=== PATIENT | female | born 1945 | race Caucasian/White ===

== ENCOUNTER → 2017-05-11 | Outpatient (CLI) | payer MEDICARE ==
--- NOTE | 2017-05-12 11:22 | ECHOF ---
Referral Reason:J44.9 COPD MEASUREMENTS -------- HEIGHT: 162.6 cm WEIGHT: 95.3 kg BP: RVIDd: 2.3 cm (< 3.3) IVSd: 1.2 cm (0.6 - 1.1) LVIDd: 4.6 cm (3.9 - 5.3) LVPWd: 1.3 cm (0.6 - 1.1) IVSs: 1.5 cm LVIDs: 2.8 cm LVPWs: 1.7 cm LAESV Index (A-L): 15.46 ml/m Ao Diam: 3.2 cm (2.0 - 3.7) AV Cusp: 1.6 cm (1.5 - 2.6) LA Diam: 3.0 cm (2.7 - 3.8) MV EXCURSION: 20.477 mm (> 18.000) MV EF SLOPE: 115 mm/s (70 - 150) EPSS: 0.6 cm MV E Aung: 0.74 m/s MV DecT: 321 ms MV A Aung: 1.04 m/s MV E/A Ratio: 0.71 RAP: 5.00 mmHg RVSP: 11.42 mmHg FINDINGS -------- Sinus rhythm. This was a technically adequate study. There is mild concentric left ventricular hypertrophy. Overall left ventricular systolic function is normal with, an EF between 60 - 65 %. The diastolic filling pattern is normal for the age of the patient 8.52. The right ventricle is normal in size and function. Normal LA size by volume 22+/-6 ml/m2. The right atrium is normal in size. Aortic valve is trileaflet and is mildly thickened. There is no evidence of aortic regurgitation. There is no evidence of aortic stenosis. The mitral valve leaflets are mildly thickened. Mild mitral annular calcification present. There is trace to mild mitral regurgitation. Trace tricuspid regurgitation present. There is no evidence of pulmonary hypertension. The right ventricular systolic pressure, as measured by Doppler, is 11.42mmHg. The pulmonic valve is normal. The aortic root size is normal. Normal inferior vena cava with normal inspiratory collapse consistent with estimated right atrial pressure of 5 mmHg. There is a small, generalized pericardial effusion present. CONCLUSIONS -------- 1. Sinus rhythm. 2. There is trace to mild mitral regurgitation. 3. Trace tricuspid regurgitation present. 4. There is no evidence of pulmonary hypertension. 5. The right ventricular systolic pressure, as measured by Doppler, is 11.42mmHg. 6. The aortic root size is normal. 7. There is a small, generalized pericardial effusion present. 8. This was a technically adequate study. 9. There is mild concentric left ventricular hypertrophy. 10. Overall left ventricular systolic function is normal with, an EF between 60 - 65 %. 11. The diastolic filling pattern is normal for the age of the patient 8.52 12. Normal LA size by volume 22+/-6 ml/m2. 13. Aortic valve is trileaflet and is mildly thickened. 14. The mitral valve leaflets are mildly thickened. 15. Mild mitral annular calcification present. BUSINESS INTELLIGENCE REPORTING ANALYST: Archana Norman RDCS
== END | disposition home or self-care (01) ==
LOC: RADECHMAIN 16:09
PROVIDERS: ATTEND Internal Medicine Critical Care Medicine
DX: I08.3 Combined rheumatic disorders of mitral, aortic and tricuspid valves (principal); I31.3 Pericardial effusion (noninflammatory)
CPT/HCPCS: 93306

== ENCOUNTER → 2018-12-28 | Outpatient (CLI) | payer MEDICARE ==
--- NOTE | 2018-12-28 16:40 | BD ---
EXAMINATION TYPE: Axial Bone Density DATE OF EXAM: 12/28/2018 COMPARISON: 06.14.2015 CLINICAL HISTORY: 73 YR OLD FEMALE....ICD-10 CODE: POST MENOPAUSAL Height: 61.2 Weight: 220 FRAX RISK QUESTIONS: Glucocorticoids (More than 3mos): YES (Ex: prednisone, prednisolone, methylprednisolone, dexamethasone, and hydrocortisone). History of Fracture in Adulthood: YES RISK FACTORS HISTORY OF: RT SHOULDER FRACTURE 2009...SURGICAL REPAIR...PT OVER AGE 50 Family History of Osteoporosis: YES, HER MOTHER...NO FX Postmenopausal woman: YES AT AGE 49... Take estrogen and/or progesterone medications: ONLY BCP IN PAST FOR 9 YRS Lost more than 2 inches in height since high school: YES Frequent falls: USES CANE, UNSTEADY MEDICATIONS: Prednisone or other steroids: ASTHMA INHALERS AND ORAL MEDS, PREDNISONE PRN, NEBULIZER PRN How Long: FOR MANY YRS Thyroid Medications: YES, SYNTHROID, FOR ABOUT 8 YRS Additional Medications: BP MEDS, VIT D SUPPLEMENT, IBUPROFEN , Additional History: OSTEOARTHRITIS, HYPERTENSION, PT USES A CANE, ASTHMA EXAM MEASUREMENTS: Bone mineral densitometry was performed using the [employer] System. Bone mineral density as measured about the Lumbar spine is: ----- L1-L4(G/cm2): 1.632 T Score Values are as follows: ----- L1: 2.4 ----- L2: 2.3 ----- L3: 2.9 ----- L4: 6.3 ----- L1-L4: 3.8 Bone mineral density has: Increased 8.0% since study of: 06.14.2015 Bone mineral density about the R hip (g/cm2): 1.086 Bone mineral density about the L hip (g/cm2): 1.201 T Score values are as follows: -----R Neck: 0.1 -----L Neck: -0.1 -----R Total: 0.6 -----L Total: 1.5 Bone mineral density has: Increased 0.7% since study of: 06.14.2015 FRAX%s: THERE IS A 16.2% CHANCE FOR A MAJOR OSTEOPOROTIC FX AND A 1.5% FOR HIP.....PROBABILITY OF FX IN 10 YRS TIME IMPRESSION: Normal (Values between +1 and -1 indicate normal bone mass). Consider repeating this study in 5 year s or sooner if there is some new clinical indication. NOTE: T-SCORE=SD OF THE YOUNG ADULT MEAN.
--- NOTE | 2018-12-30 09:50 | MM ---
Reason for exam: screening (asymptomatic). Last mammogram was performed 3 years and 6 months ago. History: Patient is postmenopausal. Family history of breast cancer in aunt at age 70. Took hormonal contraceptives for 7 years beginning at age 19. Physical Findings: A clinical breast exam by your physician is recommended on an annual basis and results should be correlated with mammographic findings. MG 3D Screening Mammo W/Cad Bilateral CC and MLO view(s) were taken. Prior study comparison: June 14, 2015, bilateral MG screening mammo w CAD. December 20, 2009, bilateral digital screening mammogram. There are scattered fibroglandular densities. No significant changes when compared with prior studies. ASSESSMENT: Benign, BI-RAD 2 RECOMMENDATION: Routine screening mammogram of both breasts in 1 year.
== END ==
LOC: RADBDWWP 14:13
PROVIDERS: ATTEND Internal Medicine
DX: Z12.31 Encounter for screening mammogram for malignant neoplasm of breast (principal); Z80.3 Family history of malignant neoplasm of breast; Z78.0 Asymptomatic menopausal state
CPT/HCPCS: 77063; 77067; 77080

== ENCOUNTER → 2019-06-08 | Outpatient (CLI) | payer MEDICARE ==
--- NOTE | 2019-06-08 13:51 | CT ---
EXAMINATION TYPE: CT brain wo con DATE OF EXAM: 06/08/2019 COMPARISON: None HISTORY: Headaches Unenhanced CT of the brain was performed. The ventricles, basal cisterns and sulci overlying the cerebral convexities demonstrate mild enlargem ent. There is no evidence for intracranial hemorrhage or sulcal effacement. There is decreased attenuation about the periventricular white matter and deep white matter of both c erebral hemispheres, compatible with chronic small vessel ischemia. Differential diagnosis does inclu de demyelination. No mass effects are seen.No midline shift. Osseous calvarium is intact. If symptoms persist consider MRI. IMPRESSION: 1. Age related atrophic and chronic small vessel ischemic change without acute intracranial process s een at this time.
== END | disposition home or self-care (01) ==
LOC: RADCTMAIN 13:23
PROVIDERS: ATTEND Internal Medicine
DX: G31.1 Senile degeneration of brain, not elsewhere classified (principal); I67.82 Cerebral ischemia
CPT/HCPCS: 70450

== ENCOUNTER → 2019-10-28 | Outpatient (CLI) | payer MEDICARE ==
--- NOTE | 2019-10-28 18:21 | CT ---
EXAMINATION TYPE: CT chest w con DATE OF EXAM: 10/28/2019 COMPARISON: Chest x-ray 10/12/2019, CT scan [birth year]/1960 HISTORY: SOB, COPD CT DLP: 474.5 mGycm Automated exposure control for dose reduction was used. CONTRAST: CT scan of the chest is performed with IV Contrast, patient injected with 100 mL of Isovue 300. FINDINGS: LUNGS: There is 6 x 5 mm parenchymal nodule posteriorly left lower lobe. This is stable from 2011 katy dy. There is stable 6 x 3 mm elongated nodule along fissure in the right midlung. Linear scarring an d/or atelectasis in both lung bases near diaphragms is present. There is no pleural effusion or pneum othorax seen bilaterally. The tracheobronchial tree is patent. There is a subpleural 6 mm nodule on a xial image 53 retrospectively stable as well. Groundglass changes are most typical of atelectasis. Sc attered areas of linear subsegmental consolidation most typical atelectasis. Emphysematous changes ar e noted and there does appear to be a degree of interlobular septal thickening which is often associa miky with mild chronic interstitial lung disease. MEDIASTINUM: There are no greater than 1 cm hilar or mediastinal lymph nodes. No pericardial effusi on is seen. There is stable cardiomegaly. No evidence of overt failure. There is coronary artery esteban cification in the LAD. There is mild atherosclerotic change in the visualized aorta. OTHER: Osseous structures are demineralized. Multilevel spurring and vacuum disc phenomenon is prese nt. Slight S-shaped scoliotic curvature is seen. Previously described subcentimeter right thyroid nod ule not clearly seen on today's study. Small accessory spleen incidentally noted. IMPRESSION: 1. Stable pulmonary nodules with no new sizable pulmonary nodule. Findings are stable since 2016 and therefore benign. 2. COPD. 3. Coronary artery calcification correlate for atherosclerotic disease.
== END | disposition home or self-care (01) ==
LOC: RADCTMAIN 15:29
PROVIDERS: ATTEND Internal Medicine Critical Care Medicine
DX: J44.9 Chronic obstructive pulmonary disease, unspecified (principal)
CPT/HCPCS: 82565; 84520; 71260; 36415; Q9967

== ENCOUNTER → 2021-01-03 | Outpatient (CLI) | payer MEDICARE ==
--- NOTE | 2021-01-03 12:10 | ECHOF ---
Referral Reason:R06.02 Shortness of breath MEASUREMENTS -------- HEIGHT: 165.1 cm WEIGHT: 95.3 kg BP: RVIDd: 3.7 cm (< 3.3) IVSd: 1.2 cm (0.6 - 1.1) LVIDd: 4.0 cm (3.9 - 5.3) LVPWd: 1.0 cm (0.6 - 1.1) IVSs: 1.4 cm LVIDs: 3.2 cm LVPWs: 1.2 cm LA Diam: 3.3 cm (2.7 - 3.8) Ao Diam: 3.1 cm (2.0 - 3.7) AV Cusp: 1.7 cm (1.5 - 2.6) MV EXCURSION: 17.007 mm (> 18.000) MV EF SLOPE: 104 mm/s (70 - 150) EPSS: 0.3 cm RAP: 5.00 mmHg RVSP: 23.88 mmHg FINDINGS -------- Sinus rhythm. This was a technically adequate study. The left ventricular size is normal. There is mild concentric left ventricular hypertrophy. Overa ll left ventricular systolic function is normal with, an EF between 55 - 60 %. The right ventricle is normal in size. The left atrial size is normal. The right atrial size is normal. There is mild aortic valve sclerosis. There is no evidence of aortic regurgitation. The mitral valve leaflets are mildly thickened. Mild mitral regurgitation is present. The tricuspid valve appears structurally normal. Mild tricuspid regurgitation present. Right vent ricular systolic pressure is normal at < 35 mmHg. There is no pulmonic regurgitation present. The aortic root size is normal. There is no pericardial effusion. CONCLUSIONS -------- 1. There is mild concentric left ventricular hypertrophy. 2. Overall left ventricular systolic function is normal with, an EF between 55 - 60 %. 3. The left atrial size is normal. 4. There is mild aortic valve sclerosis. 5. Mild mitral regurgitation is present. 6. Mild tricuspid regurgitation present. 7. There is no pericardial effusion. HARDENER HELPER: Archana Norman RDCS
== END | disposition home or self-care (01) ==
LOC: RADECHMAIN 11:18
PROVIDERS: ATTEND Internal Medicine
DX: I08.1 Rheumatic disorders of both mitral and tricuspid valves (principal)
CPT/HCPCS: 93306

== ENCOUNTER → 2021-11-28 | Outpatient (CLI) | payer MEDICARE ==
--- NOTE | 2021-11-29 08:58 | ECHOF ---
Referral Reason:J44.9 COPD MEASUREMENTS -------- HEIGHT: 165.1 cm WEIGHT: 95.3 kg BP: RVIDd: 2.4 cm (< 3.3) IVSd: 0.7 cm (0.6 - 1.1) LVIDd: 3.6 cm (3.9 - 5.3) LVPWd: 0.9 cm (0.6 - 1.1) IVSs: 1.4 cm LVIDs: 2.0 cm LVPWs: 1.7 cm Ao Diam: 3.0 cm (2.0 - 3.7) AV Cusp: 2.1 cm (1.5 - 2.6) LA Diam: 3.3 cm (2.7 - 3.8) MV E Aung: 0.93 m/s MV DecT: 111 ms MV A Aung: 0.58 m/s MV E/A Ratio: 1.61 RAP: 5.00 mmHg RVSP: 9.79 mmHg FINDINGS -------- Resting tachycardia (HR>100bpm). This was a technically difficult study with suboptimal views. Severe copd. Pt sitting up for test. The left ventricular size is normal. Left ventricular wall thickness is normal. Overall left vent ricular systolic function is normal with, an EF between 60 - 65 %. The right ventricle is normal in size. The left atrial size is normal. The right atrial size is normal. The aortic valve is trileaflet and appears structurally normal. The mitral valve is normal. There is trace mitral regurgitation. The tricuspid valve appears structurally normal. Trace tricuspid regurgitation present. Right cinda tricular systolic pressure is normal at < 35 mmHg. There is no pulmonic regurgitation present. The aortic root size is normal. Normal inferior vena cava with normal inspiratory collapse consistent with estimated right atrial pre ssure of 5 mmHg. There is a small, generalized pericardial effusion present. CONCLUSIONS -------- 1. Severe copd. Pt sitting up for test. 2. The left ventricular size is normal. 3. Left ventricular wall thickness is normal. 4. Overall left ventricular systolic function is normal with, an EF between 60 - 65 %. 5. There is trace mitral regurgitation. 6. Trace tricuspid regurgitation present. 7. The aortic root size is normal. 8. There is a small, generalized pericardial effusion present. LIVESTOCK JUDGING COACH: Sally Lou APRIL
== END | disposition home or self-care (01) ==
LOC: RADECHMAIN 10:49
PROVIDERS: ATTEND Internal Medicine Critical Care Medicine
DX: J44.9 Chronic obstructive pulmonary disease, unspecified (principal); I08.1 Rheumatic disorders of both mitral and tricuspid valves; I31.3 Pericardial effusion (noninflammatory)
CPT/HCPCS: 93306

== ENCOUNTER → 2022-04-18 | Outpatient (CLI) | payer MEDICARE ==
--- NOTE | 2022-04-21 08:09 | US ---
EXAMINATION TYPE: US kidneys/renal and bladder DATE OF EXAM: 04/18/2022 COMPARISON: NONE CLINICAL HISTORY: N18.30 CKD. CKD Stage 3. EXAM MEASUREMENTS: Right Kidney: 9.8 x 5.1 x 4.3 cm Left Kidney: 9.9 x 5.2 x 4.6 cm Right Kidney: Appearance of probable column of Raza. Left Kidney: No hydronephrosis or masses seen Bladder: Appears anechoic. Bilateral Jets seen: No, limited due to movement and great amount of artifact. Unable to properly e valuate. When scanning the right kidney adjacent liver is heterogeneously hyperechoic. Bladder not greatly distended. No intraluminal masses. IMPRESSION: No hydronephrosis is seen bilaterally.
== END | disposition home or self-care (01) ==
LOC: RADUSWWP 13:30
PROVIDERS: ATTEND Internal Medicine
DX: N18.30 Chronic kidney disease, stage 3 unspecified (principal)
CPT/HCPCS: 76770

== ENCOUNTER → 2022-05-07 | Outpatient (CLI) | payer MEDICARE ==
[2022-05-07 09:56] VITALS: BP 147/68; PULSE 82; RESP 18; TEMP 98.6
--- NOTE | 2022-05-07 10:11 | P.PAINPG ---
PQRS Measure Charge Sheet Comment: HISTORY OF PRESENT ILLNESS: 76 yr old female as a referral from Dr. Singer presents today with severe and chronic cervical pain secondary to DDD, disc bulges and facet arthropathy for evaluation. Pt states her pain level is 6/10 in intensity, dull, achy, sore in the lower neck and upper back with radiation of pain to the BL shoulders. Pain is provoked with overhead reaching. Pain is relieved with PT in January 2022, home based exercise as tolerated, heat with intermittent relief, medications ([place] from Dr Singer), topicals, injections (LESIs which were ineffective), repositioning and rest. Past Medical History: Asthma, Hypertension, Pulmonary Embolus (PE), Thyroid Disorder Additional Past Medical History / Comment(s): scoliosis, Vitamin D deficiency History of Any Multi-Drug Resistant Organisms: None Reported Past Surgical History: Orthopedic Surgery, Tonsillectomy Past Psychological History: No Psychological Hx Reported Smoking Status: Never smoker Past Alcohol Use History: Occasional Past Drug Use History: None Reported All: NKDA Meds: See list REVIEW OF ORGAN SYSTEMS: CONSTITUTIONAL: No fevers or chills. No recent weight loss. HEENT: No visual acuity loss, eye pain, difficulties with hearing. No nosebleeds. No difficulty swallowing. RESPIRATORY: Denies any troubles with breathing or dyspnea on exertion. CARDIOVASCULAR: Denies any chest pain, palpitations, or recent heart attacks. GASTROINTESTINAL: Denies fatty food intolerance. Has change in bowel habits and gas bloat. GENITOURINARY: Denies any blood in urine. Has increased urinary frequency. NEUROLOGICAL: + numbness and tingling along the distal extremities. No seizure disorders or headaches. MUSCULOSKELETAL: + back pain SKIN: No skin cancer. No rash. PSYCHIATRIC: Denies current depression or suicidal thoughts. ENDOCRINE: Denies current thyroid disorders. Denies any blood sugar glucose intolerance. HEME/LYMPHATIC: Denies any lumps and bumps around the neck. History of deep venous thrombosis. ALLERGY/IMMUNOLOGY: No immunoglobulin therapy. No immune deficiencies. BREAST: Denies current breast lumps, pain or nipple discharge. Physical Examinations : Constitutional : Cooperative , not in acute distress . HEENT: Neck supple. No Lymphadenopathy. Normal thyroid size . Eyes no ptosis , no icterus, no photophobia . Hearing intact. Normal oropharynx. No Thrush. Respiratory : Chest clear to auscultations bilaterally. No wheezing. No rhonchi. Cardiovascular : Regular rate and rhythm , S1 / S2. No S3 . No S4. Gastrointestinal : Abdomen soft. No tenderness. Bowel sounds x 4. No organomegaly . Genitourinary : Deferred. Neurologic : Cranial nerve II to XII intact. No focal neurological deficits. Psychiatric : alert & oriented x 3. Matching mood & appropriate affect. Judgment & insight intact. Lymphatic No Lymphadenopathy. Musculoskeletal : Cervical Spine Motor strength in the deltoid and biceps: Normal right side. Normal Left side Motor strength biceps and the wrist extensors: Normal right side . Normal left side Motor strength in the triceps muscle: Normal right side. Normal left side Deep tendon reflexes: Normal at the biceps. Normal at Brachioradialis. Normal at triceps Cervical facet loading test: positive bilaterally Spurling test: positive bilaterally Neck distraction test: positive bilaterally Hellen sign: positive bilaterally Lumbar spine Motor strength lower extremities ,thigh and legs 5/5 Right side , 5/5 Left side Deep tendon reflexes : Normal Knee Jerk. Normal Ankle Jerk Vertebral body tenderness over Lumbar facet Loading Test: positive Right / positive Left Range of motion of the lumbar spine Flexion 30 degrees, extension 10 degrees Straight Leg Raise test: Left/ Right positive at degree Noah test: positive right / positive left. Severe tenderness over the Sacroiliac joint on the Right / Left sides Gaenslen test: positive bilaterally Seated flexion test: positive bilaterally. 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 Pt may return to our clinic within 4-6 weeks for a reevaluation. Denies medical history of diabetes. Admits to Eliquis and ASA 81 mg use. Protocol for discontinuation/ continuation of medications chikis procedure discussed. All questions answered. I have spent greater than 50 minutes on patient care today. Dr Hilario was available by phone for the evaluation of this patient. The time was used to review the medical records including relevant urine studies and Prescription history (MAPs), review of the available imaging, evaluation and examination of the patient, coordination of care with the medical staff and if applicable referring physicians, as well as creation of the medical record - Pain Location Bilateral Shoulder Non-Pharmacological Interventions: Heat, Home Exercise, Inactivity, Physical Therapy, Position/Reposition, Stretching Pharmacological Interventions: PRN Medication, Topical Medication PQRS Narrative: Smoking Status Never smoker Pain Intensity [Bilateral 8 Shoulder] Scale Used Numeric (1 - 10) Hx Alcohol Use (MH) Yes Home Medications: Ambulatory Orders Aspirin [Adult Low Dose Aspirin EC] 81 mg PO DAILY 07/21/16 Hydrocodone/Acetaminophen [[place] 7.5-325] 1 tab PO Q6HR PRN 07/21/16 Ipratropium/Albuterol Sulfate [Combivent Respimat Inhaler] 1 puff INHALATION RT- Q4H PRN 07/21/16 Levothyroxine Sodium [Synthroid] 112 mcg PO DAILY 07/21/16 Apixaban [Eliquis] 5 mg PO BID 05/05/22 Cholecalciferol [Vitamin D3 (25 Mcg = 1000 Iu)] 50 mcg PO DAILY 05/05/22 Fluticasone/Umeclidin/Vilanter [Trelegy Ellipta 100-62.5-25] 1 inhalation INHALATION DAILY 05/05/22 Furosemide [Lasix] 40 mg PO BID 05/05/22 Ipratropium/Albuter 20-100Mcg [Combivent Respimat 20-100Mcg Inhaler] 1 puff INHALATION DAILY PRN 05/05/22 Metoprolol Succinate [Toprol XL] 75 mg PO DAILY 05/05/22 Controlled Substance Measures - Controlled Substance Measures Is patient prescribed a controlled substance at discharge?: No
--- NOTE | 2022-05-07 14:36 | XR ---
Lateral shoulders HISTORY: Bilateral shoulder pain 2 views of each shoulder Correlation to prior right humerus 04/08/2010 Postop changes are noted the proximal right humerus, there is heterotopic new bone formation about th e shoulder. Small ossific densities are present likely in the joint suggesting synovial ostial chondr omatosis. No acute fracture or dislocation is suspected. Arthropathy is present at the acromioclavicu lar joint. There is remodeling of the glenohumeral joint, humeral head. Distal acromial spur and down turned right distal acromion noted. Right lung apex as visualized is normal. There is thoracic spondy losis. 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 Arthropathy is present at the chromic clavicular joint. Distal a cromion is downturned. Left lung apex is normal. There is dense appearance of the aorta. 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
== END ==
LOC: PNWHC3 09:21
PROVIDERS: ATTEND Specialist
DX: M19.011 Primary osteoarthritis, right shoulder (principal); M19.012 Primary osteoarthritis, left shoulder; J45.909 Unspecified asthma, uncomplicated; I10 Essential (primary) hypertension; G89.29 Other chronic pain; M79.7 Fibromyalgia
CPT/HCPCS: 73020; G0463; 99211

== ENCOUNTER → 2022-06-02 | Outpatient (CLI) | payer MEDICARE ==
[2022-06-02 13:15] VITALS: BP 129/73; PULSE 95; RESP 18; TEMP 98.2
--- NOTE | 2022-06-11 07:28 | P.PAINPG ---
PQRS Measure Charge Sheet Comment: A 76 yr old female with a history of severe and chronic neck pain secondary to cervical degenerative disc diseases and spondylosis with facet arthropathy presents today for evaluation of BL shoulder pain. Reviewed BL shoulder x-rays with pt. Pain level is currently at 6/10 in intensity, constant, sore, achy sharp/ shooting towards BUEs. Pain is provoked by overhead reaching. Pain is alleviated with heat, medications ([place]), sit in a recliner, repositioning and rest. Interventional pain procedures completed include CESIs at Dr Singer's office Patient is currently on [place] Patient denies any side effects of the medication(s), denies excessive drowsiness or sleepiness, denies suicidal ideation and reports that the current pain medication is helping to control the pain and improve activities of daily living. Patient denies any motor or sensory deficits. Patient denies any fever or night sweats, denies any change in the bowel movements or urination. Physical Examination: -Constitutional: Cooperative. Not in acute distress . - Neurologic: Cranial nerve II to XII intact. No focal neurological d eficits. - Psychatric: Alert & oriented x 3. Matching mood & appropriate affect. Judgment and insight intact. - Musculoskeletal: Cervical spine: Muscle bulk/ tone/ strength in the bilateral upper extremities normal Vertebral body tenderness to palpation over C6, C7 Spurling test positive Distraction test positive Facet loading test positive Thoracic spine Muscle bulk / tone/ strength in the bilateral paraspinal muscles normal Vertebral body tender to palpation over Facet loading test positive Lumbar spine: Motor bulk/ tone/ strength lower extremities , thigh and legs : 5/5 Deep tendon reflexes : Normal Knee Jerk. Normal Ankle Jerk . Vertebral body tenderness to palpation over Lumbar Facet Loading Test positive Straight Leg Raise: positive at 30 degrees right side/ left side Gaenslen's Test positive Sacral spine : Severe tenderness over the Sacroiliac joint: right side / left side Range of motion: Flexion of the lumbar spine <60 degrees Range of motion: Extension of the lumbar spine <20 degrees Gaenslen's Test positive Sorin's Test positive Noah test: positive right side / left side Thigh Thrust Test Sacral Thrust Test Imaging: BL shoulder x-rays from 05/07/22 reviewed. Assessment and plan: Chronic low back pain secondary to cervical degenerative disc disease , spondylosis with facet arthropathy without myelopathy Recommendation of PT 3 times per week x 6 wks Re: M50.30, M19.019 MRI without contrast of the BL shoulders re: M19.019 Pt is established at Dr Singer's office. She will complete PT, and if she needs additional JUDITH's she may return to this clinic or follow up with Dr Singer as needed. Risks, benefits of procedure discussed and pt verbalized understanding. Denies anticoagulant use or medical history of diabetes. All patient questions answered MAPS reviewed and it was appropriate. I have spent less than 30 minutes on patient care today. Dr Hilario was available by phone for the evaluation of this patient. The time was used to review the medical records including relevant urine studies and Prescription history (MAPs), review of the available imaging, evaluation and examination of the patient, coordination of care with the medical staff and if applicable referring physicians, as well as creation of the medical record PQRS Narrative: Smoking Status Never smoker Hx Alcohol Use (MH) Yes Home Medications: Ambulatory Orders Aspirin [Adult Low Dose Aspirin EC] 81 mg PO DAILY 07/21/16 Hydrocodone/Acetaminophen [[place] 7.5-325] 1 tab PO Q6HR PRN 07/21/16 Ipratropium/Albuterol Sulfate [Combivent Respimat Inhaler] 1 puff INHALATION RT- Q4H PRN 07/21/16 Levothyroxine Sodium [Synthroid] 112 mcg PO DAILY 07/21/16 Apixaban [Eliquis] 5 mg PO BID 05/05/22 Cholecalciferol [Vitamin D3 (25 Mcg = 1000 Iu)] 50 mcg PO DAILY 05/05/22 Fluticasone/Umeclidin/Vilanter [Trelegy Ellipta 100-62.5-25] 1 inhalation INHALATION DAILY 05/05/22 Furosemide [Lasix] 40 mg PO BID 05/05/22 Ipratropium/Albuter 20-100Mcg [Combivent Respimat 20-100Mcg Inhaler] 1 puff INHALATION DAILY PRN 05/05/22 Metoprolol Succinate [Toprol XL] 75 mg PO DAILY 05/05/22 Controlled Substance Measures - Controlled Substance Measures Is patient prescribed a controlled substance at discharge?: No
== END ==
LOC: PNWHC3 12:04
PROVIDERS: ATTEND Specialist
DX: M50.30 Other cervical disc degeneration, unspecified cervical region (principal); G89.29 Other chronic pain; M54.50 Low back pain, unspecified; M47.812 Spondylosis without myelopathy or radiculopathy, cervical region
CPT/HCPCS: 99211

== ENCOUNTER → 2022-06-27 | Outpatient (CLI) | payer MEDICARE ==
--- NOTE | 2022-06-28 05:44 | MR ---
EXAMINATION TYPE: MR shoulder LT wo con DATE OF EXAM: 06/27/2022 COMPARISON: None HISTORY: Rt and Lt shoulder pain since Jan 2022 - Prev surgery on RT shoulder Multiplanar multiecho imaging of the left shoulder with no contrast. There is narrowing of the glenohumeral joint space. There is thickening and cystic changes around the biceps tendon. There is hypertrophic spurring of the anterior and posterior glenoid labrum. There is periarticular calcification in the joint spaces anteriorly and posteriorly consistent with synovial chondromatosis. There is a 4.3 x 1.5 cm septated fluid collection at the subscapularis tendon. There is thickening and some increased signal in the subscapularis tendon. There are small areas of increased signal in the supraspinatus tendon without retraction. There is mi ld spurring at the AC joint with mild subacromial impingement. There is spurring of the superior and inferior glenoid chao. There is moderate spurring of the humeral head. There is patchy mixed signal in the articular surface of the humeral head superiorly that could relate to avascular necrosis. This measures 15 mm in length. The infraspinatus tendon is intact. 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 Small tears of the supraspinatus tendon without a definite full-thickness tear. Moderate spurring of the glenoid chao. 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
--- NOTE | 2022-06-28 05:49 | MR ---
EXAMINATION TYPE: MR shoulder RT wo con DATE OF EXAM: 06/27/2022 COMPARISON: None HISTORY: Rt and Lt shoulder pain since Jan 2022 - Prev surgery on RT shoulder Multiplanar multiecho imaging of the right shoulder with no contrast. FINDINGS: There is extensive spurring at the glenohumeral joint. There is metal artifact from previous surgery at the humeral head superiorly. There is shoulder joint effusion. There are rounded foci of decreased signal in the joint effusion consistent with synovial chondromatosis. These measure up to 1.7 cm. Th ere is extensive spur formation on the anterior and posterior glenoid chao. Supraspinatus tendon is difficult to evaluate. There is no significant retraction. Metal artifact is obscuring the supraspina tus tendon at the greater tuberosity. There is some atrophy of the supraspinatus and infraspinatus mu scles. The subscapularis tendon shows some thickening and increased signal. There is extensive hypert rophic spurring on the inferior aspect of the humeral head. IMPRESSION: Advanced osteoarthritis in the shoulder joint. There is some atrophy of the supraspinatus and infrasp inatus muscles. Previous surgery. Extensive synovial chondromatosis with joint effusion. There is rosalie y likely tears of the supraspinatus and infraspinatus tendons.
== END | disposition home or self-care (01) ==
LOC: RADMRIMAIN 14:34
PROVIDERS: ATTEND Specialist
DX: M75.112 Incomplete rotator cuff tear or rupture of left shoulder, not specified as traumatic (principal); M19.012 Primary osteoarthritis, left shoulder

== ENCOUNTER → 2023-09-24 | Outpatient (CLI) | payer MEDICARE ==
[2023-09-24 09:12] VITALS: BP 135/89; PULSE 86; RESP 16; TEMP 98.6
--- NOTE | 2023-09-24 12:26 | P.PAINPG ---
PQRS Measure Charge Sheet Comment: A 78 yr old wheelchair bound female with a history of severe and chronic LBP x 2 yrs secondary to Lumbar DDD, spondylosis and facet arthropathy without myelopathy presents today for evaluation. Pain level is currently at 9/10 in intensity, constant, sore, achy in character without shooting pain. Pain is pr ovoked by walking/ standing for periods of 5 min or more. Pain is alleviated with injections in the past, heat, medications ([place], Flexeril), sit in a recliner, repositioning and rest. Oswestry axial pain score of 29. Interventional pain procedures completed include CESIs at Dr Singer's office Patient is currently on [place] #120 Patient denies any side effects of the medication(s), denies excessive drowsiness or sleepiness, denies suicidal ideation and reports that the current pain medication is helping to control the pain and improve activities of daily living. Patient denies any motor or sensory deficits. Patient denies any fever or night sweats, denies any change in the bowel movements or urination. Physical Examination: -Constitutional: Cooperative. Not in acute distress . - Neurologic: Cranial nerve II to XII intact. No focal neurological deficits. - Psychatric: Alert & oriented x 3. Matching mood & appropriate affect. Judgment and insight intact. - Musculoskeletal: Cervical spine: Muscle bulk/ tone/ strength in the bilateral upper extremities normal Vertebral body tenderness to palpation Spurling test positive Distraction test positive Facet loading test positive Thoracic spine Muscle bulk / tone/ strength in the bilateral paraspinal muscles normal Vertebral body tender to palpation over Facet loading test positive Lumbar spine: Motor bulk/ tone/ strength lower extremities , thigh and legs : 5/5 Deep tendon reflexes : Normal Knee Jerk. Normal Ankle Jerk . Vertebral body tenderness to palpation over Conti test positive Lumbar Facet Loading Test positive Straight Leg Raise: positive at 30 degrees right side/ left side Gaenslen's Test positive Sacral spine : Severe tenderness over the Sacroiliac joint: right side / left side Range of motion: Flexion of the lumbar spine <60 degrees Range of motion: Extension of the lumbar spine <20 degrees Gaenslen's Test positive Sorin's Test positive Noah test: positive right side / left side Thigh Thrust Test Sacral Thrust Test Imaging: None on file Assessment and plan: Chronic low back pain secondary to Lumbar DDD , spondylosis with facet arthropathy without myelopathy Recommendation of PT 3 times per week x 6 wks Re: M51.36 X ray of the Lumbar spine M51.36. May need additional testing if indicated. Pt is established at Dr Singer's office. She will complete undergo knee surgery this month, and if she needs JUDITH's she may return to this clinic or follow up with Dr Singer as needed. [place] 10/325 #120 w 1 RF. Use, side effects, adverse reactions and safe storage discussed. Narcotic/ opiate agreement signed 09/24/23. Pt acknowledged understanding. MAPS reviewed and it was appropriate. All patient questions answered. I have spent less than 30 minutes on patient care today. Dr Hilario was available by phone for the evaluation of this patient. The time was used to review the medical records including relevant urine studies and Prescription history (MAPs), review of the available imaging, evaluation and examination of the patient, coordination of care with the medical staff and if applicable referring physicians, as well as creation of the medical record PQRS Narrative: Smoking Status Never smoker Hx Alcohol Use (MH) Yes Home Medications: Ambulatory Orders Aspirin [Adult Low Dose Aspirin EC] 81 mg PO DAILY 07/21/16 Ipratropium/Albuterol Sulfate [Combivent Respimat Inhaler] 1 puff INHALATION RT- Q4H PRN 07/21/16 Levothyroxine Sodium [Synthroid] 112 mcg PO DAILY 07/21/16 Apixaban [Eliquis] 5 mg PO BID 05/05/22 Cholecalciferol [Vitamin D3 (25 Mcg = 1000 Iu)] 50 mcg PO DAILY 05/05/22 Fluticasone/Umeclidin/Vilanter [Trelegy Ellipta 100-62.5-25] 1 inhalation INHALATION DAILY 05/05/22 Furosemide [Lasix] 40 mg PO BID 05/05/22 Ipratropium/Albuter 20-100Mcg [Combivent Respimat 20-100Mcg Inhaler] 1 puff INHALATION DAILY PRN 05/05/22 Metoprolol Succinate [Toprol XL] 75 mg PO DAILY 05/05/22 HYDROcodone/APAP 10-325MG [[place] 10-325] 1 tab PO Q6H PRN 30 Days #120 tab 09/24/23 HYDROcodone/APAP 10-325MG [[place] 10-325] 1 tab PO Q6HR PRN 30 Days #120 tab 09/24/23 Controlled Substance Measures - Controlled Substance Measures Is patient prescribed a controlled substance at discharge?: Yes When asked, does pt state using other controlled substances?: No If prescribed controlled substance>3 days was MAPS reviewed?: Yes If Rx opioid, was Start Talking consent form obtained?: Yes Was information provided regarding opioid addiction?: Yes
== END ==
LOC: PNWHC3 07:59
PROVIDERS: ATTEND Specialist
DX: M51.36 Other intervertebral disc degeneration, lumbar region (principal); M47.816 Spondylosis without myelopathy or radiculopathy, lumbar region; G89.4 Chronic pain syndrome; Z79.01 Long term (current) use of anticoagulants; Z79.82 Long term (current) use of aspirin
CPT/HCPCS: 99211

== ENCOUNTER → 2023-10-19 | Outpatient (CLI) | payer MEDICARE ==
--- NOTE | 2023-10-19 13:40 | XR ---
EXAM TYPE: LUMBAR SPINE X RAY SERIES COMPARISON: NONE HISTORY: Pain TECHNIQUE: 4 views are submitted. FINDINGS: Alignment is anatomic. The pedicles are intact. The transverse processes are intact. There is no s pondylolysis or spondylolisthesis. Diffuse osteopenia. There is sclerosis of the left SI joint nena tible sacroiliitis. Multilevel facet arthropathy with grade 1 anterolisthesis L3-for L4-5. Bilateral foraminal encroachment at levels L3-S1. IMPRESSION: 1. Scoliotic curvature with diffuse osteopenic. Multilevel severe degenerative disc disease and facet arthropathy. Multilevel foraminal encroachment..
== END | disposition home or self-care (01) ==
LOC: RADXRMAIN 13:10
PROVIDERS: ATTEND Physician Assistant Medical
DX: M51.36 Other intervertebral disc degeneration, lumbar region (principal); M47.816 Spondylosis without myelopathy or radiculopathy, lumbar region; M85.88 Other specified disorders of bone density and structure, other site; M41.86 Other forms of scoliosis, lumbar region
CPT/HCPCS: 72100

== ENCOUNTER → 2023-12-24 | Outpatient (CLI) | payer MEDICARE ==
[2023-12-24 13:02] VITALS: BP 139/82; PULSE 88; RESP 16; TEMP 98.3
--- NOTE | 2023-12-24 14:25 | P.PAINPG ---
PQRS Measure Charge Sheet Comment: A 78 yr old wheelchair bound female with a history of severe and chronic LBP x 2 yrs secondary to Lumbar DDD, spondylosis and facet arthropathy without myelopathy presents today for evaluation. Pain level is currently at 9/10 in intensity, constant, sore, achy in character without shooting pain. Pain is pr ovoked by walking/ standing for periods of 5 min or more. Pain is alleviated with injections in the past, heat, medications, sit in a recliner, repositioning and rest. Oswestry axial pain score of 29. Interventional pain procedures completed include CESIs at Dr Singer's office Patient is currently on [place] #120, Flexeril Patient denies any side effects of the medication(s), denies excessive drowsiness or sleepiness, denies suicidal ideation and reports that the current pain medication is helping to control the pain and improve activities of daily living. Patient denies any motor or sensory deficits. Patient denies any fever or night sweats, denies any change in the bowel movements or urination. Physical Examination: -Constitutional: Cooperative. Not in acute distress . - Neurologic: Cranial nerve II to XII intact. No focal neurological deficits. - Psychatric: Alert & oriented x 3. Matching mood & appropriate affect. Judgment and insight intact. - Musculoskeletal: Cervical spine: Muscle bulk/ tone/ strength in the bilateral upper extremities normal Vertebral body tenderness to palpation Spurling test positive Distraction test positive Facet loading test positive Thoracic spine Muscle bulk / tone/ strength in the bilateral paraspinal muscles normal Vertebral body tender to palpation over Facet loading test positive Lumbar spine: Motor bulk/ tone/ strength lower extremities , thigh and legs : 5/5 Deep tendon reflexes : Normal Knee Jerk. Normal Ankle Jerk . Vertebral body tenderness to palpation over Conti test positive Lumbar Facet Loading Test positive Straight Leg Raise: positive at 30 degrees right side/ left side Gaenslen's Test positive Sacral spine : Severe tenderness over the Sacroiliac joint: right side / left side Range of motion: Flexion of the lumbar spine <60 degrees Range of motion: Extension of the lumbar spine <20 degrees Gaenslen's Test positive Sorin's Test positive Noah test: positive right side / left side Thigh Thrust Test Sacral Thrust Test Imaging: None on file Assessment and plan: Chronic low back pain secondary to Lumbar DDD , spondylosis with facet arthropathy without myelopathy Recommendation of PT 3 times per week x 6 wks Re: M51.36 . Will check UDS at next visit. Pt is established at Dr Singer's office. She will complete undergo knee surgery this month, and if she needs JUDITH's she may return to this clinic or follow up with Dr Singer as needed. [place] 10/325 #120 w 1 RF. Use, side effects, adverse reactions and safe storage discussed. Narcotic/ opiate a greement signed 09/24/23. Pt acknowledged understanding. MAPS reviewed and it was appropriate. All patient questions answered. I have spent less than 30 minutes on patient care today. Dr Hilario was available by phone for the evaluation of this patient. The time was used to review the medical records including relevant urine studies and Prescription history (MAPs), review of the available imaging, evaluation and examination of the patient, coordination of care with the medical staff and if applicable referring physicians, as well as creation of the medical record PQRS Narrative: Smoking Status Never smoker Hx Alcohol Use (MH) Yes Home Medications: Ambulatory Orders Aspirin [Adult Low Dose Aspirin EC] 81 mg PO DAILY 07/21/16 Ipratropium/Albuterol Sulfate [Combivent Respimat Inhaler] 1 puff INHALATION RT- Q4H PRN 07/21/16 Levothyroxine Sodium [Synthroid] 112 mcg PO DAILY 07/21/16 Apixaban [Eliquis] 5 mg PO BID 05/05/22 Cholecalciferol [Vitamin D3 (25 Mcg = 1000 Iu)] 50 mcg PO DAILY 05/05/22 Fluticasone/Umeclidin/Vilanter [Trelegy Ellipta 100-62.5-25] 1 inhalation INHALATION DAILY 05/05/22 Furosemide [Lasix] 40 mg PO BID 05/05/22 Ipratropium/Albuter 20-100Mcg [Combivent Respimat 20-100Mcg Inhaler] 1 puff INHALATION DAILY PRN 05/05/22 Metoprolol Succinate [Toprol XL] 75 mg PO DAILY 05/05/22 HYDROcodone/APAP 10-325MG [[place] 10-325] 1 tab PO Q6H PRN 30 Days #120 tab 12/24/23 HYDROcodone/APAP 10-325MG [[place] 10-325] 1 tab PO Q6HR PRN 30 Days #120 tab 12/24/23 Controlled Substance Measures - Controlled Substance Measures Is patient prescribed a controlled substance at discharge?: Yes When asked, does pt state using other controlled substances?: Yes If prescribed controlled substance>3 days was MAPS reviewed?: Yes
== END ==
LOC: PNWHC3 11:07
PROVIDERS: ATTEND Specialist
DX: M51.36 Other intervertebral disc degeneration, lumbar region (principal); M47.816 Spondylosis without myelopathy or radiculopathy, lumbar region; G89.29 Other chronic pain; Z79.82 Long term (current) use of aspirin
CPT/HCPCS: 99211

== ENCOUNTER → 2024-02-18 | Outpatient (CLI) | payer MEDICARE ==
[2024-02-18 11:48] VITALS: RESP 16
[2024-02-18 12:25] VITALS: BP 137/81; PULSE 80; TEMP 98.4
--- NOTE | 2024-02-18 14:10 | P.PAINPG ---
PQRS Measure Charge Sheet Comment: A 78 yr old wheelchair bound female with a history of severe and chronic LBP x 2 yrs secondary to Lumbar DDD, spondylosis and facet arthropathy without myelopathy presents today for medication refills. Pain level is currently at 8 /10 in intensity, constant, sore/ achy in character without shooting pain. Pain is provoked by walking/ standing for periods of 5 min or more. Pain is alleviated with PT x 6 wks which she is currently in, injections in the past, heat, medications, sit in a recliner, repositioning and rest. Oswestry axial pain score of 29. Interventional pain procedures completed include CESIs at Dr Singer's office Patient is currently on [place] #120, Flexeril Patient denies any side effects of the medication(s), denies excessive drowsiness or sleepiness, denies suicidal ideation and reports that the current pain medication is helping to control the pain and improve activities of daily living. Patient denies any motor or sensory deficits. Patient denies any fever or night sweats, denies any change in the bowel movements or urination. Physical Examination: -Constitutional: Cooperative. Not in acute distress . - Neurologic: Cranial nerve II to XII intact. No focal neurological deficits. - Psychatric: Alert & oriented x 3. Matching mood & appropriate affect. Judgment and insight intact. - Musculoskeletal: Cervical spine: Muscle bulk/ tone/ strength in the bilateral upper extremities normal Vertebral body tenderness to palpation Spurling test positive Distraction test positive Facet loading test positive Thoracic spine Muscle bulk / tone/ strength in the bilateral paraspinal muscles normal Vertebral body tender to palpation over Facet loading test positive Lumbar spine: Motor bulk/ tone/ strength lower extremities , thigh and legs : 5/5 Deep tendon reflexes : Normal Knee Jerk. Normal Ankle Jerk . Vertebral body tenderness to palpation over Conti test positive Lumbar Facet Loading Test positive Straight Leg Raise: positive at 30 degrees right side/ left side Gaenslen's Test positive Sacral spine : Severe tenderness over the Sacroiliac joint: right side / left side Range of motion: Flexion of the lumbar spine <60 degrees Range of motion: Extension of the lumbar spine <20 degrees Gaenslen's Test positive Sorin's Test positive Noah test: positive right side / left side Thigh Thrust Test Sacral Thrust Test Imaging: None on file Assessment and plan: Chronic low back pain secondary to Lumbar DDD , spondylosis with facet arthropathy without myelopathy Recommendation of PT to continue as directed . UDS collected 02/18/24. Pt is established at Dr Singer's office. She will complete undergo knee surgery this month, and if she needs JUDITH's she may return to this clinic or follow up with Dr Singer as needed. [place] 10/325 #120 w 1 RF. Use, side effects, adverse reactions and safe storage discussed. Narcotic/ opiate agreement signed 09/24/23. Pt acknowledged understanding. MAPS reviewed and it was appropriate. All patient questions answered. I have spent less than 30 minutes on patient care today. Dr Hilario was available by phone for the evaluation of this patient. The time was used to review the medical records including relevant urine studies and Prescription history (MAPs), review of the available imaging, evaluation and examination of the patient, coordination of care with the medical staff and if applicable referring physicians, as well as creation of the medical record PQRS Narrative: Smoking Status Never smoker Hx Alcohol Use (MH) Yes Home Medications: Ambulatory Orders Aspirin [Adult Low Dose Aspirin EC] 81 mg PO DAILY 07/21/16 Ipratropium/Albuterol Sulfate [Combivent Respimat Inhaler] 1 puff INHALATION RT- Q4H PRN 07/21/16 Levothyroxine Sodium [Synthroid] 112 mcg PO DAILY 07/21/16 Apixaban [Eliquis] 5 mg PO BID 05/05/22 Cholecalciferol [Vitamin D3 (25 Mcg = 1000 Iu)] 50 mcg PO DAILY 05/05/22 Fluticasone/Umeclidin/Vilanter [Trelegy Ellipta 100-62.5-25] 1 inhalation INHALATION DAILY 05/05/22 Furosemide [Lasix] 40 mg PO BID 05/05/22 Ipratropium/Albuter 20-100Mcg [Combivent Respimat 20-100Mcg Inhaler] 1 puff INHALATION DAILY PRN 05/05/22 Metoprolol Succinate [Toprol XL] 75 mg PO DAILY 05/05/22 HYDROcodone/APAP 10-325MG [[place] 10-325] 1 tab PO Q6H PRN 30 Days #120 tab 02/18/24 HYDROcodone/APAP 10-325MG [[place] 10-325] 1 tab PO Q6HR PRN 30 Days #120 tab 02/18/24 Controlled Substance Measures - Controlled Substance Measures Is patient prescribed a controlled substance at discharge?: Yes When asked, does pt state using other controlled substances?: No If prescribed controlled substance>3 days was MAPS reviewed?: Yes
== END ==
LOC: PNWHC3 11:00
PROVIDERS: ATTEND Specialist
DX: M51.36 Other intervertebral disc degeneration, lumbar region (principal); M47.816 Spondylosis without myelopathy or radiculopathy, lumbar region; G89.29 Other chronic pain
CPT/HCPCS: 99211

== ENCOUNTER → 2024-04-14 | Outpatient (CLI) | payer MEDICARE ==
[2024-04-14 13:08] VITALS: BP 123/71; PULSE 82; RESP 16
--- NOTE | 2024-04-14 14:52 | P.PAINPG ---
PQRS Measure Charge Sheet Comment: A 78 yr old wheelchair bound female with a history of severe and chronic LBP x 2 yrs secondary to Lumbar DDD, spondylosis and facet arthropathy without myelopathy presents today for medication refills. Pain level is currently at 7 /10 in intensity, constant, sore/ achy in character without shooting pain. Pain is provoked by walking/ standing for periods of 5 min or more. Pain is alleviated with PT x 6 wks which she is currently in, injections in the past, heat, medications, sit in a recliner, repositioning and rest. Oswestry axial pain score of 28. Interventional pain procedures completed include CESIs at Dr Singer's office Patient is currently on [place] #120, Flexeril Patient denies any side effects of the medication(s), denies excessive drowsiness or sleepiness, denies suicidal ideation and reports that the current pain medication is helping to control the pain and improve activities of daily living. Patient denies any motor or sensory deficits. Patient denies any fever or night sweats, denies any change in the bowel movements or urination. Physical Examination: -Constitutional: Cooperative. Not in acute distress . - Neurologic: Cranial nerve II to XII intact. No focal neurological deficits. - Psychatric: Alert & oriented x 3. Matching mood & appropriate affect. Judgment and insight intact. - Musculoskeletal: Cervical spine: Muscle bulk/ tone/ strength in the bilateral upper extremities normal Vertebral body tenderness to palpation Spurling test positive Distraction test positive Facet loading test positive Thoracic spine Muscle bulk / tone/ strength in the bilateral paraspinal muscles normal Vertebral body tender to palpation over Facet loading test positive Lumbar spine: Motor bulk/ tone/ strength lower extremities , thigh and legs : 5/5 Deep tendon reflexes : Normal Knee Jerk. Normal Ankle Jerk . Vertebral body tenderness to palpation over Conti test positive Lumbar Facet Loading Test positive Straight Leg Raise: positive at 30 degrees right side/ left side Gaenslen's Test positive Sacral spine : Severe tenderness over the Sacroiliac joint: right side / left side Range of motion: Flexion of the lumbar spine <60 degrees Range of motion: Extension of the lumbar spine <20 degrees Gaenslen's Test positive Sorin's Test positive Noah test: positive right side / left side Thigh Thrust Test Sacral Thrust Test Imaging: None on file Assessment and plan: Chronic low back pain secondary to Lumbar DDD , spondylosis with facet arthropathy without myelopathy Recommendation of medication management. UDS fr 02/18/24 reviewed and consistent. [place] 10/325 #120 w 1 RF. Use, side effects, adverse reactions and safe storage discussed. Narcotic/ opiate agreement signed 09/24/23. Pt acknowledged understanding. MAPS reviewed and it was appropriate. All patient questions answered. I have spent less than 30 minutes on patient care today. Dr Hilairo was available by phone for the evaluation of this patient. The time was used to review the medical records including relevant urine studies and Prescription history (MAPs), review of the available imaging, evaluation and examination of the patient, coordination of care with the medical staff and if applicable referring physicians, as well as creation of the medical record PQRS Narrative: Smoking Status Never smoker Hx Alcohol Use (MH) Yes Home Medications: Ambulatory Orders Aspirin [Adult Low Dose Aspirin EC] 81 mg PO DAILY 07/21/16 Ipratropium/Albuterol Sulfate [Combivent Respimat Inhaler] 1 puff INHALATION RT- Q4H PRN 07/21/16 Levothyroxine Sodium [Synthroid] 112 mcg PO DAILY 07/21/16 Apixaban [Eliquis] 5 mg PO BID 05/05/22 Cholecalciferol [Vitamin D3 (25 Mcg = 1000 Iu)] 50 mcg PO DAILY 05/05/22 Fluticasone/Umeclidin/Vilanter [Trelegy Ellipta 100-62.5-25] 1 inhalation INHALATION DAILY 05/05/22 Furosemide [Lasix] 40 mg PO BID 05/05/22 Ipratropium/Albuter 20-100Mcg [Combivent Respimat 20-100Mcg Inhaler] 1 puff INHALATION DAILY PRN 05/05/22 Metoprolol Succinate [Toprol XL] 75 mg PO DAILY 05/05/22 HYDROcodone/APAP 10-325MG [[place] 10-325] 1 tab PO Q6H PRN 30 Days #120 tab 03/24 02/13 HYDROcodone/APAP 10-325MG [[place] 10-325] 1 tab PO Q6HR PRN 30 Days #120 tab 04/14/24 Controlled Substance Measures - Controlled Substance Measures Is patient prescribed a controlled substance at discharge?: Yes When asked, does pt state using other controlled substances?: No If prescribed controlled substance>3 days was MAPS reviewed?: Yes
== END ==
LOC: PNWHC3 11:02
PROVIDERS: ATTEND Specialist
DX: M51.36 Other intervertebral disc degeneration, lumbar region (principal); M47.816 Spondylosis without myelopathy or radiculopathy, lumbar region
CPT/HCPCS: 99211

== ENCOUNTER → 2024-06-09 | Outpatient (CLI) | payer MEDICARE ==
[2024-06-09 11:44] VITALS: BP 135/63; PULSE 71; RESP 16
--- NOTE | 2024-06-09 14:14 | P.PAINPG ---
PQRS Measure Charge Sheet Comment: A 78 yr old wheelchair bound female with a history of severe and chronic LBP x 2 yrs secondary to Lumbar DDD, spondylosis and facet arthropathy without myelopathy presents today for medication refills. Pain level is currently at 7 /10 in intensity, constant, throbbing in character without shooting pain. Pain is provoked by walking/ standing for periods > 5 min. Pain is alleviated with PT x 6 wks which ended in March 2024, physician guided stretches daily since March 2024, injections in the past, heat, medications, sit in a recliner, repositioning and rest. Oswestry axial pain score of 27. Interventional pain procedures completed include CESIs at Dr Singer's office Patient is currently on [place] #120, Flexeril Patient denies any side effects of the medication(s), denies excessive drowsiness or sleepiness, denies suicidal ideation and reports that the current pain medication is helping to control the pain and improve activities of daily living. Patient denies any motor or sensory deficits. Patient denies any fever or night sweats, denies any change in the bowel movements or urination. Physical Examination: -Constitutional: Cooperative. Not in acute distress . - Neurologic: Cranial nerve II to XII intact. No focal neurological deficits. - Psychatric: Alert & oriented x 3. Matching mood & appropriate affect. Judgment and insight intact. - Musculoskeletal: Cervical spine: Muscle bulk/ tone/ strength in the bilateral upper extremities normal Vertebral body tenderness to palpation Spurling test positive Distraction test positive Facet loading test positive Thoracic spine Muscle bulk / tone/ strength in the bilateral paraspinal muscles normal Vertebral body tender to palpation over Facet loading test positive Lumbar spine: Motor bulk/ tone/ strength lower extremities , thigh and legs : 5/5 Deep tendon reflexes : Normal Knee Jerk. Normal Ankle Jerk . Vertebral body tenderness to palpation over Conti test positive Lumbar Facet Loading Test positive Straight Leg Raise: positive at 30 degrees right side/ left side Gaenslen's Test positive Sacral spine : Severe tenderness over the Sacroiliac joint: right side / left side Range of motion: Flexion of the lumbar spine <60 degrees Range of motion: Extension of the lumbar spine <20 degrees Gaenslen's Test positive Sorin's Test positive Noah test: positive right side / left side Thigh Thrust Test Sacral Thrust Test Imaging: X ray lumbar spine 09/04/21 reviewed X ray pelvis from 09/04/21 reviewed Assessment and plan: Chronic LBP secondary to DDD , spondylosis with facet arthropathy without myelopathy Recommendation of medication management. UDS fr 02/18/24 reviewed and consistent. [place] 10/325 #120 w 1 RF. Use, side effects, adverse reactions and safe storage discussed. Narcotic/ opiate agreement signed 09/24/23. Pt acknowledged understanding. MAPS reviewed and it was appropriate. All patient questions answered. I have spent less than 30 minutes on patient care today. Dr Hilario was available by phone for the evaluation of this patient. The time was used to review the medical records including relevant urine studies and Prescription history (MAPs), review of the available imaging, evaluation and examination of the patient, coordination of care with the medical staff and if applicable referring physicians, as well as creation of the medical record PQRS Narrative: Smoking Status Never smoker Hx Alcohol Use (MH) Yes Home Medications: Ambulatory Orders Aspirin [Adult Low Dose Aspirin EC] 81 mg PO DAILY 07/21/16 Ipratropium/Albuterol Sulfate [Combivent Respimat Inhaler] 1 puff INHALATION RT- Q4H PRN 07/21/16 Levothyroxine Sodium [Synthroid] 112 mcg PO DAILY 07/21/16 Apixaban [Eliquis] 5 mg PO BID 05/05/22 Cholecalciferol [Vitamin D3 (25 Mcg = 1000 Iu)] 50 mcg PO DAILY 05/05/22 Fluticasone/Umeclidin/Vilanter [Trelegy Ellipta 100-62.5-25] 1 inhalation INHALATION DAILY 05/05/22 Furosemide [Lasix] 40 mg PO BID 05/05/22 Ipratropium/Albuter 20-100Mcg [Combivent Respimat 20-100Mcg Inhaler] 1 puff INHALATION DAILY PRN 05/05/22 Metoprolol Succinate [Toprol XL] 75 mg PO DAILY 05/05/22 HYDROcodone/APAP 10-325MG [[place] 10-325] 1 tab PO Q6H PRN 30 Days #120 tab 04/14/24 HYDROcodone/APAP 10-325MG [[place] 10-325] 1 tab PO Q6HR PRN 30 Days #120 tab 04/14/24 Controlled Substance Measures - Controlled Substance Measures Is patient prescribed a controlled substance at discharge?: Yes When asked, does pt state using other controlled substances?: No If prescribed controlled substance>3 days was MAPS reviewed?: Yes
== END ==
LOC: PNWHC3 11:11
PROVIDERS: ATTEND Specialist
DX: M51.36 Other intervertebral disc degeneration, lumbar region (principal); M47.816 Spondylosis without myelopathy or radiculopathy, lumbar region
CPT/HCPCS: 99211

== ENCOUNTER → 2024-09-01 | Outpatient (CLI) | payer MEDICARE ==
[2024-09-01 11:22] VITALS: BP 163/91; PULSE 73; RESP 16; TEMP 97.1
--- NOTE | 2024-09-01 14:44 | P.PAINPG ---
Objective - Vital Signs Vital signs: Vital Signs Temp 97.1 F L 09/01/24 11:20 Pulse 73 09/01/24 11:20 Resp 16 09/01/24 11:20 BP 163/91 09/01/24 11:20 Pulse Ox 98 09/01/24 11:20 FiO2 Intake & Output 08/31/24 09/01/24 09/01/24 18:59 06:59 18:59 Weight 95.254 kg PQRS Measure Charge Sheet Mode of Arrival: Wheelchair Comment: A 78 yr old wheelchair bound female with a history of severe and chronic LBP > 2 yrs secondary to radiculopathy, spondylosis and facet arthropathy without myelopathy presents today for medication refills. Pain level is currently at 7 /10 in intensity, constant, throbbing in character without shooting pain. Pain is provoked by walking/ standing for periods > 5 min. Pain is alleviated with PT x 6 wks which ended in March 2024, physician guided stretches daily since March 2024, injections in the past, heat, medications, sit in a recliner, repositioning and rest. Interventional pain procedures completed include CESIs at Dr Singer's office Patient is currently on [place] #120, Flexeril Patient denies any side effects of the medication(s), denies excessive drowsiness or sleepiness, denies suicidal ideation and reports that the current pain medication is helping to control the pain and improve activities of daily living. Patient denies any motor or sensory deficits. Patient denies any fever or night sweats, denies any change in the bowel movements or urination. Physical Examination: -Constitutional: Cooperative. Not in acute distress . - Neurologic: Cranial nerve II to XII intact. No focal neurological deficits. - Psychatric: Alert & oriented x 3. Matching mood & appropriate affect. Judgment and insight intact. - Musculoskeletal: Cervical spine: Muscle bulk/ tone/ strength in the bilateral upper extremities normal Vertebral body tenderness to palpation Spurling test positive Distraction test positive Facet loading test positive Thoracic spine Muscle bulk / tone/ strength in the bilateral paraspinal muscles normal Vertebral body tender to palpation over Facet loading test positive Lumbar spine: Motor bulk/ tone/ strength lower extremities , thigh and legs : 5/5 Deep tendon reflexes : Normal Knee Jerk. Normal Ankle Jerk . Vertebral body tenderness to palpation over Conti test positive Lumbar Facet Loading Test positive Straight Leg Raise: positive at 30 degrees right side/ left side Gaenslen's Test positive Sacral spine : Severe tenderness over the Sacroiliac joint: right side / left side Range of motion: Flexion of the lumbar spine <60 degrees Range of motion: Extension of the lumbar spine <20 degrees Gaenslen's Test positive Sorin's Test positive Noah test: positive right side / left side Thigh Thrust Test Sacral Thrust Test Imaging: X ray lumbar spine 09/04/21 reviewed X ray pelvis from 09/04/21 reviewed Assessment and plan: Chronic LBP secondary to radiculopathy, spondylosis with facet arthropathy without myelopathy Recommendation of medication management. UDS fr 02/18/24 reviewed and consistent. Pt cannot provide urine sample so will check UDS at next visit. [place] #120 w 1 RF. Use, side effects, adverse reactions and safe storage discussed. Narcotic/ opiate agreement signed 09/24/23. Pt acknowledged understanding. MAPS reviewed and it was appropriate. All patient questions answered. I have spent less than 30 minutes on patient care today. Dr Hilario was available by phone for the evaluation of this patient. The time was used to review the medical records including relevant urine studies and Prescription history (MAPs), review of the available imaging, evaluation and examination of the patient, coordination of care with the medical staff and if applicable referring physicians, as well as creation of the medical record - Pain Location Bilateral Lower Back Non-Pharmacological Interventions: Heat, Inactivity Pharmacological Interventions: PRN Medication, Scheduled Medication PQRS Narrative: Smoking Status Never smoker Blood Pressure 163/91 Pain Intensity [Bilateral 7 Lower Back] Scale Used Numeric (1 - 10) Hx Alcohol Use (MH) Yes Home Medications: Ambulatory Orders Aspirin [Adult Low Dose Aspirin EC] 81 mg PO DAILY 07/21/16 Ipratropium/Albuterol Sulfate [Combivent Respimat Inhaler] 1 puff INHALATION RT- Q4H PRN 07/21/16 Levothyroxine Sodium [Synthroid] 112 mcg PO DAILY 07/21/16 Apixaban [Eliquis] 5 mg PO BID 05/05/22 Cholecalciferol [Vitamin D3 (25 Mcg = 1000 Iu)] 50 mcg PO DAILY 05/05/22 Fluticasone/Umeclidin/Vilanter [Trelegy Ellipta 100-62.5-25] 1 inhalation INHALATION DAILY 05/05/22 Furosemide [Lasix] 40 mg PO BID 05/05/22 Ipratropium/Albuter 20-100Mcg [Combivent Respimat 20-100Mcg Inhaler] 1 puff INHALATION DAILY PRN 05/05/22 Metoprolol Succinate [Toprol XL] 75 mg PO DAILY 05/05/22 HYDROcodone/APAP 10-325MG [[place] 10-325] 1 tab PO Q6HR PRN 30 Days #120 tab 09/01/24 HYDROcodone/APAP 10-325MG [[place] 10-325] 1 tab PO QID PRN 30 Days #120 tab 09/01/24 Controlled Substance Measures - Controlled Substance Measures Is patient prescribed a controlled substance at discharge?: Yes When asked, does pt state using other controlled substances?: No If prescribed controlled substance>3 days was MAPS reviewed?: Yes
== END | disposition home or self-care (01) ==
LOC: PNWHC3 11:06
PROVIDERS: ATTEND Specialist
DX: M47.26 Other spondylosis with radiculopathy, lumbar region (principal)
CPT/HCPCS: 99211

== ENCOUNTER 2024-09-28 12:03 | Day surgery (SDC) | payer MEDICARE ==
[~2024-09-28 12:03] MED LIST: LACTATED RINGERS 1,000 ML IV SCH
[2024-09-28] MEDS: IV FLUID CONTINUATION 1,000 ML IV ONE (12:30)
[2024-09-28 12:35] VITALS: TEMP 98.2
[2024-09-28 12:51] LABS: Glucose,Whole Blood 94 mg/dL (70-110)
[2024-09-28] MEDS: LIDOCAINE 2% URO-JET JELLY 5 ML KIT MISCELLANE ONE ×2 (12:51→13:14)
[2024-09-28] MEDS: LIDOCAINE 2% INJ 20 MG/ML INTRATRACH ONE (12:52)
[2024-09-28] MEDS: LACTATED RINGERS 1,000 ML IV SCH (12:53)
[2024-09-28] MEDS ORDERED: LIDOCAINE 1% INJ 10MG/ML (20 ML MDV) ONE (13:00)
[2024-09-28] MEDS ORDERED: PROPOFOL 10 MG/ML 20 ML VIAL IV ONE (13:00)
[2024-09-28] MEDS ORDERED: HYDROmorphone (PF) 1 MG/ML ONE (13:00)
--- NOTE | 2024-09-28 13:26 | P.PCN ---
Date of Procedure: 09/28/24 Preoperative Diagnosis: Tracheobronchitis, COPD exacerbation Postoperative Diagnosis: Tracheobronchitis, COPD exacerbation, tracheobronchomalacia Procedure(s) Performed: Bronchoscopy, bronchial lavage of the right middle lobe Anesthesia: FRANNY Surgeon: Nathalia Ruff Pathology: other Condition: stable Disposition: same day Operative Findings: Shortness of breath, tracheobronchitis and symptoms of COPD exacerbation, refractory to treatment with antibiotics and steroids. Bronchoscopy and bronchial lavage was indicated The procedure was done in the endoscopy room. This was done under conscious sedation. Consent was obtained. A timeout was done. Following that, a flexible bronchoscope was carefully inserted through the left nostril and was advanced into the posterior pharynx and into the larynx. The upper airway structures were essentially within normal limits. Epiglottis, vallecula, aryte noids and the vocal cords were all within normal limits. The vocal cord function and mobility was within normal limits with normal abduction and adduction. A total of 2 cc of 1% lidocaine was applied to the vocal cords and following the bronchoscope was advanced into the upper trachea. 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 At the same time, there was some respiratory secretions retained within the airway that was easily suctioned out without any major difficulties. Airway inspection was completed and the entire airway system was evaluated including trachea, bilateral mainstem bronchi, right upper lobe bronchus, bronchus intermedius, right middle lobe and right lower lobe bronchus and the various segments on the right and examination left-sided to the left upper lobe bronchus and left lower lobe bronchus and the various segments on the left. After performing adequate therapeutic airway suctioning, bronchial lavage of the right middle lobe was done. A total of 40 cc was infused and 25 cc of aspirate without any major difficulties. At the completion of the procedure, the respiratory secretions were suctioned out and the bronchoscope was removed and the patient was transferred to recovery in stable condition. The bronchial lavage from the right middle lobe will be sent for microbial cultures and analysis. No endobronchial tumors. No foreign bodies. Minimal mucosal inflammatory changes noted throughout the airway. 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
[2024-09-28 13:53] VITALS: BP 135/76; PULSE 90; RESP 18
== END 2024-09-28 14:11 | disposition home or self-care (01) ==
LOC: ORWHC2ENDO 12:03
PROVIDERS: ATTEND Internal Medicine Critical Care Medicine
DX: J44.1 Chronic obstructive pulmonary disease with (acute) exacerbation (principal); J39.8 Other specified diseases of upper respiratory tract; I10 Essential (primary) hypertension; E03.9 Hypothyroidism, unspecified; Z91.89 Other specified personal risk factors, not elsewhere classified; Z79.82 Long term (current) use of aspirin; Z79.01 Long term (current) use of anticoagulants; Z79.890 Hormone replacement therapy; Z79.52 Long term (current) use of systemic steroids; Z79.899 Other long term (current) drug therapy; Z87.891 Personal history of nicotine dependence; Z86.711 Personal history of pulmonary embolism; Z88.8 Allergy status to other drugs, medicaments and biological substances
CPT/HCPCS: 31624; 31645; 87070; 87102; 87116; 87205; 87206

== ENCOUNTER → 2024-11-10 | Outpatient (CLI) | payer MEDICARE ==
[2024-11-11 11:52] LABS: Serum Amphetamine Negative; Serum Barbiturates Negative; Serum Benzodiazepine Negative; Serum Cocaine Negative; Serum Methadone Negative; Serum Opiates Negative; Serum Phencyclidine Negative; Serum Propoxyphene Negative; Serum THC (Cannabis) Negative
== END | disposition home or self-care (01) ==
LOC: LABWHC1 15:09
PROVIDERS: ATTEND Specialist
DX: Z02.83 Encounter for blood-alcohol and blood-drug test (principal)
CPT/HCPCS: 36415; 80307

== ENCOUNTER → 2024-11-10 | Outpatient (CLI) | payer MEDICARE ==
[2024-11-10 15:05] VITALS: BP 114/81; PULSE 91; RESP 16
--- NOTE | 2024-11-10 15:17 | P.PAINPG ---
PQRS Measure Charge Sheet Comment: A 79 yr old wheelchair bound female with a history of severe and chronic LBP > 2 yrs secondary to radiculopathy, spondylosis and facet arthropathy without myelopathy presents today for medication refills. Pain level is currently at 8-9 /10 in intensity, constant, throbbing in character without shooting pain. Pain is provoked by walking/ standing for periods > 5 min. Pain is alleviated with PT x 6 wks which ended in March 2024, physician guided stretches daily since March 2024, injections in the past, heat, medications, sit in a recliner, repositioning and rest. Interventional pain procedures completed include CESIs at Dr Singer's office Patient is currently on [place] #120, Flexeril Patient denies any side effects of the medication(s), denies excessive drowsiness or sleepiness, denies suicidal ideation and reports that the current pain medication is helping to control the pain and improve activities of daily living. Patient denies any motor or sensory deficits. Patient denies any fever or night sweats, denies any change in the bowel movements or urination. Physical Examination: -Constitutional: Cooperative. Not in acute distress . - Neurologic: Cranial nerve II to XII intact. No focal neurological deficits. - Psychatric: Alert & oriented x 3. Matching mood & appropriate affect. [place] gment and insight intact. - Musculoskeletal: Cervical spine: Muscle bulk/ tone/ strength in the bilateral upper extremities normal Vertebral body tenderness to palpation Spurling test positive Distraction test positive Facet loading test positive Thoracic spine Muscle bulk / tone/ strength in the bilateral paraspinal muscles normal Vertebral body tender to palpation over Facet loading test positive Lumbar spine: Motor bulk/ tone/ strength lower extremities , thigh and legs : 5/5 Deep tendon reflexes : Normal Knee Jerk. Normal Ankle Jerk . Vertebral body tenderness to palpation over Conti test positive Lumbar Facet Loading Test positive Straight Leg Raise: positive at 30 degrees right side/ left side Gaenslen's Test positive Sacral spine : Severe tenderness over the Sacroiliac joint: right side / left side Range of motion: Flexion of the lumbar spine <60 degrees Range of motion: Extension of the lumbar spine <20 degrees Gaenslen's Test positive Sorin's Test positive Noah test: positive right side / left side Thigh Thrust Test Sacral Thrust Test Imaging: X ray lumbar spine 09/04/21 reviewed X ray pelvis from 09/04/21 reviewed Assessment and plan: Chronic LBP secondary to radiculopathy, spondylosis with facet arthropathy without myelopathy Recommendation of medication management. Blood tox screen script provided 11/10/24. [place] [id number] #120 w 1 RF. Use, side effects, adverse reactions and safe storage discussed. Narcotic/ opiate agreement renewed 11/10/24. Pt acknowledged understanding. MAPS reviewed and it was appropriate. All patient questions answered. I have spent less than 30 minutes on patient care today. Dr Hilario was available by phone for the evaluation of this patient. The time was used to review the medical records including relevant urine studies and Prescription history (MAPs), review of the available imaging, evaluation and examination of the patient, coordination of care with the medical staff and if applicable referring physicians, as well as creation of the medical record PQRS Narrative: Smoking Status Never smoker Hx Alcohol Use (MH) Yes Home Medications: Ambulatory Orders Aspirin [Adult Low Dose Aspirin EC] 81 mg PO DAILY 07/21/16 Ipratropium/Albuterol Sulfate [Combivent Respimat Inhaler] 1 puff INHALATION RT- Q4H PRN 07/21/16 Levothyroxine Sodium [Synthroid] 112 mcg PO DAILY 07/21/16 Apixaban [Eliquis] 5 mg PO BID 05/05/22 Cholecalciferol [Vitamin D3 (25 Mcg = 1000 Iu)] 2,000 units PO DAILY 05/05/22 Fluticasone/Umeclidin/Vilanter [Trelegy Ellipta 100-62.5-25] 1 inhalation INHALATION DAILY 05/05/22 Furosemide [Lasix] 40 mg PO BID 05/05/22 Ipratropium/Albuter 20-100Mcg [Combivent Respimat 20-100Mcg Inhaler] 1 puff INHALATION DAILY PRN 05/05/22 Metoprolol Succinate [Toprol XL] 100 mg PO DAILY 05/05/22 HYDROcodone/APAP 10-325MG [[place] 10-325] 1 tab PO QID PRN 30 Days #120 tab 09/01/24 Multivit-Min/Iron/Folic/Lutein [Centrum Silver Women Tablet] 1 tab PO DAILY 09/26/24 Potassium (Unk) 10 meq PO MOWEFR 11/04/24 predniSONE 10 mg PO DAILY 09/26/24 HYDROcodone/APAP 10-325MG [[place] 10-325] 1 tab PO QID PRN 30 Days #120 tab 10/27/24 Controlled Substance Measures - Controlled Substance Measures Is patient prescribed a controlled substance at discharge?: Yes When asked, does pt state using other controlled substances?: No If prescribed controlled substance>3 days was MAPS reviewed?: Yes If Rx opioid, was Start Talking consent form obtained?: Yes Was information provided regarding opioid addiction?: Yes
== END ==
LOC: PNWHC3 14:15
PROVIDERS: ATTEND Specialist
DX: M47.26 Other spondylosis with radiculopathy, lumbar region (principal); G89.4 Chronic pain syndrome
CPT/HCPCS: 99211

== ENCOUNTER → 2025-01-25 | Outpatient (CLI) | payer MEDICARE ==
[2025-01-25 12:37] VITALS: BP 127/84; PULSE 86; RESP 16; TEMP 97.1
--- NOTE | 2025-01-25 15:42 | P.PAINPG ---
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 Pain level is currently at 8-9 /10 in intensity, constant, throbbing in character without shooting pain. Pain is provoked by walking/ standing for periods > 5 min. Pain is alleviated with PT x 6 wks which ended in March 2024, physician guided stretches daily since March 2024, injections in the past, heat, medications, sit in a recliner, repositioning and rest. Interventional pain procedures completed include CESIs at Dr Singer's office Patient is currently on [place] #120, Flexeril Patient denies any side effects of the medication(s), denies excessive drowsiness or sleepiness, denies suicidal ideation and reports that the current pain medication is helping to control the pain and improve activities of daily living. Patient denies any motor or sensory deficits. Patient denies any fever or night sweats, denies any change in the bowel movements or urination. Physical Examination: -Constitutional: Cooperative. Not in acute distress . - Neurologic: Cranial nerve II to XII intact. No focal neurological deficits. - Psychatric: Alert & oriented x 3. Matching mood & appropriate affect. Judgment and insight intact. - Musculoskeletal: Cervical spine: Muscle bulk/ tone/ strength in the bilateral upper extremities normal Vertebral body tenderness to palpation Spurling test positive Distraction test positive Facet loading test positive Thoracic spine Muscle bulk / tone/ strength in the bilateral paraspinal muscles normal Vertebral body tender to palpation over Facet loading test positive Lumbar spine: Motor bulk/ tone/ strength lower extremities , thigh and legs : 5/5 Deep tendon reflexes : Normal Knee Jerk. Normal Ankle Jerk . Vertebral body tenderness to palpation over Conti test positive Lumbar Facet Loading Test positive Straight Leg Raise: positive at 30 degrees right side/ left side Gaenslen's Test positive Sacral spine : Severe tenderness over the Sacroiliac joint: right side / left side Range of motion: Flexion of the lumbar spine <60 degrees Range of motion: Extension of the lumbar spine <20 degrees Gaenslen's Test positive Sorin's Test positive Noah test: positive right side / left side Thigh Thrust Test Sacral Thrust Test Imaging: X ray lumbar spine 09/04/21 reviewed X ray pelvis from 09/04/21 reviewed Assessment and plan: Chronic LBP secondary to radiculopathy, spondylosis with facet arthropathy without myelopathy Recommendation of medication management. Blood tox screen script provided 11/10/24 reviewed and consistent. Repeat UDS 01/25/25. [place] #120 w 1 RF. Use, side effects, adverse reactions and safe storage discussed. Narcotic/ opiate agreement renewed 11/10/24. Pt acknowledged understanding. MAPS reviewed and it was appropriate. All patient questions answered. I have spent less than 30 minutes on patient care today. Dr Hilario was available by phone for the evaluation of this patient. The time was used to review the medical records including relevant urine studies and Prescription history (MAPs), review of the available imaging, evaluation and examination of the patient, coordination of care with the medical staff and if applicable referring physicians, as well as creation of the medical record PQRS Narrative: Smoking Status Never smoker Narcotic Agreement Date Signed 11/10/24 Hx Alcohol Use (MH) Yes Home Medications: Ambulatory Orders Aspirin [Adult Low Dose Aspirin EC] 81 mg PO DAILY 07/21/16 Ipratropium/Albuterol Sulfate [Combivent Respimat Inhaler] 1 puff INHALATION RT- Q4H PRN 07/21/16 Levothyroxine Sodium [Synthroid] 112 mcg PO DAILY 07/21/16 Apixaban [Eliquis] 5 mg PO BID 05/05/22 Cholecalciferol [Vitamin D3 (25 Mcg = 1000 Iu)] 2,000 units PO DAILY 05/05/22 Fluticasone/Umeclidin/Vilanter [Trelegy Ellipta 100-62.5-25] 1 inhalation INHALATION DAILY 05/05/22 Furosemide [Lasix] 40 mg PO BID 05/05/22 Ipratropium/Albuter 20-100Mcg [Combivent Respimat 20-100Mcg Inhaler] 1 puff INHALATION DAILY PRN 05/05/22 Metoprolol Succinate [Toprol XL] 100 mg PO DAILY 05/05/22 Multivit-Min/Iron/Folic/Lutein [Centrum Silver Women Tablet] 1 tab PO DAILY 09/26/24 Potassium (Unk) 10 meq PO MOWEFR 09/26/24 predniSONE 10 mg PO DAILY 09/26/24 HYDROcodone/APAP 10-325MG [[place] 10-325] 1 tab PO QID PRN 30 Days #120 tab 11/10/24 HYDROcodone/APAP 10-325MG [[place] 10-325] 1 tab PO QID PRN 30 Days #120 tab 11/10/24 Controlled Substance Measures - Controlled Substance Measures Is patient prescribed a controlled substance at discharge?: Yes When asked, does pt state using other controlled substances?: No If prescribed controlled substance>3 days was MAPS reviewed?: Yes
== END ==
LOC: PNWHC3 10:50
PROVIDERS: ATTEND Specialist
DX: M47.26 Other spondylosis with radiculopathy, lumbar region (principal); G89.29 Other chronic pain
CPT/HCPCS: 80307; 99212

== ENCOUNTER → 2025-03-22 | Outpatient (CLI) | payer MEDICARE ==
[2025-03-22 12:53] VITALS: BP 122/77; PULSE 92; RESP 18; TEMP 95.9
--- NOTE | 2025-03-22 16:50 | P.PAINPG ---
Objective - Vital Signs Vital signs: Vital Signs Temp 95.9 F L 03/22/25 12:50 Pulse 92 03/22/25 12:50 Resp 18 03/22/25 12:50 BP 122/77 03/22/25 12:50 Pulse Ox 97 03/22/25 12:50 FiO2 Intake & Output 03/21/25 03/22/25 03/22/25 18:59 06:59 18:59 Weight 95.254 kg PQRS Measure Charge Sheet Mode of Arrival: Wheelchair Comment: A 79 yr old wheelchair bound female w granddaughter at side with a history of severe and chronic LBP > 2 yrs secondary to radiculopathy, spondylosis and facet arthropathy without myelopathy presents today for medication refills. Pain level is currently at 8-9 /10 in intensity, constant, throbbing in character without shooting pain. Pain is provoked by walking/ standing for periods > 5 min. Pain is alleviated with PT x 6 wks which ended in March 2024, physician guided stretche s daily since March 2024, injections in the past, heat, medications, sit in a recliner, repositioning and rest. Interventional pain procedures completed include CESIs at Dr Singer's office Patient is currently on [place] 10/325 #120, Flexeril 10mg #30 Patient denies any side effects of the medication(s), denies excessive drowsiness or sleepiness, denies suicidal ideation and reports that the current pain medication is helping to control the pain and improve activities of daily living. Patient denies any motor or sensory deficits. Patient denies any fever or night sweats, denies any change in the bowel movements or urination. Physical Examination: -Constitutional: Cooperative. Not in acute distress . - Neurologic: Cranial nerve II to XII intact. No focal neurological deficits. - Psychatric: Alert & oriented x 3. Matching mood & appropriate affect. Judgment and insight intact. - Musculoskeletal: Cervical spine: Muscle bulk/ tone/ strength in the bilateral upper extremities normal Vertebral body tenderness to palpation Spurling test positive Distraction test positive Facet loading test positive Thoracic spine Muscle bulk / tone/ strength in the bilateral paraspinal muscles normal Vertebral body tender to palpation over Facet loading test positive Lumbar spine: Motor bulk/ tone/ strength lower extremities , thigh and legs : 5/5 Deep tendon reflexes : Normal Knee Jerk. Normal Ankle Jerk . Vertebral body tenderness to palpation over Conti test positive Lumbar Facet Loading Test positive Straight Leg Raise: positive at 30 degrees right side/ left side Gaenslen's Test positive Sacral spine : Severe tenderness over the Sacroiliac joint: right side / left side Range of motion: Flexion of the lumbar spine <60 degrees Range of motion: Extension of the lumbar spine <20 degrees Gaenslen's Test positive Sorin's Test positive Noah test: positive right side / left side Thigh Thrust Test Sacral Thrust Test Imaging: X ray lumbar spine 09/04/21 reviewed X ray pelvis from 09/04/21 reviewed Assessment and plan: Chronic LBP secondary to radiculopathy, spondylosis with facet arthropathy without myelopathy Recommendation of medication management. UDS 01/25/25 reviewed and consistent. [place] 10/325 #120 + Flexeril 10mg #30 w 1 RF. Use, side effects, adverse reactions and safe storage discussed. Narcotic/ opiate agreement renewed 11/10/24. Pt acknowledged understanding. MAPS reviewed and it was appropriate. All patient questions answered. I have spent less than 30 minutes on patient care today. Dr Hilario was available by phone for the evaluation of this patient. The time was used to review the medical records including relevant urine studies and Prescription history (MAPs), review of the available imaging, evaluation and examination of the patient, coordination of care with the medical staff and if applicable referring physicians, as well as creation of the medical record - Pain Location Lower Back Pharmacological Interventions: PRN Medication PQRS Narrative: Smoking Status Never smoker Narcotic Agreement Date Signed 11/10/24 Blood Pressure 122/77 Pain Intensity [Lower Back] 9 Scale Used Numeric (1 - 10) Hx Alcohol Use (MH) Yes Home Medications: Ambulatory Orders Aspirin [Adult Low Dose Aspirin EC] 81 mg PO DAILY 07/21/16 Ipratropium/Albuterol Sulfate [Combivent Respimat Inhaler] 1 puff INHALATION RT- Q4H PRN 07/21/16 Levothyroxine Sodium [Synthroid] 112 mcg PO DAILY 07/21/16 Apixaban [Eliquis] 5 mg PO BID 05/05/22 Cholecalciferol [Vitamin D3 (25 Mcg = 1000 Iu)] 2,000 units PO DAILY 05/05/22 Fluticasone/Umeclidin/Vilanter [Trelegy Ellipta 100-62.5-25] 1 inhalation INHALATION DAILY 05/05/22 Furosemide [Lasix] 40 mg PO BID 05/05/22 Ipratropium/Albuter 20-100Mcg [Combivent Respimat 20-100Mcg Inhaler] 1 puff INHALATION DAILY PRN 05/05/22 Metoprolol Succinate [Toprol XL] 100 mg PO DAILY 05/05/22 Multivit-Min/Iron/Folic/Lutein [Centrum Silver Women Tablet] 1 tab PO DAILY 09/26/24 Potassium (Unk) 10 meq PO MOWEFR 09/26/24 predniSONE 10 mg PO DAILY 09/26/24 Cyclobenzaprine [Flexeril] 10 mg PO HS PRN 30 Days #30 tab 03/22/25 HYDROcodone/APAP 10-325MG [[place] 10-325] 1 tab PO QID PRN 30 Days #120 tab 0 03/22/25 HYDROcodone/APAP 10-325MG [[place] 10-325] 1 tab PO QID PRN 30 Days #120 tab 03/22/25 Controlled Substance Measures - Controlled Substance Measures Is patient prescribed a controlled substance at discharge?: Yes When asked, does pt state using other controlled substances?: No If prescribed controlled substance>3 days was MAPS reviewed?: Yes
== END ==
LOC: PNWHC3 12:22
PROVIDERS: ATTEND Specialist
DX: M47.26 Other spondylosis with radiculopathy, lumbar region (principal); G89.29 Other chronic pain
CPT/HCPCS: 99211

== ENCOUNTER 2025-04-29 19:25 | Inpatient (IN) | payer MEDICARE ==
--- NOTE | 2025-04-29 19:27 | ED ---
SOB HPI - General Stated Complaint: SOB YAEL Time Seen by Provider: 04/29/25 19:26 Source: RN notes reviewed, old records reviewed Mode of arrival: EMS Limitations: altered mental status, physical limitation - History of Present Illness Initial Comments: This is a 79-year-old female to ER for multiple complaints dyspnea right shoulder pain right elbow pain back pain abdominal pain although patient did just have a bowel movement. Dehydration weakness and fatigue throughout the course of the day symptoms began when she woke this morning persisted throughout the day that she called neighbors to call EMS to bring her to the hospital. MD Complaint: shortness of breath, cough, anxiety -: days(s) Radiation: back Severity: moderate Severity scale (1-10): 7 Consistency: constant Improves With: nothing Worsens With: nothing Known History Of: COPD, asthma, congestive heart failure Context: recent URI, recent illness Associated Symptoms: denies other symptoms Treatments Prior to Arrival: none - Related Data Home Medications Medication Instructions Recorded Confirmed Aspirin [Adult Low Dose Aspirin EC] 81 mg PO DAILY 07/21/16 04/30/25 Ipratropium/Albuterol Sulfate 1 puff INHALATION RT-QID PRN 07/21/16 04/30/25 [Combivent Respimat Inhaler] Apixaban [Eliquis] 5 mg PO BID 05/05/22 04/30/25 Furosemide [Lasix] 20 mg PO BID 05/05/22 04/30/25 Multivit-Min/Iron/Folic/Lutein 1 tab PO DAILY 09/26/24 04/30/25 [Centrum Silver Women Tablet] predniSONE 10 mg PO DAILY 09/26/24 04/30/25 Biotin 5,000 mcg PO DAILY 04/30/25 04/30/25 Cholecalciferol (Vitamin D3) 50 mcg PO DAILY 04/30/25 04/30/25 [Vitamin D3 (50 Mcg = 2000 Iu)] Fluticasone/Umeclidin/Vilanter 1 puff INHALATION RT-DAILY 04/30/25 04/30/25 [Trelegy Ellipta 200-62.5-25] Ipratropium-Albuterol Nebulize 3 ml INHALATION RT-QID 04/30/25 04/30/25 [Duoneb 0.5 mg-3 mg/3 ml Soln] Potassium Chloride ER [K-Dur 10] 10 meq PO MOWEFR 04/30/25 04/30/25 guaiFENesin-DM 100-10MG/5ML 20 ml PO QID PRN 04/30/25 04/30/25 [Robitussin DM] Previous Rx's Medication Instructions Recorded Cyclobenzaprine [Flexeril] 10 mg PO HS PRN 30 Days #30 tab 03/22/25 Atorvastatin [Lipitor] 40 mg PO HS tab 05/05/25 Cephalexin [Keflex] 500 mg PO QID #28 cap 05/05/25 HYDROcodone/APAP 10-325MG [[place] 1 tab PO QID PRN 3 Days #12 tab 05/05/25 10-325] Levothyroxine Sodium [Synthroid] 100 mcg PO DAILY@0630 tab 05/05/25 Melatonin 3 mg PO HS PRN tab 05/05/25 Metoprolol Succinate (ER) [Toprol 50 mg PO BID tab 05/05/25 XL] Pantoprazole [Protonix] 40 mg PO AC-BRKFST tab 05/05/25 polyethylene glycoL 3350 [Miralax] 17 gm PO DAILY packet 05/05/25 predniSONE See Taper PO DIRECTED 12 Days 05/05/25 #30 tab Allergies Allergy/AdvReac Type Severity Reaction Status Date / Time metolazone AdvReac "negative Verified 04/30/25 09:22 reaction" Review of Systems ROS Statement: Those systems with pertinent positive or pertinent negative responses have been documented in the HPI. ROS Other: All systems not noted in ROS Statement are negative. 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 some type of infection in lungs that won't clear up History of Any Multi-Drug Resistant Organisms: None Reported Past Surgical History: Joint Replacement, Orthopedic Surgery, Tonsillectomy Additional Past Surgical History / Comment(s): RT SHOULDER SX rt shoulder replaced and corey knee replacement,. COLONOSCOPY. BILAT CATARACTS REMOVED WITH LENS IMPLANTS Past Anesthesia/Blood Transfusion Reactions: No Reported Reaction Past Psychological History: No Psychological Hx Reported Smoking Status: Former smoker Past Alcohol Use History: None Reported Additional Past Alcohol Use History / Comment(s): QUIT SMOKING 1999 Past Drug Use History: None Reported - Past Family History Mother Family Medical History: Cancer Sister(s) Family Medical History: Cancer General Exam General appearance: alert, in no apparent distress, anxious Head exam: Present: atraumatic, normocephalic, normal inspection Eye exam: Present: normal appearance, PERRL, EOMI. Absent: scleral icterus, conjunctival injection, periorbital swelling ENT exam: Present: normal exam, mucous membranes moist Neck exam: Present: normal inspection. Absent: tenderness, meningismus, lymphadenopathy Respiratory exam: Present: normal lung sounds bilaterally. Absent: respiratory distress, wheezes, rales, rhonchi, stridor Cardiovascular Exam: Present: tachycardia, irregular rhythm, normal heart sounds. Absent: systolic murmur, diastolic murmur, rubs, gallop, clicks GI/Abdominal exam: Present: soft, normal bowel sounds. Absent: distended, tenderness, guarding, rebound, rigid Extremities exam: Present: normal inspection, full ROM, normal capillary refill. Absent: tenderness, pedal edema, joint swelling, calf tenderness Back exam: Present: normal inspection Neurological exam: Present: alert, oriented X3, CN II-XII intact Psychiatric exam: Present: normal affect, normal mood Skin exam: Present: warm, dry, intact, normal color. Absent: rash Course Vital Signs 04/29/25 04/29/25 04/29/25 19:30 19:40 19:52 Temperature 99.6 F Pulse Rate 146 H 148 H 87 Pulse Rate [ 143 H Literary Writer ] Respiratory 24 20 23 Rate Blood Pressure 88/63 104/66 86/50 O2 Sat by Pulse 98 98 Oximetry 04/29/25 04/29/25 04/29/25 20:02 20:19 20:39 Temperature Pulse Rate 115 H 126 H 129 H Pulse Rate [ Literary Writer ] Respiratory 23 20 Rate Blood Pressure 98/58 112/59 O2 Sat by Pulse 97 97 Oximetry 04/29/25 04/29/25 04/29/25 20:45 20:52 22:00 Temperature 98.0 F Pulse Rate 124 H 133 H 128 H Pulse Rate [ Literary Writer ] Respiratory 20 22 Rate Blood Pressure 106/75 111/56 O2 Sat by Pulse 98 98 Oximetry 0604/30/25 04/30/25 23:00 00:00 00:48 Temperature 97.1 F L Pulse Rate 124 H 115 H 109 H Pulse Rate [ Literary Writer ] Respiratory 23 23 20 Rate Blood Pressure 88/58 91/45 101/52 O2 Sat by Pulse 97 98 99 Oximetry 04/30/25 04/30/25 04/30/25 00:50 01:00 01:53 Temperature Pulse Rate 106 H 108 H 103 H Pulse Rate [ Literary Writer ] Respiratory 24 24 18 Rate Blood Pressure 101/52 101/52 96/37 O2 Sat by Pulse 99 99 100 Oximetry 04/30/25 04/30/25 04/30/25 02:01 02:36 04:15 Temperature 97.3 F L Pulse Rate 102 H 100 91 Pulse Rate [ Literary Writer ] Respiratory 23 23 15 Rate Blood Pressure 96/37 102/49 97/56 O2 Sat by Pulse 100 100 100 Oximetry 04/30/25 04/30/25 04/30/25 04:37 04:41 05:21 Temperature Pulse Rate 101 H 87 Pulse Rate [ 91 Literary Writer ] Respiratory 26 H 28 H 22 Rate Blood Pressure 107/79 105/61 O2 Sat by Pulse 100 Oximetry 04/30/25 04/30/25 04/30/25 07:02 08:00 08:15 Temperature 97.6 F Pulse Rate 80 75 86 Pulse Rate [ Literary Writer ] Respiratory 18 24 Rate Blood Pressure 96/53 113/53 O2 Sat by Pulse 100 100 Oximetry 04/30/25 04/30/25 04/30/25 09:00 10:00 11:00 Temperature 97.7 F Pulse Rate 79 81 86 Pulse Rate [ Literary Writer ] Respiratory 24 24 22 Rate Blood Pressure 100/58 110/53 107/54 O2 Sat by Pulse 100 99 99 Oximetry 04/30/25 04/30/25 04/30/25 11:15 11:24 12:00 Temperature Pulse Rate 83 84 86 Pulse Rate [ Literary Writer ] Respiratory 19 Rate Blood Pressure 96/83 O2 Sat by Pulse 99 Oximetry 04/30/25 04/30/25 13:00 14:00 Temperature Pulse Rate 85 88 Pulse Rate [ Literary Writer ] Respiratory 22 21 Rate Blood Pressure 110/76 102/60 O2 Sat by Pulse 100 99 Oximetry - Reevaluation(s) Reevaluation #1: 04/29/25 21:51 Medical records reviewed Reevaluation #2: 04/29/25 21:53 Patient symptoms mildly improving throughout ER stay Reevaluation #3: 04/29/25 21:53 Patient informed of results and questions answered Reevaluation #4: Was pt. sent in by a medical professional or institution (, [facility], [facility], urgent care, hospital, or correction...) When possible be specific @ -no Did you speak to anyone other than the patient for history (EMS, parent, family, police, friend...)? What history was obtained from this source @ -no Did you review nursing and triage notes (agree or disagree)? Why? @ -agree Are old charts reviewed (outside hosp., previous admission, EMS record, old EKG, old radiological studies, urgent care reports/EKG's, correction records)? Report findings @ -yes Differential Diagnosis (chest pain, altered mental status, abdominal pain women, abdominal pain men, vaginal bleeding, weakness, fever, dyspnea, syncope, headache, dizziness, GI bleed, back pain, seizure, CVA, palpatations, mental health, musculoskeletal)? @ -prior EKG interpreted by me (3pts min.). @ -yes X-rays interpreted by me (1pt min.). @ -yes positive for pneumonia CT interpreted by me (1pt min.). @ -yes negative for acute disease U/S interpreted by me (1pt. min.). @ -no What testing was considered but not performed or refused? (CT, X-rays, U/S, labs)? Why? @ -none What meds were considered but not given or refused? Why? @ -none Did you discuss the management of the patient with other professionals (professionals i.e. VIMAL Tracey, [facility], lab, RT, psych nurse, social staff worker, security compliance specialist, teacher, fire information officer, upper caser)? Give summary @ -no Was smoking cessation discussed for >3mins.? @ -no Was critical care preformed (if so, how long)? @ -no Were there social determinants of health that impacted care today? How? (Homelessness, low income, unemployed, alcoholism, drug addiction, transportation, low edu. Level, literacy, decrease access to med. care, fpc, rehab)? @ -none Was there de-escalation of care discussed even if they declined (Discuss DNR or withdrawal of care, Hospice)? DNR status @ -no What co-morbidities impacted this encounter? (DM, HTN, Smoking, COPD, CAD, Cancer, CVA, ARF, Chemo, Hep., AIDS, mental health diagnosis, sleep apnea, morbid obesity)? @ -none Was patient admitted / discharged? Hospital course, mention meds given and route, prescriptions, significant lab abnormalities, going to OR and other pertinent info. @ - 79 female to the ER for evaluation patient presents today for evaluation of shortness of breath weakness is found to have significant cellulitis right arm cellulitis back severe COPD likely pneumonia fever elevated white blood cell count weakness. Patient admit for IV antibiotics Admitted Undiagnosed new problem with uncertain prognosis? @ -no Drug Therapy requiring intensive monitoring for toxicity (Heparin, Nitro, Insulin, Cardizem)? @ -no Were any procedures done? @ -no Diagnosis/symptom? @ -Sepsis, cellulitis, pneumonia Acute, or Chronic, or Acute on Chronic? @ -Acute Uncomplicated (without systemic symptoms) or Complicated (systemic symptoms)? @ -Complicated Side effects of treatment? @ -no Exacerbation, Progression, or Severe Exacerbation? @ -exacerbation Poses a threat to life or bodily function? How? (Chest pain, [place], [place], pneumonia, PE, COPD, DKA, ARF, appy, cholecystitis, CVA, Diverticulitis, Homicidal, Suicidal, threat to staff... and all critical care pts) @ -yes extremes of age Reevaluation #5: Differential Dyspnea: Coronary syndrome, arrhythmia, tamponade, asthma, COPD, pulmonary embolism, pneumonia, pneumothorax, pulmonary effusion, anaphylaxis, diabetic ketoacidosis, flailed chest, pulmonary contusion, diaphragmatic rupture, anemia, neuromuscular, this is not meant to be an all-inclusive list. - Consultations Consultation #1: Spoke with sound who agrees to admit this patient Procedures - Sepsis Sepsis Focused Exam #1 Time Sepsis Criteria Met: 23:30 Sepsis Focused Exam Date: 04/29/25 Sepsis Focused Exam Time: 03:00 Sepsis Focused Exam Complete: Yes Vital Signs & RN Notes Reviewed: Yes Capillary Refill: < 2 Seconds: Fingers, Toes Peripheral Pulses: Normal: Radial (R), Radial (L), Posterior Tibialis (R), Posterior Tibialis (L), Dorsalis Pedis (R), Dorsalis Pedis (L) Skin Color: Normal for Patient Respiratory Exam: normal lung sounds Cardiovascular Exam: tachycardia Medical Decision Making - Medical Decision Making 79 female to the ER for evaluation patient presents today for evaluation of shortness of breath weakness is found to have significant cellulitis right arm cellulitis back severe COPD likely pneumonia fever elevated white blood cell count weakness. Patient admit for IV antibiotics - Lab Data Result diagrams: 05/04/25 06:41 05/04/25 06:41 Lab Results 04/29/25 04/29/25 04/29/25 Range/Units 19:36 19:36 20:40 WBC 35.79 H (4.50-10.00) 10*3/uL RBC 4.86 (4.10-5.20) 10*6/uL Hgb 16.6 H (12.0-15.0) g/dL Hct 50.2 H (37.2-46.3) % MCV 103.3 H (80.0-97.0) fL MCH 34.2 H (27.0-32.0) pg MCHC 33.1 (32.0-37.0) g/dL Plt Count 177 (140-440) 10*3/uL MPV 12.8 H (9.5-12.2) fL Immature Gran % (Auto) 1.3 % Neutrophils % 88.5 % Lymphocytes % 4.2 % Monocytes % 5.4 % Eosinophils % 0.1 % Basophils % 0.5 % Immature Gran # 0.45 H (0.00-0.04) 10*3/uL Neutrophils # 31.65 H (1.80-7.70) 10*3/uL Lymphocytes # 1.52 (0.90-5.00) 10*3/uL Monocytes # 1.94 H (0.20-1.00) 10*3/uL Eosinophils # 0.04 (0.04-0.35) 10*3/uL Basophils # 0.19 H (0.00-0.10) 10*3/uL Sodium (137-145) mmol/L Potassium (3.5-5.1) mmol/L Chloride (98-107) mmol/L Carbon Dioxide (22-30) mmol/L Anion Gap mmol/L BUN (7-17) mg/dL Creatinine (0.52-1.04) mg/dL Est GFR (CKD-EPI)AfAm (>60 ml/min/1.73 sqM) Est GFR (CKD-EPI)NonAf (>60 ml/min/1.73 sqM) Glucose (74-99) mg/dL Lactic Ac Sepsis Rflx Plasma Lactic Acid Bart 3.7 H* (0.7-2.0) mmol/L Calcium (8.4-10.2) mg/dL Magnesium (1.6-2.3) mg/dL Total Bilirubin (0.2-1.3) mg/dL AST (14-36) U/L ALT (4-34) U/L Alkaline Phosphatase (38-126) U/L Troponin I <0.012 (0.000-0.034) ng/mL NT-Pro-B Natriuret Pep pg/mL Total Protein (6.3-8.2) g/dL Albumin (3.5-5.0) g/dL TSH (0.465-4.680) mIU/L Free T4 (0.78-2.19) ng/dL 04/29/25 04/29/25 04/29/25 Range/Units 20:40 20:40 20:47 WBC (4.50-10.00) 10*3/uL RBC (4.10-5.20) 10*6/uL Hgb (12.0-15.0) g/dL Hct (37.2-46.3) % MCV (80.0-97.0) fL MCH (27.0-32.0) pg MCHC (32.0-37.0) g/dL Plt Count (140-440) 10*3/uL MPV (9.5-12.2) fL Immature Gran % (Auto) % Neutrophils % % Lymphocytes % % Monocytes % % Eosinophils % % Basophils % % Immature Gran # (0.00-0.04) 10*3/uL Neutrophils # (1.80-7.70) 10*3/uL Lymphocytes # (0.90-5.00) 10*3/uL Monocytes # (0.20-1.00) 10*3/uL Eosinophils # (0.04-0.35) 10*3/uL Basophils # (0.00-0.10) 10*3/uL Sodium 136 L (137-145) mmol/L Potassium 4.6 (3.5-5.1) mmol/L Chloride 103 (98-107) mmol/L Carbon Dioxide 24 (22-30) mmol/L Anion Gap 9 mmol/L BUN 25 H (7-17) mg/dL Creatinine 0.95 (0.52-1.04) mg/dL Est GFR (CKD-EPI)AfAm 65 (>60 ml/min/1.73 sqM) Est GFR (CKD-EPI)NonAf 57 (>60 ml/min/1.73 sqM) Glucose 97 (74-99) mg/dL Lactic Ac Sepsis Rflx Y Plasma Lactic Acid Bart (0.7-2.0) mmol/L Calcium 10.4 H (8.4-10.2) mg/dL Magnesium 2.1 (1.6-2.3) mg/dL Total Bilirubin 1.5 H (0.2-1.3) mg/dL AST 31 (14-36) U/L ALT 21 (4-34) U/L Alkaline Phosphatase 79 (38-126) U/L Troponin I (0.000-0.034) ng/mL NT-Pro-B Natriuret Pep 926 pg/mL Total Protein 6.6 (6.3-8.2) g/dL Albumin 4.0 (3.5-5.0) g/dL TSH 0.453 L (0.465-4.680) mIU/L Free T4 1.98 (0.78-2.19) ng/dL - EKG Data -: EKG Interpreted by Me (EKG is a flutter 146 QRS 128 QTc 77 QTc 362) - Radiology Data Radiology results: report reviewed (Chest x-ray positive for pneumonia and CT abdomen pelvis negative for acute disease), image reviewed Critical Care Time Critical Care Time: Yes Total Critical Care Time: 31 Disposition Clinical Impression: Acute exacerbation of chronic obstructive pulmonary disease, Community acquired pneumonia, Tracheobronchitis, Cellulitis, Atrial fibrillation with RVR, Sepsis, Right arm cellulitis Disposition: ADMITTED IP TO THIS HOSP Condition: Stable Is patient prescribed a controlled substance at d/c from ED?: No Time of Disposition: 22:00
[2025-04-29] MEDS: DILTIAZEM 5 MG/ML 5 ML VIAL IVP STA ×2 (19:45→22:25)
[2025-04-29 19:50] LABS: Basophils # (A) 0.19 10*3/uL (0.00-0.10); Basophils % (A) 0.5 %; Eosinophils # (A) 0.04 10*3/uL (0.04-0.35); Eosinophils % (A) 0.1 %; HCT 50.2 % (37.2-46.3); HGB 16.6 g/dL (12.0-15.0); Lymphocytes # (A) 1.52 10*3/uL (0.90-5.00); Lymphocytes % (A) 4.2 %; MCH 34.2 pg (27.0-32.0); MCHC 33.1 g/dL (32.0-37.0); MCV 103.3 fL (80.0-97.0); Mean Platelet Volume 12.8 fL (9.5-12.2); Monocytes # (A) 1.94 10*3/uL (0.20-1.00); Monocytes % (A) 5.4 %; Neutrophils # (A) 31.65 10*3/uL (1.80-7.70); Neutrophils % (A) 88.5 %; Platelet Count 177 10*3/uL (140-440); RBC 4.86 10*6/uL (4.10-5.20); RDW 13.6 % (11.5-14.5); WBC 35.79 10*3/uL (4.50-10.00)
[2025-04-29] MEDS: IPRATROPIUM-ALBUTEROL 3 ML NEB INHALATION STA ×2 (19:55→22:07)
[2025-04-29] MEDS: DILTIAZEM 125 MG in DEXTROSE 5% IN WATER 100 ML IV SCH (19:56)
[2025-04-29 21:13] LABS: ALT 21 U/L (4-34); AST 31 U/L (14-36); African American GFR (CKD) 65 (>60 ml/min/1.73 sqM); Alkaline Phosphatase 79 U/L (38-126); Anion Gap 9 mmol/L; Blood Urea Nitrogen 25 mg/dL (7-17); Calcium 10.4 mg/dL (8.4-10.2); Carbon Dioxide 24 mmol/L (22-30); Chloride 103 mmol/L (98-107); Glucose 97 mg/dL (74-99); Magnesium 2.1 mg/dL (1.6-2.3); Non-African American GFR(CKD) 57 (>60 ml/min/1.73 sqM); Sodium 136 mmol/L (137-145); Total Bilirubin 1.5 mg/dL (0.2-1.3); Total Protein 6.6 g/dL (6.3-8.2)
[2025-04-29 21:21] LABS: NT-Pro-B-Type Natriuretic Pept 926 pg/mL
[2025-04-29] MEDS: AZITHROMYCIN 500 MG in SODIUM CHLORIDE 0.9% 250 ML IVPB STA (21:25)
[2025-04-29 21:46] LABS: Potassium 4.6 mmol/L (3.5-5.1)
[2025-04-29] MEDS ORDERED: PNEUMONIA PROTOCOL UTILIZED 1 EACH MISC PO PRN (21:49)
--- NOTE | 2025-04-29 22:35 | XR ---
EXAMINATION TYPE: XR chest 2V DATE OF EXAM: 04/29/2025 9:02 PM COMPARISON: None. CLINICAL INDICATION: Female, 79 years old with history of difficulty breathing, TECHNIQUE: XR chest 2V view(s) obtained. FINDINGS: The heart size is normal. The pulmonary vasculature is normal. There is partial silhouetting left diaphragm. A mild posterior right lower lobe infiltrate may be pre sent. Correlate for atelectasis. Follow-up can be performed. IMPRESSION: 1. Mild bibasilar infiltrates. Follow-up recommended [facility], , 04/29/2025 10:33 PM
--- NOTE | 2025-04-29 22:38 | CT ---
EXAMINATION TYPE: CT abdomen pelvis wo con DATE OF EXAM: 04/29/2025 9:16 PM COMPARISON: None. CLINICAL INDICATION: Female, 79 years old with history of pain, abdominal pain TECHNIQUE: Axial images were obtained from above the diaphragm to the pubic rami in the axial plane a t 5 mm thick sections. Reconstructed images are reviewed on the computer in the coronal plane. CONTRAST: mL of . Study performed without Oral Contrast DLP: 1317.5 mGycm, Automated exposure control for dose reduction was used. FINDINGS: Limited CT sections are obtained the lung bases. The lung bases are clear. CT ABDOMEN: Liver: Normal Spleen: Normal Pancreas: Normal Adrenal glands: The adrenal glands are normal. Gallbladder: Normal Kidneys: No masses are evident. No hydronephrosis is present. No cysts are present. No renal stone s are evident. Aorta: Vascular calcification is within the aorta. Inferior vena cava: Normal. CT PELVIS: Loops of bowel within the abdomen and pelvis are normal. Fecal debris is distal colon. Fecal boluse s at the rectum. Correlate for impaction There are loops of bowel which are incompletely distended o r lack oral contrast limiting their evaluation. Appendix: Normal as visualized. Urinary bladder: Normal. Genitourinary structures: Osseous structures: No suspicious lytic or sclerotic lesions. Degenerative disc changes are within darien mbar spine. Facet hypertrophy is present. Sacroiliac joint vacuum phenomenon is present IMPRESSION: 1. Moderate fecal retention with fecal bolus in the rectum. Correlate for impaction [facility], , 04/29/2025 10:36 PM
[2025-04-29] MEDS: NA PHOS,M-B/NA PHOS,DI-BA 133 ML ENEMA RECTAL STA (22:53)
[2025-04-29] MEDS: SODIUM CHLORIDE 0.9% 500 ML 500 ML IV ONE (23:18)
[2025-04-29] MEDS ORDERED: VANCOMYCIN IV PER PHARMACY 1 EACH MISC MISCELLANE PRN (23:29)
[2025-04-29] MEDS ORDERED: NALOXONE 0.4 MG/ML 1 ML VIAL IV PRN (23:32)
[2025-04-29] MEDS ORDERED: ENOXAPARIN 40 MG/0.4 ML SYRINGE SQ SCH (23:45)
--- NOTE | 2025-04-30 00:02 | P.HPIM ---
History of Present Illness H&P Date: 04/29/25 Chief Complaint: Multiple complaints including shortness of breath This is an 79-year-old female patient with a past medical history including chronic hypoxic respiratory failure and she is supposed to be on 2 L nasal cannula oxygen but she is not using her oxygen, emphysema, diastolic heart failure, history of DVT/PE and currently on Eliquis 5 mg twice daily and spinal stenosis who presents to the ED with multiple complaints. Patient reports that she lives by herself and no one takes care of her. She presents today complaining of dyspnea and had to use her oxygen as she is desatting. She does complain of right shoulder pain and right upper extremity increased redness and erythema. She does report that she has very dry skin. She has not been able to eat and drink today. She did not take her medications as well. She reports feeling very weak and unable to ambulate. She usually uses her walker to ambulate. Patient reports that she had to call her neighbors to call EMS to bring her to the hospital. She does report recent upper respiratory tract infection including sneezing, runny nose and coughing. No fevers or chills. No genitourinary symptoms. She reports that her last bowel movement was a few days ago. Upon arrival to the ED, patient was tachycardic with a heart rate of 126, respiratory rate of 20. Her blood pressure was stable. 3 L nasal cannula oxygen were started. Labs done showing a WBC of 35.7, sodium 136, BUN of 25, potassium of 4.6, creatinine within normal limits, plasma lactic acid of 3.7 and repeat lactate of 5.2 ., Total bilirubin of 1.5, proBNP of 900, initial troponin was not elevated . Chest x-ray was done showing mild bibasilar infiltrate. CT of the abdomen and pelvis without contrast was done showing moderate fecal impaction . EKG was done showing A-fib with RVR and it is acute onset. Patient was started on Cardizem drip but her blood pressure dropped . Patient will be switched to amiodarone drip . Pulmonology, infectious disease and cardiology will be consulted. Patient will be admitted to cardiac stepdown Past medical history : Chronic hypoxic respiratory failure, emphysema, chronic diastolic heart failure, history of DVT/PE, essential hypertension, polymyalgia rheumatica, vitamin D deficiency Past surgical history : Right shoulder surgery, bilateral knee replacement, bilateral cataract removed with lens implants Social history : Former tobacco use, no alcohol use and no recreational drug use Review of system : Positive for shortness of breath, weakness, abdominal pain, right shoulder pain, right upper extremity tenderness and erythema Physical exam General: Ill looking Derm: warm, dry, intact Head: atraumatic, normocephalic, symmetric Eyes: EOMI, anicteric sclera Mouth: no lip lesion, mucus membranes moist Cardiovascular: S1 S2 reg, no murmur, rubs, or gallops. Irregular irregular rhythm Lungs: Tachypneic, bilateral expiratory wheezing Abdominal: soft, distended , non-tender to palpataion, no appreciable organomegaly Extremities: Right upper extremity erythema. Bilateral lower extremity +1 edema Neuro: Alert, Oriented, CNII-XII grossly intact, gait normal Psych: well appearing, appropriate affect Assessment and plan : -Severe sepsis (leukocytosis, tachycardia with elevated lactate) due to community-acquired pneumonia/lactic acidosis due to sepsis: WBC of 35.7. Initial lactate of 30.7 and repeat lactate of 5.2 Treated initially with Rocephin and azithromycin and will continue with cefepime and vancomycin MRSA colonization screening 2 sets of blood culture Consult infectious disease Continue with IV fluid hydration and repeat lactate Pending sputum culture and complete respiratory panel Urine Legionella and pneumococcus . IgM mycoplasma pneumonia No reports of diarrhea to suggest C. difficile infection (has significant leukocytosis of 35) -Acute onset A-fib with RVR : Treated initially with Cardizem drip but patient became hypotensive Discontinue Cardizem drip will start patient on amiodarone drip Will order TSH and echocardiogram Consult cardiology Likely reactive to acute illness Joe VaSc score of 5 >> continue with oral Eliquis (she takes Eliquis due to history of DVT/PE) -Right upper extremity cellulitis/erysipelas : Continue with broad-spectrum antibiotic -Acute on chronic hypoxic and hypercapnic respiratory failure due to sepsis and pneumonia/COPD exacerbation : Physical exam remarkable for bilateral expiratory wheezing Scheduled DuoNebs, IV Solu-Medrol and Pulmicort twice daily [employer]inder consulted Will order ABG -Chronic diastolic heart failure, not in exacerbation: Patient is currently euvolemic Continue with IV fluid hydration and monitor urine output Will hold off Lasix for now No signs of pulmonary edema on chest x-ray -History of DVT/PE : Continue with oral Eliquis 5 mg twice daily -Fecal impaction : Will order enema and oral lactulose CODE STATUS is full code DVT prophylaxis on oral Eliquis Disposition : Patient will need physical therapy evaluation and likely will bene fit from placement Patient will be admitted as inpatient for at least 2 midnight hospitalization. 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 some type of infection in lungs that won't clear up History of Any Multi-Drug Resistant Organisms: None Reported Past Surgical History: Joint Replacement, Orthopedic Surgery, Tonsillectomy Additional Past Surgical History / Comment(s): RT SHOULDER SX rt shoulder replaced and corey knee replacement,. COLONOSCOPY. BILAT CATARACTS REMOVED WITH LENS IMPLANTS Past Anesthesia/Blood Transfusion Reactions: No Reported Reaction Past Psychological History: No Psychological Hx Reported Smoking Status: Former smoker Past Alcohol Use History: None Reported Additional Past Alcohol Use History / Comment(s): QUIT SMOKING 1999 Past Drug Use History: None Reported - Past Family History Mother Family Medical History: Cancer Sister(s) Family Medical History: Cancer Medications and Allergies Home Medications Medication Instructions Recorded Confirmed Type Aspirin [Adult Low Dose Aspirin EC] 81 mg PO DAILY 07/21/16 09/28/24 History Ipratropium/Albuterol Sulfate 1 puff INHALATION RT-Q4H PRN 07/21/16 09/28/24 History [Combivent Respimat Inhaler] Levothyroxine Sodium [Synthroid] 112 mcg PO DAILY 07/21/16 09/28/24 History Apixaban [Eliquis] 5 mg PO BID 05/05/22 09/28/24 History Cholecalciferol [Vitamin D3 (25 2,000 units PO DAILY 05/05/22 09/28/24 History Mcg = 1000 Iu)] Fluticasone/Umeclidin/Vilanter 1 inhalation INHALATION DAILY 05/05/22 09/28/24 History [Trelegy Ellipta 100-62.5-25] Furosemide [Lasix] 40 mg PO BID 05/05/22 09/28/24 History Ipratropium/Albuter 20-100Mcg 1 puff INHALATION DAILY PRN 05/05/22 09/28/24 History [Combivent Respimat 20-100Mcg Inhaler] Metoprolol Succinate [Toprol XL] 100 mg PO DAILY 05/05/22 09/28/24 History Multivit-Min/Iron/Folic/Lutein 1 tab PO DAILY 09/26/24 09/28/24 History [Centrum Silver Women Tablet] Potassium (Unk) 10 meq PO MOWEFR 09/26/24 09/28/24 History predniSONE 10 mg PO DAILY 09/26/24 09/28/24 History Cyclobenzaprine [Flexeril] 10 mg PO HS PRN 30 Days #30 tab 03/22/25 Rx HYDROcodone/APAP 10-325MG [[place] 1 tab PO QID PRN 30 Days #120 tab 03/22/25 Rx 10-325] HYDROcodone/APAP 10-325MG [[place] 1 tab PO QID PRN 30 Days #120 tab 03/22/25 Rx 10-325] Allergies Allergy/AdvReac Type Severity Reaction Status Date / Time No Known Allergies Allergy Verified 09/28/24 12:42 Physical Exam Vitals: Vital Signs Temp Pulse Resp BP Pulse Ox 04/29/25 22:00 128 H 22 111/56 98 04/29/25 20:52 98.0 F 133 H 20 106/75 98 04/29/25 20:45 124 H 04/29/25 20:39 129 H 04/29/25 20:19 126 H 20 112/59 97 04/29/25 20:02 115 H 23 98/58 97 04/29/25 19:52 87 23 86/50 98 04/29/25 19:40 148 H 20 104/66 98 04/29/25 19:30 99.6 F 146 H 25 H 88/63 Intake and Output 04/29/25 04/29/25 04/30/25 14:59 22:59 06:59 Other: Weight 99.79 kg Results CBC & Chem 7: 04/29/25 19:36 04/29/25 20:40 Labs: Abnormal Lab Results - Last 24 Hours (Table) 04/29/25 04/29/25 04/29/25 Range/Units 19:36 19:36 20:40 WBC 35.79 H (4.50-10.00) 10*3/uL Hgb 16.6 H (12.0-15.0) g/dL Hct 50.2 H (37.2-46.3) % MCV 103.3 H (80.0-97.0) fL MCH 34.2 H (27.0-32.0) pg MPV 12.8 H (9.5-12.2) fL Immature Gran # 0.45 H (0.00-0.04) 10*3/uL Neutrophils # 31.65 H (1.80-7.70) 10*3/uL Monocytes # 1.94 H (0.20-1.00) 10*3/uL Basophils # 0.19 H (0.00-0.10) 10*3/uL Sodium 136 L (137-145) mmol/L BUN 25 H (7-17) mg/dL Plasma Lactic Acid Bart 3.7 H* (0.7-2.0) mmol/L Calcium 10.4 H (8.4-10.2) mg/dL Total Bilirubin 1.5 H (0.2-1.3) mg/dL
[2025-04-30] MEDS: SODIUM CHLORIDE 0.9% 500 ML 250 ML IV ONE (00:11)
[2025-04-30] MEDS: SODIUM CHLORIDE 0.9% 1,000 ML IV SCH (00:11)
[2025-04-30] MEDS: DEXTROSE 5% IN WATER 100 ML with AMIODARONE 150 MG IV ONE (00:19)
[2025-04-30] MEDS: AMIODARONE 360 MG in DEXTROSE 5% IN WATER 200 ML IV ONE (00:28)
[2025-04-30] MEDS: LACTULOSE 20 GM/30 ML CUP PO SCH (00:33)
[2025-04-30] MEDS: APIXABAN 5 MG TAB PO SCH (00:33)
[2025-04-30] MEDS: methylPREDNISolone SOD SUCCI 40 MG/ML 1 ML VIAL IV SCH (00:35)
[2025-04-30] MEDS: CEFEPIME 2 GM in SODIUM CHLORIDE 0.9% 100 ML IVPB SCH ×2 (00:40→11:56)
[2025-04-30 01:06] LABS: ABG Base Excess 0.4 mmol/L; ABG HCO3 25 mmol/L (21-25); ABG PCO2 38 mmHg (35-45); ABG PH 7.42 (7.35-7.45); ABG TCO2 26 mmol/L (19-24); Allen Test Performed? Yes
[2025-04-30 01:11] LABS: T4, Free (Free Thyroxine) 1.98 ng/dL (0.78-2.19)
[2025-04-30] MEDS ORDERED: IPRATROPIUM-ALBUTEROL 3 ML NEB INHALATION PRN (01:15)
[2025-04-30 01:16] LABS: ABG PO2 57 mmHg (83-108)
[2025-04-30] MEDS: VANCOMYCIN 2,000 MG in SODIUM CHLORIDE 0.9% 500 ML 500 ML IVPB ONE (01:50)
[2025-04-30 02:22] LABS: HCT 43.8 % (37.2-46.3); HGB 14.5 g/dL (12.0-15.0); MCH 34.4 pg (27.0-32.0); MCHC 33.1 g/dL (32.0-37.0); MCV 103.8 fL (80.0-97.0); Platelet Count 215 10*3/uL (140-440); RBC 4.22 10*6/uL (4.10-5.20); RDW 13.2 % (11.5-14.5)
[2025-04-30 02:33] LABS: ALT 17 U/L (4-34); AST 20 U/L (14-36); African American GFR (CKD) 57 (>60 ml/min/1.73 sqM); Albumin 3.2 g/dL (3.5-5.0); Alkaline Phosphatase 79 U/L (38-126); Anion Gap 9 mmol/L; Blood Urea Nitrogen 26 mg/dL (7-17); Calcium 9.7 mg/dL (8.4-10.2); Carbon Dioxide 23 mmol/L (22-30); Chloride 104 mmol/L (98-107); Glucose 107 mg/dL (74-99); Non-African American GFR(CKD) 50 (>60 ml/min/1.73 sqM); Phosphorus 2.4 mg/dL (2.5-4.5); Potassium 3.9 mmol/L (3.5-5.1); Sodium 136 mmol/L (137-145); Total Bilirubin 1.5 mg/dL (0.2-1.3); Total Protein 5.4 g/dL (6.3-8.2)
[2025-04-30 03:43] LABS: Appearance,Urine Clear (Clear); Bilirubin,Urine Negative (Negative); Blood,Urine Negative (Negative); Color,Urine Yellow; Glucose,Urine (UA) Negative (Negative); Ketones,Urine Negative (Negative); Leukocyte Esterase,Urine Negative (Negative); Nitrite,Urine Negative (Negative); Protein,Urine Negative (Negative); Specific Gravity,Urine 1.023 (1.001-1.035); Urobilinogen,Urine <2.0 mg/dL (<2.0)
[2025-04-30 04:07] LABS: Band Neutrophils % 14 %; Metamyelocytes # (M) 0.43 k/uL (0); Metamyelocytes % 1 %; Neutrophils # (M) 39.92 k/uL (1.3-7.7); Neutrophils % (M) 78 %; Nucleated Red Blood Cells 0 /100 WBC (0-0); Total Cells Counted 200
[2025-04-30 04:08] LABS: Large Platelets Present
[2025-04-30 04:11] LABS: Toxic Vacuolation Present
[2025-04-30] MEDS: AMIODARONE 450 MG in DEXTROSE 5% IN WATER 250 ML IV SCH (05:33)
[2025-04-30] MEDS: IPRATROPIUM-ALBUTEROL 3 ML NEB INHALATION SCH (07:59)
[2025-04-30] MEDS: BUDESONIDE 0.5 MG/2 ML NEBU INHALATION SCH (07:59)
[2025-04-30] MEDS ORDERED: ALBUTEROL NEBULIZED 2.5 MG/3 ML INHALATION SCH (08:00)
[2025-04-30] MEDS: METOPROLOL SUCCINATE (ER) 25 MG TAB.ER.24H PO SCH (09:14)
--- NOTE | 2025-04-30 11:25 | XR ---
EXAMINATION TYPE: XR chest 1V portable DATE OF EXAM: 04/30/2025 5:37 AM COMPARISON: 04/29/2025 CLINICAL INDICATION: Female, 79 years old with history of pneumonia, TECHNIQUE: XR chest 1V portable view(s) obtained. Left diaphragm is not well visualized. FINDINGS: The heart size is normal. The pulmonary vasculature is normal. The lungs are clear. Previous infiltrates appear resolved. IMPRESSION: 1. No acute pulmonary process. [facility], , 04/30/2025 11:22 AM
--- NOTE | 2025-04-30 11:26 | P.CRDCN ---
History of Present Illness Consult date: 04/30/25 History of present illness: HISTORY OF PRESENTING ILLNESS: Patient presented to hospital because of increased worsening shortness of breath along with right upper extremity pain redness and swelling. She is admitted with the concerns of right upper extremity cellulitis, severe sepsis and acute congestive heart failure exacerbation. On admission she was also noticed to have tachycardic rhythm with concerns of atrial fibrillation. Cardiology was consulted for CHF management and rhythm abnormalities On my personal review of telemetry and EKG it appears to be sinus tachycardia rather than atrial fibrillation. Admission Labs: WBC 43 hemoglobin 14 PO257 pCO2 38 BUN 26 creatinine 1.06, lactate 2.8, TSH 0.4, free T41.98, troponin negative, NT-proBNP 926 Admission EKG: Sinus tachycardia with nonspecific ST changes Imaging: Chest x-ray does not show any signs of significant consolidation congestion. Mild increased interstitial markings seen. REVIEW OF SYSTEMS: 14 point review of system is negative except what is mentioned above in HPI. PHYSICAL EXAMINATION: Neck: Brisk carotid upstroke, no jugular venous distention. Lungs: Clear to auscultation. Heart: Regular rate and rhythm, S1-S2, , no murmur or rub. Abdomen: Soft nontender, positive bowel sounds. Extremities: No edema, intact distal pulses. Neuro: Alert, oritented, no focal deficits. Detailed neuro exam was not performed. ASSESSMENT: # Tachycardia likely sinus. Less likely A-fib # Chronic diastolic heart failure, not in exacerbation # History of DVT PE 2021 # Severe sepsis # Right upper extremity cellulitis # Acute on chronic hypoxic and hypercapnic respiratory failure # Morbid obesity PLAN: Obtain lipid and A1c level Discontinue amiodarone discontinue Cardizem Continue Eliquis 5 twice daily for history of DVT Lipitor 40, start metoprolol succinate 12.5 mg daily. Apparently patient takes metoprolol succinate 100 mg daily. At this time patient's blood pressure is low normal. So hold his medications. Eventually increased dose of beta-sanju She takes Lasix 20 mg p.o. twice daily at home. Resume Lasix 20 mg p.o. twice daily Obtain updated echo Yoseph Woodard MD, FACC, RPVI Thank you for allowing [facility] to participate in this patient's care. Feel free to reach out in case of any followup questions. 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 some type of infection in lungs that won't clear up History of Any Multi-Drug Resistant Organisms: None Reported Past Surgical History: Joint Replacement, Orthopedic Surgery, Tonsillectomy Additional Past Surgical History / Comment(s): RT SHOULDER SX rt shoulder replaced and corey knee replacement,. COLONOSCOPY. BILAT CATARACTS REMOVED WITH LENS IMPLANTS Past Anesthesia/Blood Transfusion Reactions: No Reported Reaction Past Psychological History: No Psychological Hx Reported Smoking Status: Former smoker Past Alcohol Use History: None Reported Additional Past Alcohol Use History / Comment(s): QUIT SMOKING 1999 Past Drug Use History: None Reported - Past Family History Mother Family Medical History: Cancer Sister(s) Family Medical History: Cancer Medications and Allergies Home Medications Medication Instructions Recorded Confirmed Type Aspirin [Adult Low Dose Aspirin EC] 81 mg PO DAILY 07/21/16 04/30/25 History Ipratropium/Albuterol Sulfate 1 puff INHALATION RT-QID PRN 07/21/16 04/30/25 History [Combivent Respimat Inhaler] Levothyroxine Sodium [Synthroid] 112 mcg PO DAILY 07/21/16 04/30/25 History Apixaban [Eliquis] 5 mg PO BID 05/05/22 04/30/25 History Furosemide [Lasix] 20 mg PO BID 05/05/22 04/30/25 History Multivit-Min/Iron/Folic/Lutein 1 tab PO DAILY 09/26/24 04/30/25 History [Centrum Silver Women Tablet] predniSONE 10 mg PO DAILY 09/26/24 04/30/25 History Cyclobenzaprine [Flexeril] 10 mg PO HS PRN 30 Days #30 tab 03/22/25 04/30/25 Rx HYDROcodone/APAP 10-325MG [[place] 1 tab PO QID PRN 30 Days #120 tab 03/22/25 04/30/25 Rx 10-325] Biotin 5,000 mcg PO DAILY 04/30/25 04/30/25 History Cholecalciferol (Vitamin D3) 50 mcg PO DAILY 04/30/25 04/30/25 History [Vitamin D3 (50 Mcg = 2000 Iu)] Fluticasone/Umeclidin/Vilanter 1 puff INHALATION RT-DAILY 04/30/25 04/30/25 History [Trelegy Ellipta 200-62.5-25] Ipratropium-Albuterol Nebulize 3 ml INHALATION RT-QID 04/30/25 04/30/25 History [Duoneb 0.5 mg-3 mg/3 ml Soln] Metoprolol Succinate (ER) [Toprol 100 mg PO DAILY 04/30/25 04/30/25 History Xl] Potassium Chloride ER [K-Dur 10] 10 meq PO MOWEFR 04/30/25 04/30/25 History guaiFENesin-DM 100-10MG/5ML 20 ml PO QID PRN 04/30/25 04/30/25 History [Robitussin DM] Allergies Allergy/AdvReac Type Severity Reaction Status Date / Time metolazone AdvReac "negative Verified 04/30/25 09:22 reaction" Physical Exam Vitals: Vital Signs Temp Pulse Pulse Resp BP Pulse Ox 04/30/25 11:24 84 04/30/25 11:15 83 04/30/25 08:15 86 04/30/25 08:00 82 100 04/30/25 07:02 80 18 96/53 100 04/30/25 05:21 87 22 105/61 100 04/30/25 04:41 101 H 28 H 107/79 04/30/25 04:37 91 26 H 04/30/25 04:15 91 15 97/56 100 04/30/25 02:36 97.3 F L 100 23 102/49 100 04/30/25 02:01 102 H 23 96/37 100 04/30/25 01:53 103 H 18 96/37 100 04/30/25 01:00 108 H 24 101/52 99 04/30/25 00:50 106 H 24 101/52 99 04/30/25 00:48 97.1 F L 109 H 20 101/52 99 04/30/25 00:00 115 H 23 91/45 98 04/29/25 23:00 124 H 23 88/58 97 04/29/25 22:00 128 H 22 111/56 98 04/29/25 20:52 98.0 F 133 H 20 106/75 98 04/29/25 20:45 124 H 04/29/25 20:39 129 H 04/29/25 20:19 126 H 20 112/59 97 04/29/25 20:02 115 H 23 98/58 97 04/29/25 19:52 87 23 86/50 98 04/29/25 19:40 148 H 20 104/66 98 04/29/25 19:30 99.6 F 146 H 143 H 24 88/63 Intake and Output 04/29/25 04/30/25 04/30/25 22:59 06:59 14:59 Other: # Bowel Movements 1 Weight 99.79 kg Results 04/30/25 02:05 04/30/25 02:05 Cardiac Enzymes 04/29/25 04/29/25 04/30/25 Range/Units 20:40 20:40 02:05 AST 31 20 (14-36) U/L Troponin I <0.012 (0.000-0.034) ng/mL CBC 04/29/25 04/30/25 Range/Units 19:36 02:05 WBC 35.79 H 43.40 H (4.50-10.00) 10*3/uL RBC 4.86 4.22 (4.10-5.20) 10*6/uL Hgb 16.6 H 14.5 (12.0-15.0) g/dL Hct 50.2 H 43.8 (37.2-46.3) % Plt Count 177 215 (140-440) 10*3/uL Comprehensive Metabolic Panel 04/29/25 04/30/25 Range/Units 20:40 02:05 Sodium 136 L 136 L (137-145) mmol/L Potassium 4.6 3.9 (3.5-5.1) mmol/L Chloride 103 104 (98-107) mmol/L Carbon Dioxide 24 23 (22-30) mmol/L BUN 25 H 26 H (7-17) mg/dL Creatinine 0.95 1.06 H (0.52-1.04) mg/dL Glucose 97 107 H (74-99) mg/dL Calcium 10.4 H 9.7 (8.4-10.2) mg/dL AST 31 20 (14-36) U/L ALT 21 17 (4-34) U/L Alkaline Phosphatase 79 79 (38-126) U/L Total Protein 6.6 5.4 L (6.3-8.2) g/dL Albumin 4.0 3.2 L (3.5-5.0) g/dL Current Medications Generic Name Dose Route Start Last Admin Trade Name Freq PRN Reason Stop Dose Admin Albuterol/Ipratropium 3 ml 04/30/25 08:00 04/30/25 11:15 Ipratropium-Albuterol 3 Ml Neb INHALATION 3 ml RT-QID JOAQUÍN Administration Albuterol/Ipratropium 3 ml 04/30/25 01:15 Ipratropium-Albuterol 3 Ml Neb INHALATION RT-Q2H PRN Shortness Of Breath Or Wheezing Apixaban 5 mg 04/30/25 00:00 04/30/25 09:14 Apixaban 5 Mg Tab PO 5 mg BID JOAQUÍN Administration Protocol Atorvastatin Calcium 40 mg 04/30/25 21:00 Atorvastatin 40 Mg Tab PO HS JOAQUÍN Budesonide 0.5 mg 04/30/25 08:00 04/30/25 07:59 Budesonide 0.5 Mg/2 Ml Nebu INHALATION 0.5 mg RT-BID JOAQUÍN Administration Furosemide 20 mg 04/30/25 16:00 Furosemide 20 Mg Tab PO BID@0900,1600 JOAQUÍN Sodium Chloride 1,000 mls @ 125 mls/hr 04/29/25 23:45 04/30/25 08:00 Saline 0.9% IV 125 mls/hr .Q8H JOAQUÍN Administration Vancomycin HCl 1,750 mg/ 500 mls @ 167 mls/hr 04/30/25 20:00 Sodium Chloride IVPB Q24HR@2000 JOAQUÍN Cefepime HCl 2 gm/ Sodium 100 mls @ 25 mls/hr 04/30/25 12:00 Chloride IVPB Q12H JOAQUÍN Protocol Lactulose 20 gm 04/29/25 23:45 04/30/25 09:13 Lactulose 20 Gm/30 Ml Cup PO 20 gm BID JOAQUÍN Administration Melatonin 3 mg 04/29/25 23:32 Melatonin 3 Mg Tablet PO HS PRN Insomnia Methylprednisolone Sodium Succinate 40 mg 04/30/25 00:00 04/30/25 09:15 Methylprednisolone Sod Succi 40 Mg/Ml 1 Ml Vial IV 40 mg Q8HR JOAQUÍN Administration Metoprolol Succinate 12.5 mg 04/30/25 09:00 04/30/25 09:14 Metoprolol Succinate (Er) 25 Mg Tab.Er.24h PO 12.5 mg DAILY JOAQUÍN Administration Miscellaneous Information 1 each 04/29/25 21:49 Pneumonia Protocol Utilized 1 Each Misc PO ONCE PRN Per Protocol Naloxone HCl 0.2 mg 04/29/25 23:32 Naloxone 0.4 Mg/Ml 1 Ml Vial IV Q2M PRN Opioid Reversal Intake and Output 04/29/25 04/30/25 04/30/25 22:59 06:59 14:59 Other: # Bowel Movements 1 Weight 99.79 kg 04/30/25 02:05 04/30/25 02:05
--- NOTE | 2025-04-30 14:22 | P.PN ---
Subjective Progress Note Date: 04/30/25 Hospital Course: An 79-year-old female with PMH of chronic hypoxic respiratory failure due to C OPD, emphysema, not using her home 2 L nasal cannula as she does not require it reportedly, diastolic heart failure, history of DVT and PE on Eliquis, history of spinal stenosis, who presented to the ED with shortness of breath, hypoxia, right shoulder and right upper extremity redness. Also mentioned worsening weakness. Patient uses walker to ambulate. She does report recent upper respiratory tract infection including sneezing, runny nose and coughing. No fevers or chills. No genitourinary symptoms. She reports that her last bowel movement was a few days ago. Upon arrival to the ED, patient was tachycardic with a heart rate of 126, respiratory rate of 20. Her blood pressure was stable. 3 L nasal cannula oxygen were started. Labs done showing a WBC of 35.7, sodium 136, BUN of 25, potassium of 4.6, creatinine within normal limits, plasma lactic acid of 3.7 and repeat lactate of 5.2 ., Total bilirubin of 1.5, proBNP of 900, initial troponin was not elevated . Chest x-ray was done showing mild bibasilar infiltrate. CT of the abdomen and pelvis without contrast was done showing moderate fecal impaction . EKG was done showing A-fib with RVR and it is acute onset. Patient was started on Cardizem drip but her blood pressure dropped . Patient will be switched to amiodarone drip . Pulmonology, infectious disease and cardiology will be consulted. Patient will be admitted to cardiac stepdown. Per cardiology, patient is likely in sinus tachycardia, Cardizem and amiodarone discontinued, continued on Eliquis, started on metoprolol succinate 12.5 daily, home dose of 100 mg daily although blood pressure is low normal now, resumed on home Lasix 20 mg p.o. daily Lipitor 40 mg daily started,, TTE ordered and pending. 04/30/2025: Seen and examined in the ER, patient states that she feels significantly better, her breathing is improving, she feels stronger. Patient had big bowel movement, she is afebrile, blood pressure stable 107/54, she is satting well on 4 L nasal cannula, heart rate in the 80s. Lab work showed increasing WBC 23.4, likely due to steroids, hemoglobin 13.5, ABG showed normal pH, pCO2 normal 38, PO257, sodium stable 136, normal potassium, creatinine 1.06, lactate 2.5, magnesium 1.5, phosphorus 2.4. Pertinent positives and negatives as discussed above, a complete review of systems was performed and all other systems are negative. Vitals Signs Reviewed. General: [nontoxic], [no distress], [appears at stated age] Derm: [warm], [dry], right upper extremity significant erythema, warmness, Head: [atraumatic], [normocephalic], [symmetric] Eyes: [EOMI], [no lid lag], [anicteric sclera] Mouth: [no lip lesion], [mucus membranes moist] Cardiovascular: [S1S2 reg], [no murmur] Lungs: Mild bilateral end expiratory], [no rhonchi, no rales] , [no accessory muscle use] Abdominal: [soft], [ nontender to palpation], [no guarding], [no appreciable organomegaly] Ext: [no gross muscle atrophy], [lateral lower extremity 1+ edema], [no contractures] Neuro: [ CN II-XI grossly intact], [no focal neuro deficits] Psych: [Alert], [oriented], [appropriate affect] Assessment and Plan: Sepsis secondary to community-acquired pneumonia and right upper extremity cellulitis Acute on chronic hypoxic hypercapnic respiratory failure secondary to above and COPD exacerbation Generalized weakness secondary to above Lactic acidosis secondary to above -Continue vancomycin, pharmacy to dose, monitor daily BMP for kidney toxicity, continue cefepime 2 g every 12 hours - Follow-up MRSA swab, blood cultures, sputum cultures ordered, patient does not have any sputum - PT consulted, appreciate recommendations - Legionella and mycoplasma pneumonia pending - Daily CBC - Continue telemetry -Pulmonology consulted, appreciate recommendation -Continue DuoNebs scheduled 4 times daily and as needed, Solu-Medrol 40 mg IV every 8 hours -Physical therapy consult Tachycardia, likely sinus Chronic diastolic heart failure, not in acute exacerbation - Cardiology consulted -Cardizem and amiodarone discontinued, continued on Eliquis, started on metoprolol succinate 12.5 daily, home dose of 100 mg daily although blood pressure is low normal now, resumed on home Lasix 20 mg p.o. twice daily - TTE pending History of DVT/PE: Continue home Eliquis 5 mg twice daily Fecal impaction, patient is disimpacted, start MiraLAX daily DVT ppx: Eliquis Code status: Full Anticipated discharge place: [facility] Anticipated discharge time: 80 Objective - Vital Signs Vital signs: Vital Signs Temp 97.7 F 04/30/25 11:00 Pulse 88 04/30/25 14:00 Resp 21 04/30/25 14:00 BP 102/60 04/30/25 14:00 Pulse Ox 99 04/30/25 14:00 FiO2 Intake & Output 04/29/25 04/30/25 04/30/25 18:59 06:59 18:59 Weight 99.79 kg Other: # Bowel Movements 1 - Labs CBC & Chem 7: 04/30/25 02:05 04/30/25 02:05 Labs: Abnormal Lab Results - Last 24 Hours (Table) 04/29/25 04/29/25 04/29/25 Range/Units 19:36 19:36 20:40 WBC 35.79 H (4.50-10.00) 10*3/uL Hgb 16.6 H (12.0-15.0) g/dL Hct 50.2 H (37.2-46.3) % MCV 103.3 H (80.0-97.0) fL MCH 34.2 H (27.0-32.0) pg MPV 12.8 H (9.5-12.2) fL Immature Gran # 0.45 H (0.00-0.04) 10*3/uL Neutrophils # 31.65 H (1.80-7.70) 10*3/uL Neutrophils # (Manual) (1.3-7.7) k/uL Monocytes # 1.94 H (0.20-1.00) 10*3/uL Monocytes # (Manual) (0-1.0) k/uL Basophils # 0.19 H (0.00-0.10) 10*3/uL Metamyelocytes # (Man) (0) k/uL ABG pO2 (83-108) mmHg ABG Total CO2 (19-24) mmol/L ABG O2 Saturation (94-97) % Sodium 136 L (137-145) mmol/L BUN 25 H (7-17) mg/dL Creatinine (0.52-1.04) mg/dL Glucose (74-99) mg/dL Plasma Lactic Acid Bart 3.7 H* (0.7-2.0) mmol/L Calcium 10.4 H (8.4-10.2) mg/dL Phosphorus (2.5-4.5) mg/dL Total Bilirubin 1.5 H (0.2-1.3) mg/dL Total Protein (6.3-8.2) g/dL Albumin (3.5-5.0) g/dL TSH (0.465-4.680) mIU/L 04/29/25 04/29/25 04/30/25 Range/Units 20:40 23:15 01:03 WBC (4.50-10.00) 10*3/uL Hgb (12.0-15.0) g/dL Hct (37.2-46.3) % MCV (80.0-97.0) fL MCH (27.0-32.0) pg MPV (9.5-12.2) fL Immature Gran # (0.00-0.04) 10*3/uL Neutrophils # (1.80-7.70) 10*3/uL Neutrophils # (Manual) (1.3-7.7) k/uL Monocytes # (0.20-1.00) 10*3/uL Monocytes # (Manual) (0-1.0) k/uL Basophils # (0.00-0.10) 10*3/uL Metamyelocytes # (Man) (0) k/uL ABG pO2 57 L* (83-108) mmHg ABG Total CO2 26 H (19-24) mmol/L ABG O2 Saturation 92.0 L (94-97) % Sodium (137-145) mmol/L BUN (7-17) mg/dL Creatinine (0.52-1.04) mg/dL Glucose (74-99) mg/dL Plasma Lactic Acid Bart 5.2 H* (0.7-2.0) mmol/L Calcium (8.4-10.2) mg/dL Phosphorus (2.5-4.5) mg/dL Total Bilirubin (0.2-1.3) mg/dL Total Protein (6.3-8.2) g/dL Albumin (3.5-5.0) g/dL TSH 0.453 L (0.465-4.680) mIU/L 04/30/25 04/30/25 04/30/25 Range/Units 02:05 02:05 02:05 WBC 43.40 H (4.50-10.00) 10*3/uL Hgb (12.0-15.0) g/dL Hct (37.2-46.3) % MCV 103.8 H (80.0-97.0) fL MCH 34.4 H (27.0-32.0) pg MPV (9.5-12.2) fL Immature Gran # 1.63 H (0.00-0.04) 10*3/uL Neutrophils # (1.80-7.70) 10*3/uL Neutrophils # (Manual) 39.92 H (1.3-7.7) k/uL Monocytes # (0.20-1.00) 10*3/uL Monocytes # (Manual) 1.30 H (0-1.0) k/uL Basophils # (0.00-0.10) 10*3/uL Metamyelocytes # (Man) 0.43 H (0) k/uL ABG pO2 (83-108) mmHg ABG Total CO2 (19-24) mmol/L ABG O2 Saturation (94-97) % Sodium 136 L (137-145) mmol/L BUN 26 H (7-17) mg/dL Creatinine 1.06 H (0.52-1.04) mg/dL Glucose 107 H (74-99) mg/dL Plasma Lactic Acid Bart 2.8 H* (0.7-2.0) mmol/L Calcium (8.4-10.2) mg/dL Phosphorus 2.4 L (2.5-4.5) mg/dL Total Bilirubin 1.5 H (0.2-1.3) mg/dL Total Protein 5.4 L (6.3-8.2) g/dL Albumin 3.2 L (3.5-5.0) g/dL TSH (0.465-4.680) mIU/L 04/30/25 04/30/25 Range/Units 06:27 11:48 WBC (4.50-10.00) 10*3/uL Hgb (12.0-15.0) g/dL Hct (37.2-46.3) % MCV (80.0-97.0) fL MCH (27.0-32.0) pg MPV (9.5-12.2) fL Immature Gran # (0.00-0.04) 10*3/uL Neutrophils # (1.80-7.70) 10*3/uL Neutrophils # (Manual) (1.3-7.7) k/uL Monocytes # (0.20-1.00) 10*3/uL Monocytes # (Manual) (0-1.0) k/uL Basophils # (0.00-0.10) 10*3/uL Metamyelocytes # (Man) (0) k/uL ABG pO2 (83-108) mmHg ABG Total CO2 (19-24) mmol/L ABG O2 Saturation (94-97) % Sodium (137-145) mmol/L BUN (7-17) mg/dL Creatinine (0.52-1.04) mg/dL Glucose (74-99) mg/dL Plasma Lactic Acid Bart 3.9 H* 2.5 H* (0.7-2.0) mmol/L Calcium (8.4-10.2) mg/dL Phosphorus (2.5-4.5) mg/dL Total Bilirubin (0.2-1.3) mg/dL Total Protein (6.3-8.2) g/dL Albumin (3.5-5.0) g/dL TSH (0.465-4.680) mIU/L
--- NOTE | 2025-04-30 14:49 | P.CNPUL ---
History of Present Illness Consult date: 04/30/25 Reason for consult: COPD History of present illness: This is a very pleasant 79-year-old female patient with known history of COPD and tracheobronchomalacia who is coming into the hospital feeling weak and fatigued and tired and worn out. Immediately, the patient was noted to have a right upper extremity cellulitis above the elbow extending to the shoulder. The patient has significant leukocytosis with a white cell count of 35 with a hemog lobin of 16 and a platelet count of 177. Electrolytes are all within normal limits. Initial lactic acid level was up to 5.2 and it dropped down to 2.5 with fluids and antibiotics were also started. UA is negative. proBNP is 926. Troponins are negative. Electrolytes are all within normal limits. Normal renal function. Normal LFTs. Cultures were sent. The patient was started on IV cefepime and vancomycin. She has a dry skin and she has been scratching and she has developed some superficial ulceration in the skin in her right upper extremity. No altered mentation. The patient is currently on 4 L of oxygen by nasal cannula with a pulse ox of 99%. No altered mentation. She is in sinus tachycardia. She has diastolic heart failure and there is no signs of any exacerbation. Review of Systems Constitutional: Reports fatigue, Reports fever, Reports lethargy, Reports poor appetite, Reports weakness Eyes: denies as per HPI, denies blurred vision, denies bulging eye, denies decreased vision, denies diplopia, denies discharge, denies dry eye, denies irritation, denies itching, denies pain, denies photophobia, denies loss of peripheral vision, denies loss of vision, denies tunnel vision/blind spots Ears: deny: decreased hearing, ear discharge, earache, tinnitus Ears, nose, mouth and throat: Reports as per HPI Breasts: absent: as per HPI, change in shape, gynecomastia, masses, nipple discharge, pain, skin changes, swelling Breasts: Reports as per HPI Cardiovascular: Reports decreased exercise tolerance, Reports dyspnea on exertion Respiratory: Reports dyspnea Gastrointestinal: Reports nausea Genitourinary: Reports as per HPI Menstruation: Reports as per HPI Musculoskeletal: Reports as per HPI Musculoskeletal: absent: ankle pain, ankle stiffness, ankle swelling, as per HPI, elbow pain, elbow stiffness, elbow swelling, foot pain, foot stiffness, foot swelling, hand pain, hand stiffness, hand swelling, hip pain, hip stiffness, hip swelling, knee pain, knee stiffness, knee swelling, shoulder pain, shoulder stiffness, shoulder swelling, wrist pain, wrist stiffness, wrist swelling Integumentary: Reports color changes, Reports dryness Neurological: Reports as per HPI Psychiatric: Reports as per HPI Endocrine: Reports as per HPI, Reports fatigue Hematologic/Lymphatic: Reports as per HPI Allergic/Immunologic: Reports as per HPI Past Medical History Past Medical History: Asthma, Heart Failure, Hypertension, Pulmonary Embolus (PE), Renal Disease, Thyroid Disorder Additional Past Medical History / Comment(s): scoliosis, Vitamin D deficiency, DX POLYMYALGIA RHEUMATICA, 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 some type of infection in lungs that won't clear up History of Any Multi-Drug Resistant Organisms: None Reported Past Surgical History: Joint Replacement, Orthopedic Surgery, Tonsillectomy Additional Past Surgical History / Comment(s): RT SHOULDER SX rt shoulder replaced and corey knee replacement,. COLONOSCOPY. BILAT CATARACTS REMOVED WITH LENS IMPLANTS Past Anesthesia/Blood Transfusion Reactions: No Reported Reaction Past Psychological History: No Psychological Hx Reported Smoking Status: Former smoker Past Alcohol Use History: None Reported Additional Past Alcohol Use History / Comment(s): QUIT SMOKING 1999 Past Drug Use History: None Reported - Past Family History Mother Family Medical History: Cancer Sister(s) Family Medical History: Cancer Medications and Allergies Home Medications Medication Instructions Recorded Confirmed Type Aspirin [Adult Low Dose Aspirin EC] 81 mg PO DAILY 07/21/16 04/30/25 History Ipratropium/Albuterol Sulfate 1 puff INHALATION RT-QID PRN 07/21/16 04/30/25 History [Combivent Respimat Inhaler] Levothyroxine Sodium [Synthroid] 112 mcg PO DAILY 07/21/16 04/30/25 History Apixaban [Eliquis] 5 mg PO BID 05/05/22 04/30/25 History Furosemide [Lasix] 20 mg PO BID 05/05/22 04/30/25 History Multivit-Min/Iron/Folic/Lutein 1 tab PO DAILY 09/26/24 04/30/25 History [Centrum Silver Women Tablet] predniSONE 10 mg PO DAILY 09/26/24 04/30/25 History Cyclobenzaprine [Flexeril] 10 mg PO HS PRN 30 Days #30 tab 03/22/25 04/30/25 Rx HYDROcodone/APAP 10-325MG [[place] 1 tab PO QID PRN 30 Days #120 tab 03/22/25 04/30/25 Rx 10-325] Biotin 5,000 mcg PO DAILY 04/30/25 04/30/25 History Cholecalciferol (Vitamin D3) 50 mcg PO DAILY 04/30/25 04/30/25 History [Vitamin D3 (50 Mcg = 2000 Iu)] Fluticasone/Umeclidin/Vilanter 1 puff INHALATION RT-DAILY 04/30/25 04/30/25 History [Trelegy Ellipta 200-62.5-25] Ipratropium-Albuterol Nebulize 3 ml INHALATION RT-QID 04/30/25 04/30/25 History [Duoneb 0.5 mg-3 mg/3 ml Soln] Metoprolol Succinate (ER) [Toprol 100 mg PO DAILY 04/30/25 04/30/25 History Xl] Potassium Chloride ER [K-Dur 10] 10 meq PO MOWEFR 04/30/25 04/30/25 History guaiFENesin-DM 100-10MG/5ML 20 ml PO QID PRN 04/30/25 04/30/25 History [Robitussin DM] Allergies Allergy/AdvReac Type Severity Reaction Status Date / Time metolazone AdvReac "negative Verified 04/30/25 09:22 reaction" Physical Exam Vitals: Vital Signs Temp Pulse Pulse Resp BP Pulse Ox 04/30/25 08:15 86 04/30/25 08:00 82 100 04/30/25 07:02 80 18 96/53 100 04/30/25 05:21 87 22 105/61 100 04/30/25 04:41 101 H 28 H 107/79 04/30/25 04:37 91 26 H 04/30/25 04:15 91 15 97/56 100 04/30/25 02:36 97.3 F L 100 23 102/49 100 04/30/25 02:01 102 H 23 96/37 100 04/30/25 01:53 103 H 18 96/37 100 04/30/25 01:00 108 H 24 101/52 99 04/30/25 00:50 106 H 24 101/52 99 04/30/25 00:48 97.1 F L 109 H 20 101/52 99 04/30/25 00:00 115 H 23 91/45 98 04/29/25 23:00 124 H 23 88/58 97 04/29/25 22:00 128 H 22 111/56 98 04/29/25 20:52 98.0 F 133 H 20 106/75 98 04/29/25 20:45 124 H 04/29/25 20:39 129 H 04/29/25 20:19 126 H 20 112/59 97 04/29/25 20:02 115 H 23 98/58 97 04/29/25 19:52 87 23 86/50 98 04/29/25 19:40 148 H 20 104/66 98 04/29/25 19:30 99.6 F 146 H 143 H 24 88/63 Intake and Output 04/29/25 04/30/25 04/30/25 22:59 06:59 14:59 Other: # Bowel Movements 1 Weight 99.79 kg The patient appeared well nourished and normally developed. Vital signs as documented. Obese, comfortable with a BMI of 39 Head exam is unremarkable. No scleral icterus or corneal arcus noted. Neck is without jugular venous distension, thyromegaly, or carotid bruits. Ca rotid upstrokes are brisk bilaterally. Lungs are clear to auscultation and percussion. Lungs are diminished bilaterally along with few scattered expiratory wheeze Cardiac exam reveals the PMI to be normally sized and situated. Rhythm is regular. First and second heart sounds normal. No murmurs, rubs or gallops. Abdominal exam reveals normal bowel sounds, no masses, no organomegaly and no aortic enlargement. Extremities are nonedematous and both femoral and pedal pulses are normal. An area of extensive cellulitis in the right upper extremity above the elbow with significant erythema and warmth. No gas. Examination of the skin revealed no evidence of significant rashes, suspicious appearing nevi or other concerning lesions. Neurologically, the patient is awake and alert and the patient does not have any focal neurological deficit. Cranial nerves are essentially intact. Results - Laboratory Findings CBC and BMP: 04/30/25 02:05 04/30/25 02:05 ABG ABG pH 7.42 (7.35-7.45) 04/30/25 01:03 ABG pCO2 38 mmHg (35-45) 04/30/25 01:03 ABG pO2 57 mmHg (83-108) L* 04/30/25 01:03 ABG O2 Saturation 92.0 % (94-97) L 04/30/25 01:03 Abnormal lab findings: Abnormal Labs 04/29/25 04/29/25 04/29/25 19:36 19:36 20:40 WBC 35.79 H Hgb 16.6 H Hct 50.2 H MCV 103.3 H MCH 34.2 H MPV 12.8 H Immature Gran # 0.45 H Neutrophils # 31.65 H Neutrophils # (Manual) Monocytes # 1.94 H Monocytes # (Manual) Basophils # 0.19 H Metamyelocytes # (Man) ABG pO2 ABG Total CO2 ABG O2 Saturation Sodium 136 L BUN 25 H Creatinine Glucose Plasma Lactic Acid Bart 3.7 H* Calcium 10.4 H Phosphorus Total Bilirubin 1.5 H Total Protein Albumin TSH 04/29/25 04/29/25 04/30/25 20:40 23:15 01:03 WBC Hgb Hct MCV MCH MPV Immature Gran # Neutrophils # Neutrophils # (Manual) Monocytes # Monocytes # (Manual) Basophils # Metamyelocytes # (Man) ABG pO2 57 L* ABG Total CO2 26 H ABG O2 Saturation 92.0 L Sodium BUN Creatinine Glucose Plasma Lactic Acid Bart 5.2 H* Calcium Phosphorus Total Bilirubin Total Protein Albumin TSH 0.453 L 04/30/25 04/30/25 04/30/25 02:05 02:05 02:05 WBC 43.40 H Hgb Hct MCV 103.8 H MCH 34.4 H MPV Immature Gran # 1.63 H Neutrophils # Neutrophils # (Manual) 39.92 H Monocytes # Monocytes # (Manual) 1.30 H Basophils # Metamyelocytes # (Man) 0.43 H ABG pO2 ABG Total CO2 ABG O2 Saturation Sodium 136 L BUN 26 H Creatinine 1.06 H Glucose 107 H Plasma Lactic Acid Bart 2.8 H* Calcium Phosphorus 2.4 L Total Bilirubin 1.5 H Total Protein 5.4 L Albumin 3.2 L TSH 04/30/25 06:27 WBC Hgb Hct MCV MCH MPV Immature Gran # Neutrophils # Neutrophils # (Manual) Monocytes # Monocytes # (Manual) Basophils # Metamyelocytes # (Man) ABG pO2 ABG Total CO2 ABG O2 Saturation Sodium BUN Creatinine Glucose Plasma Lactic Acid Bart 3.9 H* Calcium Phosphorus Total Bilirubin Total Protein Albumin TSH - Diagnostic Findings Chest x-ray: image reviewed Assessment and Plan Plan: Acute cellulitis of the right upper extremity Acute sepsis secondary to above Acute leukocytosis secondary to above Acute lactic acidosis secondary to above, improving COPD/asthma with a component of tracheobronchomalacia which is currently negative and stable Sinus tachycardia secondary to above Obesity Polymyalgia rheumatica Hypertension Hypothyroidism Previous history of pulmonary embolism, maintained on long-term anticoagulation with Eliquis Scoliosis Plan Continue IV fluids. The patient was given a total of 1 L bolus and the patient is currently on maintenance IV fluids. Continue broad-spectrum antibiotics and the patient is currently on a combination of cefepime and vancomycin. Monitor right upper extremity cellulitis Monitor white count Lactic acid level is improving Oxygenation is stable blood gas was noted and there is no significant respiratory acidosis Resume home medication will continue to follow.
[2025-04-30] MEDS ORDERED: ZINC OXIDE PASTE (Z-GUARD) 1 APPLIC TOPICAL PRN (15:56)
[2025-04-30] MEDS: FUROSEMIDE 20 MG TAB PO SCH (16:34)
[2025-04-30 16:42] LABS: Glucose,Whole Blood 120 mg/dL (70-110)
[2025-04-30] MEDS ORDERED: AZITHROMYCIN 500 MG in SODIUM CHLORIDE 0.9% 250 ML IVPB SCH (21:00)
[2025-04-30] MEDS: ATORVASTATIN 40 MG TAB PO SCH (21:22)
[2025-04-30] MEDS: VANCOMYCIN 1,750 MG in SODIUM CHLORIDE 0.9% 500 ML 500 ML IVPB SCH (21:22)
[2025-04-30] MEDS: HYDROcodone/APAP 5-325MG 1 EACH TAB PO PRN (21:53)
--- NOTE | 2025-04-30 22:01 | P.CONS ---
History of Present Illness - Reason for Consult Consult date: 04/30/25 - History of Present Illness Patient is a 79-year-old female with a past medical history significant for Asthma, Heart Failure, Hypertension, Pulmonary Embolus (PE), Renal Disease, Thyroid Disorder, patient has been brought into the hospital concerning for weakness increasing shortness of breath and the patient also complaining of increasing swelling redness and pain to the right upper extremity patient mention he started with a rash in the right upper extremity more than a week ago and she been treated locally however the the day of presentation the hospital the right upper extremity has increasing becoming more swollen red and painful describing it to be sharp moderate intensity and painful to touch pa tania was also complaining of increasing shortness of breath on minimal exertion able to rest she did have mild cough but not bringing up any sputum did have some nausea but no vomiting no abdominal pain or any diarrhea with the symptoms the patient was evaluated on presentation to the hospital she did have a low- grade fever of 99.6 F patient was tachycardic but not hypotensive mildly hypoxic currently on 3 L nasal cannula oxygen patient did have elevated lactic acid white count of 35.7 and repeat is 43.40 BUN and creatinine has been mildly elevated have elevated lactic acid UA has been negative patient did have a chest x-ray mild bibasilar infiltrate follow-up recommended did have abdominal pelvis CT without contrast lung bases were clear there was moderate fecal retention with fecal bolus in the rectum correlate for impaction patient was admitted to the hospital she was started on cefepime and vancomycin infectious disease was consulted concerning for sepsis Past Medical History Past Medical History: Asthma, Heart Failure, Hypertension, Pulmonary Embolus (PE), Renal Disease, Thyroid Disorder Additional Past Medical History / Comment(s): scoliosis, Vitamin D deficiency, DX POLYMYALGIA RHEUMATICA, 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 some type of infection in lungs that won't clear up History of Any Multi-Drug Resistant Organisms: None Reported Past Surgical History: Joint Replacement, Orthopedic Surgery, Tonsillectomy Additional Past Surgical History / Comment(s): RT SHOULDER SX rt shoulder replaced and corey knee replacement,. COLONOSCOPY. BILAT CATARACTS REMOVED WITH LENS IMPLANTS Past Anesthesia/Blood Transfusion Reactions: No Reported Reaction Past Psychological History: No Psychological Hx Reported Smoking Status: Former smoker Past Alcohol Use History: None Reported Additional Past Alcohol Use History / Comment(s): QUIT SMOKING 1999 Past Drug Use History: None Reported - Past Family History Mother Family Medical History: Cancer Sister(s) Family Medical History: Cancer Medications and Allergies Home Medications Medication Instructions Recorded Confirmed Type Aspirin [Adult Low Dose Aspirin EC] 81 mg PO DAILY 07/21/16 04/30/25 History Ipratropium/Albuterol Sulfate 1 puff INHALATION RT-QID PRN 07/21/16 04/30/25 History [Combivent Respimat Inhaler] Levothyroxine Sodium [Synthroid] 112 mcg PO DAILY 07/21/16 04/30/25 History Apixaban [Eliquis] 5 mg PO BID 05/05/22 04/30/25 History Furosemide [Lasix] 20 mg PO BID 05/05/22 04/30/25 History Multivit-Min/Iron/Folic/Lutein 1 tab PO DAILY 09/26/24 04/30/25 History [Centrum Silver Women Tablet] predniSONE 10 mg PO DAILY 09/26/24 04/30/25 History Cyclobenzaprine [Flexeril] 10 mg PO HS PRN 30 Days #30 tab 03/22/25 04/30/25 Rx HYDROcodone/APAP 10-325MG [Minter 1 tab PO QID PRN 30 Days #120 tab 03/22/25 04/30/25 Rx 10-325] Biotin 5,000 mcg PO DAILY 04/30/25 04/30/25 History Cholecalciferol (Vitamin D3) 50 mcg PO DAILY 04/30/25 04/30/25 History [Vitamin D3 (50 Mcg = 2000 Iu)] Fluticasone/Umeclidin/Vilanter 1 puff INHALATION RT-DAILY 04/30/25 04/30/25 H istory [Trelegy Ellipta 200-62.5-25] Ipratropium-Albuterol Nebulize 3 ml INHALATION RT-QID 04/30/25 04/30/25 History [Duoneb 0.5 mg-3 mg/3 ml Soln] Metoprolol Succinate (ER) [Toprol 100 mg PO DAILY 04/30/25 04/30/25 History Xl] Potassium Chloride ER [K-Dur 10] 10 meq PO MOWEFR 04/30/25 04/30/25 History guaiFENesin-DM 100-10MG/5ML 20 ml PO QID PRN 04/30/25 04/30/25 History [Robitussin DM] Allergies Allergy/AdvReac Type Severity Reaction Status Date / Time metolazone AdvReac "negative Verified 04/30/25 09:22 reaction" Physical Exam Vitals: Vital Signs Temp Pulse Pulse Resp BP Pulse Ox 04/30/25 14:00 88 21 102/60 99 04/30/25 13:00 85 22 110/76 100 04/30/25 12:00 86 19 96/83 99 04/30/25 11:24 84 04/30/25 11:15 83 04/30/25 11:00 97.7 F 86 22 107/54 99 04/30/25 10:00 81 24 110/53 99 04/30/25 09:00 79 24 100/58 100 04/30/25 08:15 86 04/30/25 08:00 97.6 F 75 24 113/53 100 04/30/25 07:02 80 18 96/53 100 04/30/25 05:21 87 22 105/61 100 04/30/25 04:41 101 H 28 H 107/79 04/30/25 04:37 91 26 H 04/30/25 04:15 91 15 97/56 100 04/30/25 02:36 97.3 F L 100 23 102/49 100 04/30/25 02:01 102 H 23 96/37 100 04/30/25 01:53 103 H 18 96/37 100 04/30/25 01:00 108 H 24 101/52 99 04/30/25 00:50 106 H 24 101/52 99 04/30/25 00:48 97.1 F L 109 H 20 101/52 99 04/30/25 00:00 115 H 23 91/45 98 04/29/25 23:00 124 H 23 88/58 97 04/29/25 22:00 128 H 22 111/56 98 04/29/25 20:52 98.0 F 133 H 20 106/75 98 04/29/25 20:45 124 H 04/29/25 20:39 129 H 04/29/25 20:19 126 H 20 112/59 97 04/29/25 20:02 115 H 23 98/58 97 04/29/25 19:52 87 23 86/50 98 04/29/25 19:40 148 H 20 104/66 98 04/29/25 19:30 99.6 F 146 H 143 H 24 88/63 Intake and Output 04/29/25 04/30/25 04/30/25 22:59 06:59 14:59 Other: # Bowel Movements 1 Weight 99.79 kg Results CBC & Chem 7: 04/30/25 02:05 04/30/25 02:05 Labs: Abnormal Lab Results - Last 24 Hours (Table) 04/29/25 04/29/25 04/29/25 Range/Units 19:36 19:36 20:40 WBC 35.79 H (4.50-10.00) 10*3/uL Hgb 16.6 H (12.0-15.0) g/dL Hct 50.2 H (37.2-46.3) % MCV 103.3 H (80.0-97.0) fL MCH 34.2 H (27.0-32.0) pg MPV 12.8 H (9.5-12.2) fL Immature Gran # 0.45 H (0.00-0.04) 10*3/uL Neutrophils # 31.65 H (1.80-7.70) 10*3/uL Neutrophils # (Manual) (1.3-7.7) k/uL Monocytes # 1.94 H (0.20-1.00) 10*3/uL Monocytes # (Manual) (0-1.0) k/uL Basophils # 0.19 H (0.00-0.10) 10*3/uL Metamyelocytes # (Man) (0) k/uL ABG pO2 (83-108) mmHg ABG Total CO2 (19-24) mmol/L ABG O2 Saturation (94-97) % Sodium 136 L (137-145) mmol/L BUN 25 H (7-17) mg/dL Creatinine (0.52-1.04) mg/dL Glucose (74-99) mg/dL Plasma Lactic Acid Bart 3.7 H* (0.7-2.0) mmol/L Calcium 10.4 H (8.4-10.2) mg/dL Phosphorus (2.5-4.5) mg/dL Total Bilirubin 1.5 H (0.2-1.3) mg/dL Total Protein (6.3-8.2) g/dL Albumin (3.5-5.0) g/dL TSH (0.465-4.680) mIU/L 04/29/25 04/29/25 04/30/25 Range/Units 20:40 23:15 01:03 WBC (4.50-10.00) 10*3/uL Hgb (12.0-15.0) g/dL Hct (37.2-46.3) % MCV (80.0-97.0) fL MCH (27.0-32.0) pg MPV (9.5-12.2) fL Immature Gran # (0.00-0.04) 10*3/uL Neutrophils # (1.80-7.70) 10*3/uL Neutrophils # (Manual) (1.3-7.7) k/uL Monocytes # (0.20-1.00) 10*3/uL Monocytes # (Manual) (0-1.0) k/uL Basophils # (0.00-0.10) 10*3/uL Metamyelocytes # (Man) (0) k/uL ABG pO2 57 L* (83-108) mmHg ABG Total CO2 26 H (19-24) mmol/L ABG O2 Saturation 92.0 L (94-97) % Sodium (137-145) mmol/L BUN (7-17) mg/dL Creatinine (0.52-1.04) mg/dL Glucose (74-99) mg/dL Plasma Lactic Acid Bart 5.2 H* (0.7-2.0) mmol/L Calcium (8.4-10.2) mg/dL Phosphorus (2.5-4.5) mg/dL Total Bilirubin (0.2-1.3) mg/dL Total Protein (6.3-8.2) g/dL Albumin (3.5-5.0) g/dL TSH 0.453 L (0.465-4.680) mIU/L 04/30/25 04/30/25 04/30/25 Range/Units 02:05 02:05 02:05 WBC 43.40 H (4.50-10.00) 10*3/uL Hgb (12.0-15.0) g/dL Hct (37.2-46.3) % MCV 103.8 H (80.0-97.0) fL MCH 34.4 H (27.0-32.0) pg MPV (9.5-12.2) fL Immature Gran # 1.63 H (0.00-0.04) 10*3/uL Neutrophils # (1.80-7.70) 10*3/uL Neutrophils # (Manual) 39.92 H (1.3-7.7) k/uL Monocytes # (0.20-1.00) 10*3/uL Monocytes # (Manual) 1.30 H (0-1.0) k/uL Basophils # (0.00-0.10) 10*3/uL Metamyelocytes # (Man) 0.43 H (0) k/uL ABG pO2 (83-108) mmHg ABG Total CO2 (19-24) mmol/L ABG O2 Saturation (94-97) % Sodium 136 L (137-145) mmol/L BUN 26 H (7-17) mg/dL Creatinine 1.06 H (0.52-1.04) mg/dL Glucose 107 H (74-99) mg/dL Plasma Lactic Acid Bart 2.8 H* (0.7-2.0) mmol/L Calcium (8.4-10.2) mg/dL Phosphorus 2.4 L (2.5-4.5) mg/dL Total Bilirubin 1.5 H (0.2-1.3) mg/dL Total Protein 5.4 L (6.3-8.2) g/dL Albumin 3.2 L (3.5-5.0) g/dL TSH (0.465-4.680) mIU/L 04/30/25 04/30/25 Range/Units 06:27 11:48 WBC (4.50-10.00) 10*3/uL Hgb (12.0-15.0) g/dL Hct (37.2-46.3) % MCV (80.0-97.0) fL MCH (27.0-32.0) pg MPV (9.5-12.2) fL Immature Gran # (0.00-0.04) 10*3/uL Neutrophils # (1.80-7.70) 10*3/uL Neutrophils # (Manual) (1.3-7.7) k/uL Monocytes # (0.20-1.00) 10*3/uL Monocytes # (Manual) (0-1.0) k/uL Basophils # (0.00-0.10) 10*3/uL Metamyelocytes # (Man) (0) k/uL ABG pO2 (83-108) mmHg ABG Total CO2 (19-24) mmol/L ABG O2 Saturation (94-97) % Sodium (137-145) mmol/L BUN (7-17) mg/dL Creatinine (0.52-1.04) mg/dL Glucose (74-99) mg/dL Plasma Lactic Acid Bart 3.9 H* 2.5 H* (0.7-2.0) mmol/L Calcium (8.4-10.2) mg/dL Phosphorus (2.5-4.5) mg/dL Total Bilirubin (0.2-1.3) mg/dL Total Protein (6.3-8.2) g/dL Albumin (3.5-5.0) g/dL TSH (0.465-4.680) mIU/L Assessment and Plan (1) Sepsis Current Visit: Yes Status: Acute Code(s): A41.9 - SEPSIS, UNSPECIFIED ORGANISM SNOMED Code(s): 16947936 (2) Right arm cellulitis Current Visit: Yes Status: Acute Code(s): L03.113 - CELLULITIS OF RIGHT UPPER LIMB SNOMED Code(s): 87295603649980792 Plan: 1patient presented to hospital with sepsis in this patient who did have a low- grade fever patient did have tachycardia elevated white count elevated lactic acid meeting currently for SIRS/sepsis source is likely a combination of right upper extremity cellulitis plus minus abdominal source as the patient did have evidence of significant stool retention on CT, unfortunately CT was done without any contrast that limit the sensitivity of that testing 2patient is broadly covered with the vancomycin and cefepime however still noticed to have worsening of the white count, we will add Flagyl to optimize abdominal coverage 3marked the area of the redness of the right upper extremity discussed with the nursing staff 4will repeat a CBC with a.m. lab to make sure the white count is trending up and follow-up on the culture Question concern answered We will follow on clinical condition and cultures to further adjust medication if needed Thank you for this consultation we will follow the patient along with you Dictation was produced using [employer] dictation software. please excuse any grammatical, word or spelling errors. Time with Patient: Greater than 30
[2025-05-01] MEDS: metroNIDAZOLE 500 MG TAB PO SCH (00:03)
[2025-05-01] MEDS: LACTATED RINGERS 1,000 ML IV SCH (00:04)
[2025-05-01] MEDS: ONDANSETRON 4 MG/2 ML VIAL IVP STA (00:46)
[2025-05-01 05:23] LABS: Mycoplasma IgG Antibody (EIA) 1.13 INDEX (<=0.90); Mycoplasma IgM Antibody 0.08 INDEX (<=0.90)
[2025-05-01] MEDS: METOCLOPRAMIDE 5 MG/ML 2 ML VIAL IVP STA (05:35)
[2025-05-01 07:31] LABS: African American GFR (CKD) 83 (>60 ml/min/1.73 sqM); Non-African American GFR(CKD) 72 (>60 ml/min/1.73 sqM)
[2025-05-01] MEDS: polyethylene glycoL 3350 17 GM POWD.PACK PO SCH (09:00)
[2025-05-01] MEDS: METOPROLOL SUCCINATE (ER) 50 MG TAB.ER.24H PO SCH (10:27)
[2025-05-01 11:16] LABS: Glucose,Whole Blood 105 mg/dL (70-110)
--- NOTE | 2025-05-01 12:00 | CA ---
Transthoracic Echo Report Name: Lyudmila Brower Age: 79 Gender: F : 1945 Exam Date: 05/01/2025 09:14 Exam Location: [facility] Ht (in): 63 Wt (lb): 220 Ordering Physician: Yoseph Woodard MD ([id number]) Attending/Referring Phys: Medical Instrument Technician Manfred Gorman RDCS Procedure CPT: Indications: cardiomyopathy Cardiac Hx: Heart failure, HTN, Asthma, PE Technical Quality: Very technically difficult study Contrast 1: Definity Total Dose (mL): 2 Contrast 2: Total Dose (mL): MEASUREMENTS (Male / Female) Normal Values 2D ECHO LV Diastolic Diameter PLAX 4.3 cm 4.2 - 5.9 / 3.9 - 5.3 cm LV Systolic Diameter PLAX 2.6 cm IVS Diastolic Thickness 1.1 cm 0.6 - 1.0 / 0.6 - 0.9 cm LVPW Diastolic Thickness 1.1 cm 0.6 - 1.0 / 0.6 - 0.9 cm LV Relative Wall Thickness 0.5 RV Internal Dim ED PLAX 3.2 cm Aortic Root Diameter 3.0 cm LA Systolic Diameter LX 3.3 cm 3.0 - 4.0 / 2.7 - 3.8 cm DOPPLER MV Area PHT 4.9 cm??? MV E' Velocity 7.8 cm/s TR Peak Velocity 219.8 cm/s TR Peak Gradient 19.3 mmHg Right Atrial Pressure 20.0 mmHg Pulmonary Artery Systolic Pressu 39.3 mmHg Right Ventricular Systolic Press 39.3 mmHg FINDINGS Left Ventricle Left ventricular ejection fraction is estimated at 55-60 %. Mild concentric left ventricular hypertrophy. No obvious regional wall motion abnormalities. Right Ventricle Right ventricle not well visualized. Mild pulmonary hypertension.prominent moderator band in right ventricle (normal variant). Right Atrium Right atrium not well visualized. Left Atrium Left atrium not well visualized. Mitral Valve Mitral valve not well visualized. No mitral stenosis, regurgitation or prolapse. Aortic Valve Aortic valve not well visualized. No aortic valve stenosis or regurgitation. Tricuspid Valve Tricuspid valve not well visualized. No tricuspid stenosis. Trace tricuspid regurgitation. Pulmonic Valve Pulmonic valve not well visualized. Pericardium No pericardial effusion.echo free space anterior to the right ventricle likely represents a fat pad. Aorta Aortic annulus normal. CONCLUSIONS Technically difficult study. Definity ECHO contrast used for improved visualization of the endocardial borders (inadequate visualization of two or more contiguous segments). Normal left ventricular size and systolic function, no clear segmental wall motion abnormality Very limited Doppler study Previewed by: Dr. Glen Barrera MD (Electronically Signed) Final Date: 01 May 2025 11:59
--- NOTE | 2025-05-01 12:55 | P.PN ---
Subjective HISTORY OF PRESENT ILLNESS: This is an 79-year-old female who follows in the office with Dr. Castillo. Patient is admitted to the hospital secondary to cellulitis. Cardiology was consulted for possible atrial fibrillation. However there has been no evidence of atrial fibrillation. She is maintaining sinus mechanism. She is mildly tachycardic t his morning with a heart rate of 105. Blood pressure is stable. She denies chest pain or shortness of breath. Echocardiogram completed revealing ejection fraction 55 to 60%, moderate concentric LVH, mild pulmonary hypertension, trace TR PHYSICAL EXAM: VITAL SIGNS: Reviewed. GENERAL: Well-developed in no acute distress. NECK: Supple. No JVD or thyromegaly LUNGS: Respirations even and unlabored. Lungs essentially clear to auscultation bilaterally. HEART: Mildly tachycardic. Regular rate and rhythm. S1 and S2 heard. EXTREMITIES: Normal range of motion. No clubbing or cyanosis. Peripheral pulses intact. No lower extremity edema ASSESSMENT: Sepsis Community-acquired pneumonia Right upper extremity cellulitis Sinus tachycardia Atrial fibrillation, ruled out Chronic heart failure with preserved EF, currently euvolemic History of DVT/PE, on Eliquis outpatient Morbid obesity: BMI 40.6 PLAN: Increase metoprolol succinate to 50 mg twice a day Continue additional cardiac medications including Eliquis and Lipitor Continue telemetry monitoring Continue antibiotics per infectious disease Patient to follow-up postdischarge in the office with Dr. Castillo Nurse practitioner note has been reviewed by physician. Signing provider agrees with the documented findings, assessment, and plan of care documented by FORK TRUCK OPERATOR as a scribe. Objective - Vital Signs Vital signs: Vital Signs Temp 99.1 F 05/01/25 11:49 Pulse 102 H 05/01/25 11:49 Resp 18 05/01/25 11:49 BP 122/74 05/01/25 11:49 Pulse Ox 100 05/01/25 11:49 FiO2 Intake & Output 04/30/25 05/01/25 05/01/25 18:59 06:59 18:59 Intake Total 240 210 Output Total 800 Balance -560 210 Weight 99.79 kg 104 kg Intake: IV 10 Invasive Line 2 10 Oral 240 200 Output: Urine 800 Other: Voiding Method Bedpan Bedpan Diaper Diaper Incontinent # Voids 2 1 # Bowel Movements 2 - Labs CBC & Chem 7: 04/30/25 02:05 05/01/25 06:33 Labs: Abnormal Lab Results - Last 24 Hours (Table) 04/30/25 04/30/25 04/30/25 Range/Units 02:04 16:41 17:04 POC Glucose (mg/dL) 120 H (70-110) mg/dL Plasma Lactic Acid Bart 4.1 H* (0.7-2.0) mmol/L Mycoplasma pneumon IgG 1.13 H (<=0.90) INDEX 04/30/25 05/01/25 Range/Units 20:10 01:06 POC Glucose (mg/dL) (70-110) mg/dL Plasma Lactic Acid Bart 4.3 H* 2.6 H* (0.7-2.0) mmol/L Mycoplasma pneumon IgG (<=0.90) INDEX Microbiology - Last 24 Hours (Table) 04/29/25 20:48 Blood Culture - Preliminary Blood
[2025-05-01 15:09] LABS: HCT 43.9 % (37.2-46.3); HGB 14.6 g/dL (12.0-15.0); MCH 34.7 pg (27.0-32.0); MCHC 33.3 g/dL (32.0-37.0); MCV 104.3 fL (80.0-97.0); Mean Platelet Volume 11.9 fL (9.5-12.2); Platelet Count 172 10*3/uL (140-440); RBC 4.21 10*6/uL (4.10-5.20); RDW 13.1 % (11.5-14.5); WBC 40.81 10*3/uL (4.50-10.00)
--- NOTE | 2025-05-01 16:26 | P.PN ---
Subjective Progress Note Date: 05/01/25 This is a very pleasant 79-year-old female patient with known history of COPD and tracheobronchomalacia who is coming into the hospital feeling weak and fatigued and tired and worn out. Immediately, the patient was noted to have a right upper extremity cellulitis above the elbow extending to the shoulder. The patient has significant leukocytosis with a white cell count of 35 with a hemoglobin of 16 and a platelet count of 177. Electrolytes are all within normal limits. Initial lactic acid level was up to 5.2 and it dropped down to 2.5 with fluids and antibiotics were also started. UA is negative. proBNP is 926. Troponins are negative. Electrolytes are all within normal limits. Normal renal function. Normal LFTs. Cultures were sent. The patient was started on IV cefepime and vancomycin. She has a dry skin and she has been scratching and she has developed some superficial ulceration in the skin in her right upper extremity. No altered mentation. The patient is currently on 4 L o f oxygen by nasal cannula with a pulse ox of 99%. No altered mentation. She is in sinus tachycardia. She has diastolic heart failure and there is no signs of any exacerbation. The patient is seen today May 01, 2025 in follow-up on the selective care unit. She is currently sitting up in a chair at the bedside. Awake and alert in no acute distress. Maintaining O2 saturations in the 90s on 3 L/min per nasal cannula. She has been afebrile. Hemodynamically stable. Echocardiogram reveals preserved left ventricular systolic function with an ejection fraction of 55 to 60%. No significant valvular abnormalities. Technically difficult study. Blood culture pending. White count 40.8. Hemoglobin 14.6. Platelets 172. Creatinine 0.78. Glucose 72. Lactic acid 2.0. She remains on cefepime and vancomycin. Continued on DuoNeb inhalations, Solu-Medrol, Pulmicort. Anticoagulated with Eliquis Objective - Vital Signs Vital signs: Vital Signs Temp 98.4 F 05/01/25 15:17 Pulse 94 05/01/25 15:42 Resp 16 05/01/25 15:42 BP 116/60 05/01/25 15:17 Pulse Ox 95 05/01/25 15:17 FiO2 Intake & Output 06/08/25 06/09/25 06/09/25 18:59 06:59 18:59 Intake Total 240 770 Output Total 800 Balance -560 770 Weight 99.79 kg 104 kg Intake: IV 30 Invasive Line 2 10 Invasive Line 3 10 Invasive Line 4 10 Oral 240 740 Output: Urine 800 Other: Voiding Method Bedpan Bedpan Diaper Diaper Incontinent # Voids 2 1 # Bowel Movements 2 1 - Exam GENERAL EXAM: Alert, oriented, obese 79-year-old female, up in a chair, on 3 L nasal cannula, comfortable in no apparent distress. HEAD: Normocephalic. EYES: Normal reaction of pupils, equal size. NOSE: Clear with pink turbinates. THROAT: No erythema or exudates. NECK: No masses, no JVD. CHEST: No chest wall deformity. LUNGS: Equal air entry with bilateral end expiratory wheeze. CVS: S1 and S2 normal with no audible murmur, regular rhythm. ABDOMEN: No hepatosplenomegaly, normal bowel sounds, no guarding or rigidity. SPINE: No scoliosis or deformity SKIN: No rashes CENTRAL NERVOUS SYSTEM: No focal deficits, tone is normal in all 4 extremities. EXTREMITIES: Cellulitis of the right upper extremity. There is no peripheral edema. No clubbing, no cyanosis. Peripheral pulses are intact. - Labs CBC & Chem 7: 05/01/25 14:57 05/01/25 06:33 Labs: Abnormal Lab Results - Last 24 Hours (Table) 04/30/25 04/30/25 04/30/25 Range/Units 02:04 16:41 17:04 WBC (4.50-10.00) 10*3/uL MCV (80.0-97.0) fL MCH (27.0-32.0) pg POC Glucose (mg/dL) 120 H (70-110) mg/dL Plasma Lactic Acid Bart 4.1 H* (0.7-2.0) mmol/L Mycoplasma pneumon IgG 1.13 H (<=0.90) INDEX 04/30/25 05/01/25 05/01/25 Range/Units 20:10 01:06 14:57 WBC 40.81 H (4.50-10.00) 10*3/uL MCV 104.3 H (80.0-97.0) fL MCH 34.7 H (27.0-32.0) pg POC Glucose (mg/dL) (70-110) mg/dL Plasma Lactic Acid Bart 4.3 H* 2.6 H* (0.7-2.0) mmol/L Mycoplasma pneumon IgG (<=0.90) INDEX Microbiology - Last 24 Hours (Table) 04/29/25 20:48 Blood Culture - Preliminary Blood Assessment and Plan Assessment: Acute cellulitis of the right upper extremity. Currently on vancomycin and cefepime Acute sepsis secondary to above Acute leukocytosis secondary to above Acute lactic acidosis secondary to above, improving Acute exacerbation of COPD/asthma with a component of tracheobronchomalacia Acute hypoxic respiratory failure secondary to above, currently on 3 L nasal cannula Sinus tachycardia secondary to above, improved Obesity with a BMI of 40.6 kg/m Polymyalgia rheumatica Hypertension Hypothyroidism Previous history of pulmonary embolism, maintained on long-term anticoagulation with Eliquis Scoliosis Plan: The patient was seen and evaluated Labs and medications reviewed Echocardiogram reviewed Continue vancomycin and cefepime Continue DuoNeb and elations Continue Pulmicort inhalations Add Perforomist inhalations Continue Solu-Medrol Continue Flagyl Titrate down the FiO2 as tolerated Increase activity as tolerated We will continue to follow I have personally seen and examined the patient, performed the documentation and the assessment and plan as written. Number of minutes spent on the visit: 10 Dictation was produced using [employer] dictation software. Please excuse any grammatical, word or spelling errors.
[2025-05-01 16:34] LABS: Glucose,Whole Blood 127 mg/dL (70-110)
[2025-05-01] MEDS: FUROSEMIDE 10 MG/ML 2 ML VIAL IV ONE (16:41)
--- NOTE | 2025-05-01 16:44 | P.PN ---
Subjective Progress Note Date: 05/01/25 Patient was seen and examined. RUE redness and swelling improving slowly. Antibiotics include Vancomycin dosed per pharmacy, Flagyl 500 mg PO TID and Cefepime 2g IV BID. Patient reports multiple bowel movements overnight along with projectile vomiting which has since slowed down. CBC shows WBC 40.81, MCV 104.3. Renal function within normal limits. Lactic acid 2. Echo EF 55-60% mild concentric LVH and no regional wall motion abnormalities. General: no distress, appears at stated age Derm: warm, dry Head: atraumatic, normocephalic, symmetric Mouth: no lip lesion, mucus membranes moist Cardiovascular: S1 S2 reg No murmur. Lungs: Decreased BS bilaterally, no accessory muscle use Ext: RUE erythema and swelling improved slightly from outline. Neuro: No focal neurologic deficits. Psych: Alert and oriented. Based on my assessment of this patient, this patient meets a high complexity level of care. Sepsis secondary to RUE cellulitis: Decrease LR from 130 to 50 cc/hr. Vancomycin dosed per pharmacy (monitor renal function daily). Cefepime 2g IV BID. BCx prelim neg. Acute on chronic hypoxic hypercapnic respiratory failure secondary to possible CAP and COPD exacerbation: Pulmicort 1 mg INH BID. Perforomist 20 mcg INH BID. DuoNeb QID + Q2H PRN SOB/wheezing. SoluMedrol 40 mg IV TID. Fecal impaction: Lactulose 20g PO BID. Miralax 17g PO QD. Sinus tachycardia: Metoprolol 50 mg PO BID. Chronic diastolic heart failure: Lasix 20 mg PO BID. Metoprolol as above. History of DVT/PE: Eliquis 5 mg PO BID. Hypothyroidism: TSH 0.453 FT4 1.98. Continue Synthroid CODE STATUS: FULL CODE DVT Prophylaxis: Eliquis GI Prophylaxis: Designated medical POA if patient is not able to make medical decisions for themselves: I have reviewed the following middleware consultant notes: Pulmonary, Cardio. I have reviewed the results of the following tests: CBC, renal function, Echo, Lactic acid. I have ordered the following tests: CBC, renal function in the AM. I have discussed the care of this patient with the following independent historian: RN. Hodges. I have independently interpreted the following test below: I have discussed the management of this patient with the following physician: Objective - Vital Signs Vital signs: Vital Signs Temp 98.4 F 05/01/25 15:17 Pulse 94 05/01/25 15:42 Resp 16 05/01/25 15:42 BP 116/60 05/01/25 15:17 Pulse Ox 95 05/01/25 15:17 FiO2 Intake & Output 04/30/25 05/01/25 05/01/25 18:59 06:59 18:59 Intake Total 240 770 Output Total 800 Balance -560 770 Weight 99.79 kg 104 kg Intake: IV 30 Invasive Line 2 10 Invasive Line 3 10 Invasive Line 4 10 Oral 240 740 Output: Urine 800 Other: Voiding Method Bedpan Bedpan Diaper Diaper Incontinent # Voids 2 1 # Bowel Movements 2 1 - Labs CBC & Chem 7: 05/01/25 14:57 05/01/25 06:33 Labs: Abnormal Lab Results - Last 24 Hours (Table) 04/30/25 04/30/25 04/30/25 Range/Units 02:04 16:41 17:04 WBC (4.50-10.00) 10*3/uL MCV (80.0-97.0) fL MCH (27.0-32.0) pg POC Glucose (mg/dL) 120 H (70-110) mg/dL Plasma Lactic Acid Bart 4.1 H* (0.7-2.0) mmol/L Mycoplasma pneumon IgG 1.13 H (<=0.90) INDEX 04/30/25 05/01/25 05/01/25 Range/Units 20:10 01:06 14:57 WBC 40.81 H (4.50-10.00) 10*3/uL MCV 104.3 H (80.0-97.0) fL MCH 34.7 H (27.0-32.0) pg POC Glucose (mg/dL) (70-110) mg/dL Plasma Lactic Acid Bart 4.3 H* 2.6 H* (0.7-2.0) mmol/L Mycoplasma pneumon IgG (<=0.90) INDEX Microbiology - Last 24 Hours (Table) 04/29/25 20:48 Blood Culture - Preliminary Blood
[2025-05-01] MEDS: MELATONIN 3 MG TABLET PO PRN (19:47)
[2025-05-01 20:25] LABS: Glucose,Whole Blood 132 mg/dL (70-110)
[2025-05-01] MEDS: BUDESONIDE 0.5 MG/2 ML NEBU INHALATION SCH (21:38)
[2025-05-01] MEDS: FORMOTEROL FUMARATE 20 MCG/2 ML NEBU INHALATION SCH (21:38)
[2025-05-02 05:51] LABS: Glucose,Whole Blood 134 mg/dL (70-110)
[2025-05-02 07:10] LABS: HCT 41.3 % (37.2-46.3); HGB 13.7 g/dL (12.0-15.0); MCH 33.7 pg (27.0-32.0); MCHC 33.2 g/dL (32.0-37.0); MCV 101.5 fL (80.0-97.0); Mean Platelet Volume 12.3 fL (9.5-12.2); Platelet Count 194 10*3/uL (140-440); RBC 4.07 10*6/uL (4.10-5.20); RDW 12.7 % (11.5-14.5); WBC 31.23 10*3/uL (4.50-10.00)
[2025-05-02 07:38] LABS: African American GFR (CKD) >90 (>60 ml/min/1.73 sqM); Non-African American GFR(CKD) 82 (>60 ml/min/1.73 sqM)
[2025-05-02] MEDS: FUROSEMIDE 20 MG TAB PO SCH (09:23)
--- NOTE | 2025-05-02 10:41 | P.PN ---
Subjective HISTORY OF PRESENT ILLNESS: This is an 79-year-old female who follows in the office with Dr. Castillo. Patient is admitted to the hospital secondary to cellulitis. Cardiology was consulted for possible atrial fibrillation. However there has been no evidence of atrial fibrillation. She is maintaining sinus mechanism. She is mildly tachycardic t his morning with a heart rate of 105. Blood pressure is stable. She denies chest pain or shortness of breath. Echocardiogram completed revealing ejection fraction 55 to 60%, moderate concentric LVH, mild pulmonary hypertension, trace TR. 05/02/2025 Patient seen and examined sitting up in the chair in no acute distress. She continues to wheeze and is getting nebulizers regularly. Laboratory data reviewed, hemoglobin 13.7, platelets 194. Blood pressure 146/81 heart rate 94 afebrile maintaining oxygen saturation on nasal cannula. Telemetry tracings reviewed, maintaining sinus mechanism heart rate in the 80s. PHYSICAL EXAM: GENERAL: Well-developed in no acute distress. NECK: Supple. No JVD or thyromegaly LUNGS: Respirations even and unlabored. Lungs essentially clear to auscultation bilaterally. HEART: Mildly tachycardic. Regular rate and rhythm. S1 and S2 heard. EXTREMITIES: Normal range of motion. No clubbing or cyanosis. Peripheral pulses intact. No lower extremity edema ASSESSMENT: Sepsis Community-acquired pneumonia Right upper extremity cellulitis Sinus tachycardia Atrial fibrillation, ruled out Chronic heart failure with preserved EF, currently euvolemic History of DVT/PE, on [facility] outpatient Morbid obesity: BMI 40.6 PLAN: Resume Synthroid at 100 mcg daily. Continue antibiotics per infectious disease Patient to follow-up post discharge in the office with Dr. Castillo Nurse practitioner note has been reviewed by physician. Signing provider agrees with the documented findings, assessment, and plan of care documented by [employer] as a scribe. Objective - Vital Signs Vital signs: Vital Signs Temp 98.4 F 05/02/25 09:02 Pulse 94 05/02/25 09:02 Resp 16 05/02/25 09:02 BP 146/81 05/02/25 09:02 Pulse Ox 97 05/02/25 09:02 FiO2 Intake & Output 05/01/25 05/02/25 05/02/25 18:59 06:59 18:59 Intake Total 770 Output Total 400 900 Balance 370 -900 Weight 103 kg Intake: IV 30 Invasive Line 2 10 Invasive Line 3 10 Invasive Line 4 10 Oral 740 Output: Urine 400 900 Other: Voiding Method Bedpan Bedside Commode Diaper Diaper # Voids 1 1 # Bowel Movements 1 - Labs CBC & Chem 7: 05/02/25 06:13 05/02/25 06:13 Labs: Abnormal Lab Results - Last 24 Hours (Table) 05/01/25 05/01/25 05/01/25 Range/Units 14:57 16:31 20:24 WBC 40.81 H (4.50-10.00) 10*3/uL RBC (4.10-5.20) 10*6/uL MCV 104.3 H (80.0-97.0) fL MCH 34.7 H (27.0-32.0) pg MPV (9.5-12.2) fL POC Glucose (mg/dL) 127 H 132 H (70-110) mg/dL 05/02/25 05/02/25 Range/Units 05:49 06:13 WBC 31.23 H (4.50-10.00) 10*3/uL RBC 4.07 L (4.10-5.20) 10*6/uL MCV 101.5 H (80.0-97.0) fL MCH 33.7 H (27.0-32.0) pg MPV 12.3 H (9.5-12.2) fL POC Glucose (mg/dL) 134 H (70-110) mg/dL Microbiology - Last 24 Hours (Table) 04/29/25 20:48 Blood Culture - Preliminary Blood
[2025-05-02 11:39] LABS: Glucose,Whole Blood 110 mg/dL (70-110)
--- NOTE | 2025-05-02 12:25 | P.PN ---
Subjective Progress Note Date: 05/02/25 Patient was seen and examined. RUE redness and swelling improving slowly. She complains of shortness of breath and persistent nausea but no more vomiting. Antibiotics include Vancomycin dosed per pharmacy, Flagyl 500 mg PO TID and Cefepime 2g IV BID. CBC shows WBC 31.23, RBC 4.07, MCV 101.5. Renal function within normal limits. General: no distress, appears at stated age Derm: warm, dry Head: atraumatic, normocephalic, symmetric Mouth: no lip lesion, mucus membranes moist Cardiovascular: S1 S2 reg No murmur. Lungs: Decreased BS bilaterally, no accessory muscle use Ext: RUE erythema and swelling improved slightly from outline. Neuro: No focal neurologic deficits. Psych: Alert and oriented. Based on my assessment of this patient, this patient meets a high complexity level of care. Sepsis secondary to RUE cellulitis: Continue LR 50 cc/hr. Vancomycin dosed per pharmacy (monitor renal function daily). Cefepime 2g IV BID. BCx prelim neg. Acute on chronic hypoxic hypercapnic respiratory failure secondary to possible CAP and COPD exacerbation: Pulmicort 1 mg INH BID. Perforomist 20 mcg INH BID. DuoNeb QID + Q2H PRN SOB/wheezing. SoluMedrol switched to Prednisone 40 mg PO QD. Fecal impaction: Lactulose 20g PO BID. Miralax 17g PO QD. Sinus tachycardia: Echo EF 55-60% mild concentric LVH and no regional wall motion abnormalities. Metoprolol 50 mg PO BID. Chronic diastolic heart failure: Lasix 20 mg PO BID. Metoprolol as above. History of DVT/PE: Eliquis 5 mg PO BID. Hypothyroidism: TSH 0.453 FT4 1.98. Continue Synthroid 100 mcg PO QD. Nausea could be related to Flagyl. Continue IV antibiotics per ID recommendation. Still with significant RUE cellulitis though slowly improving. She is pending clinical improvement. CODE STATUS: FULL CODE DVT Prophylaxis: Eliquis GI Prophylaxis: Protonix PO Designated medical POA if patient is not able to make medical decisions for themselves: I have reviewed the following trial consultant notes: Pulmonary, Cardio. I have reviewed the results of the following tests: CBC, renal function. I have ordered the following tests: CBC, renal function in the AM. I have discussed the care of this patient with the following independent historian: Family at bedside. I have independently interpreted the following test below: I have discussed the management of this patient with the following physician: Objective - Vital Signs Vital signs: Vital Signs Temp 98.7 F 05/02/25 11:15 Pulse 83 05/02/25 11:54 Resp 14 05/02/25 11:15 BP 143/84 05/02/25 11:15 Pulse Ox 98 05/02/25 11:15 FiO2 Intake & Output 05/01/25 05/02/25 05/02/25 18:59 06:59 18:59 Intake Total 770 Output Total 400 900 Balance 370 -900 Weight 103 kg Intake: IV 30 Invasive Line 2 10 Invasive Line 3 10 Invasive Line 4 10 Oral 740 Output: Urine 400 900 Other: Voiding Method Bedpan Bedside Commode Diaper Diaper # Voids 1 1 # Bowel Movements 1 - Labs CBC & Chem 7: 05/02/25 06:13 05/02/25 06:13 Labs: Abnormal Lab Results - Last 24 Hours (Table) 05/01/25 05/01/25 05/01/25 Range/Units 14:57 16:31 20:24 WBC 40.81 H (4.50-10.00) 10*3/uL RBC (4.10-5.20) 10*6/uL MCV 104.3 H (80.0-97.0) fL MCH 34.7 H (27.0-32.0) pg MPV (9.5-12.2) fL POC Glucose (mg/dL) 127 H 132 H (70-110) mg/dL 05/02/25 05/02/25 Range/Units 05:49 06:13 WBC 31.23 H (4.50-10.00) 10*3/uL RBC 4.07 L (4.10-5.20) 10*6/uL MCV 101.5 H (80.0-97.0) fL MCH 33.7 H (27.0-32.0) pg MPV 12.3 H (9.5-12.2) fL POC Glucose (mg/dL) 134 H (70-110) mg/dL Microbiology - Last 24 Hours (Table) 04/30/25 10:58 Nasal Screen MRSA/MSSA - Final Nasal Swab 04/29/25 20:48 Blood Culture - Preliminary Blood
--- NOTE | 2025-05-02 13:27 | P.PN ---
Subjective Progress Note Date: 05/02/25 Principal diagnosis: Acute right upper extremity cellulitis and acute exacerbation of COPD/asthma This is a very pleasant 79-year-old female patient with known history of COPD an d tracheobronchomalacia who is coming into the hospital feeling weak and fatigued and tired and worn out. Immediately, the patient was noted to have a right upper extremity cellulitis above the elbow extending to the shoulder. The patient has significant leukocytosis with a white cell count of 35 with a hemoglobin of 16 and a platelet count of 177. Electrolytes are all within normal limits. Initial lactic acid level was up to 5.2 and it dropped down to 2.5 with fluids and antibiotics were also started. UA is negative. proBNP is 926. Troponins are negative. Electrolytes are all within normal limits. Normal renal function. Normal LFTs. Cultures were sent. The patient was started on IV cefepime and vancomycin. She has a dry skin and she has been scratching and she has developed some superficial ulceration in the skin in her right upper extremity. No altered mentation. The patient is currently on 4 L of oxygen by nasal cannula with a pulse ox of 99%. No altered mentation. She is in sinus tachycardia. She has diastolic heart failure and there is no signs of any exacerbation. The patient is seen today May 01, 2025 in follow-up on the selective care unit. She is currently sitting up in a chair at the bedside. Awake and alert in no acute distress. Maintaining O2 saturations in the 90s on 3 L/min per nasal cannula. She has been afebrile. Hemodynamically stable. Echocardiogram reveals preserved left ventricular systolic function with an ejection fraction of 55 to 60%. No significant valvular abnormalities. Technically difficult study. Blood culture pending. White count 40.8. Hemoglobin 14.6. Platelets 172. Creatinine 0.78. Glucose 72. Lactic acid 2.0. She remains on cefepime and vancomycin. Continued on DuoNeb inhalations, Solu-Medrol, Pulmicort. Anticoagulated with Eliquis Seen today on 05/02/2025, patient is not doing well today, she has generalized aches and pains, shortness of breath, intermittent cough and wheezing, painful right upper extremity, patient is being treated for her cellulitis of the right upper extremity, she is also being treated for her underlying COPD/asthma with multiple bronchodilators, she is also on cefepime and vancomycin as well as steroids and Pulmicort she is anticoagulated with Eliquis. Today's WBC is 31.2, hemoglobin 13.7, improving compared to 40.8 yesterday and 43.4 the day before. Chest x-ray on 04/30 showed no acute process. Today the patient has scattered rhonchi and wheezes on physical examination. But she is on maximal therapy for COPD/asthma. Objective - Vital Signs Vital signs: Vital Signs Temp 98.7 F 05/02/25 11:15 Pulse 83 05/02/25 11:54 Resp 14 05/02/25 11:15 BP 143/84 05/02/25 11:15 Pulse Ox 98 05/02/25 11:15 FiO2 Intake & Output 05/01/25 05/02/25 05/02/25 18:59 06:59 18:59 Intake Total 770 Output Total 400 900 Balance 370 -900 Weight 103 kg Intake: IV 30 Invasive Line 2 10 Invasive Line 3 10 Invasive Line 4 10 Oral 740 Output: Urine 400 900 Other: Voiding Method Bedpan Bedside Commode Diaper Diaper # Voids 1 1 # Bowel Movements 1 - Exam GENERAL EXAM: 79-year-old female in no distress, obese centimeters nasal cannula HEAD: Normocephalic. EYES: Normal reaction of pupils, equal size. NOSE: Clear with pink turbinates. THROAT: No erythema or exudates. NECK: No masses, no JVD. CHEST: No chest wall deformity. LUNGS: Wheezing bilaterally more so on forced expiratory maneuver. CVS: S1 and S2 normal with no audible murmur, regular rhythm. ABDOMEN: No hepatosplenomegaly, normal bowel sounds, no guarding or rigidity. SKIN: Extensive erythema involving the upper portion of the right upper extremity/cellulitis of right arm CENTRAL NERVOUS SYSTEM: Alert oriented x 3 no focal deficit EXTREMITIES: Cellulitis of the right upper extremity.No clubbing edema or cyanosis. - Labs CBC & Chem 7: 05/02/25 06:13 05/02/25 06:13 Labs: Abnormal Lab Results - Last 24 Hours (Table) 05/01/25 05/01/25 05/01/25 Range/Units 14:57 16:31 20:24 WBC 40.81 H (4.50-10.00) 10*3/uL RBC (4.10-5.20) 10*6/uL MCV 104.3 H (80.0-97.0) fL MCH 34.7 H (27.0-32.0) pg MPV (9.5-12.2) fL POC Glucose (mg/dL) 127 H 132 H (70-110) mg/dL 05/02/25 05/02/25 Range/Units 05:49 06:13 WBC 31.23 H (4.50-10.00) 10*3/uL RBC 4.07 L (4.10-5.20) 10*6/uL MCV 101.5 H (80.0-97.0) fL MCH 33.7 H (27.0-32.0) pg MPV 12.3 H (9.5-12.2) fL POC Glucose (mg/dL) 134 H (70-110) mg/dL Microbiology - Last 24 Hours (Table) 04/30/25 10:58 Nasal Screen MRSA/MSSA - Final Nasal Swab 04/29/25 20:48 Blood Culture - Preliminary Blood Assessment and Plan Assessment: Impression: Acute cellulitis of the right upper extremity. Currently on vancomycin and cefepime Acute sepsis secondary to above Acute leukocytosis secondary to above Acute lactic acidosis secondary to above, improving Acute exacerbation of COPD/asthma with a component of tracheobronchomalacia Acute hypoxic respiratory failure secondary to above, currently on 3 L nasal cannula Sinus tachycardia secondary to above, improved Obesity with a BMI of 40.6 kg/m Polymyalgia rheumatica Hypertension Hypothyroidism Previous history of pulmonary embolism, maintained on long-term anticoagulation with Eliquis Scoliosis Recommendation: Continue present course of antibiotics including cefepime and vancomycin Continue bronchodilators and steroids Continue Eliquis Continue Lasix 20 mg twice daily Not ready for any discharge planning We will continue to follow Time with Patient: Less than 30
[2025-05-02 16:34] LABS: Glucose,Whole Blood 149 mg/dL (70-110)
--- NOTE | 2025-05-02 16:40 | P.PN ---
Subjective Progress Note Date: 05/01/25 Principal diagnosis: Reason for follow-up is right upper extremity cellulitis and pneumonia Patient is a 79-year-old female with a past medical history significant for Asthma, Heart Failure, Hypertension, Pulmonary Embolus (PE), Renal Disease, Thyroid Disorder, patient has been brought into the hospital concerning for weakness increasing shortness of breath and the patient also complaining of increasing swelling redness, has been diagnosed with right upper extremity cellulitis and concern for pneumonia. On today's evaluation that is 05/01/2025, patient has been afebrile, patient is breathing comfortably and is currently on 2 L nasal cannula oxygen, patient reese es having any chest pain and cough slightly decreased in intensity, patient denies nausea vomiting or diarrhea and no abdominal pain, right upper extremity swelling redness has decreased. Patient white count slightly down to 40.81 creatinine 0.78 lactic acid 2.0 blood cultures pending Objective - Vital Signs Vital signs: Vital Signs Temp 99.1 F 05/01/25 11:49 Pulse 102 H 05/01/25 11:49 Resp 18 05/01/25 11:49 BP 122/74 05/01/25 11:49 Pulse Ox 100 05/01/25 11:49 FiO2 Intake & Output 04/30/25 05/01/25 05/01/25 18:59 06:59 18:59 Intake Total 240 770 Output Total 800 Balance -560 770 Weight 99.79 kg 104 kg Intake: IV 30 Invasive Line 2 10 Invasive Line 3 10 Invasive Line 4 10 Oral 240 740 Output: Urine 800 Other: Voiding Method Bedpan Bedpan Diaper Diaper Incontinent # Voids 2 1 # Bowel Movements 2 1 - Exam GENERAL DESCRIPTION: An elderly up in the chair in no distress RESPIRATORY SYSTEM: Unlabored breathing , decreased breath sounds at bases HEART: S1 S2 regular rate and rhythm , ABDOMEN: Soft , no tenderness EXTREMITIES: Right upper extremity swelling redness slightly decreased - Labs CBC & Chem 7: 05/02/25 06:13 05/02/25 06:13 Labs: Abnormal Lab Results - Last 24 Hours (Table) 04/30/25 04/30/25 04/30/25 Range/Units 02:04 16:41 17:04 POC Glucose (mg/dL) 120 H (70-110) mg/dL Plasma Lactic Acid Bart 4.1 H* (0.7-2.0) mmol/L Mycoplasma pneumon IgG 1.13 H (<=0.90) INDEX 04/30/25 05/01/25 Range/Units 20:10 01:06 POC Glucose (mg/dL) (70-110) mg/dL Plasma Lactic Acid Bart 4.3 H* 2.6 H* (0.7-2.0) mmol/L Mycoplasma pneumon IgG (<=0.90) INDEX Microbiology - Last 24 Hours (Table) 04/29/25 20:48 Blood Culture - Preliminary Blood Assessment and Plan (1) Sepsis Current Visit: Yes Status: Acute Code(s): A41.9 - SEPSIS, UNSPECIFIED ORGANISM SNOMED Code(s): 19137715 (2) Right arm cellulitis Current Visit: Yes Status: Acute Code(s): L03.113 - CELLULITIS OF RIGHT UPPER LIMB SNOMED Code(s): 21844966993974539 Plan: 1patient presented to hospital with sepsis in this patient who did have a low- grade fever patient did have tachycardia elevated white count elevated lactic acid meeting currently for SIRS/sepsis source is likely a combination of right upper extremity cellulitis plus minus abdominal source as the patient did have evidence of significant stool retention on CT, unfortunately CT was done without any contrast that limit the sensitivity of that testing 2patient is afebrile white count still significantly elevated but trending down blood cultures are pending 3will continue the patient on cefepime and vancomycin while waiting for the culture to finalize Dictation was produced using [employer] dictation software. please excuse any grammatical, word or spelling errors. Time with Patient: Less than 30
--- NOTE | 2025-05-02 16:41 | P.PN ---
Subjective Progress Note Date: 05/02/25 Principal diagnosis: Reason for follow-up is right upper extremity cellulitis and pneumonia Patient is a 79-year-old female with a past medical history significant for Asthma, Heart Failure, Hypertension, Pulmonary Embolus (PE), Renal Disease, Thyroid Disorder, patient has been brought into the hospital concerning for weakness increasing shortness of breath and the patient also complaining of increasing swelling redness, has been diagnosed with right upper extremity cellulitis and concern for pneumonia. On today's evaluation that is 05/02/2025, Patient is afebrile this morning patient denies having any chest pain shortness of breath or any worsening cough, the patient is currently on 2 L nasal oxygen, patient denies any abdominal pain no diarrhea no nausea no vomiting, still has swelling to the right upper extremity redness slightly decreased. Patient white count is down to 31.23 creatinine 0.69 blood cultures currently pending sputum is pending Objective - Vital Signs Vital signs: Vital Signs Temp 98.2 F 05/02/25 15:14 Pulse 99 05/02/25 16:13 Resp 16 05/02/25 15:14 BP 155/85 05/02/25 15:14 Pulse Ox 96 05/02/25 15:14 FiO2 Intake & Output 05/01/25 05/02/25 05/02/25 18:59 06:59 18:59 Intake Total 770 Output Total 400 1200 Balance 370 -1200 Weight 103 kg Intake: IV 30 Invasive Line 2 10 Invasive Line 3 10 Invasive Line 4 10 Oral 740 Output: Urine 400 1200 Other: Voiding Method Bedpan Bedside Commode Bedside Commode Diaper Diaper Diaper # Voids 1 1 # Bowel Movements 1 - Exam GENERAL DESCRIPTION: An elderly up in the chair in no distress RESPIRATORY SYSTEM: Unlabored breathing , decreased breath sounds at bases HEART: S1 S2 regular rate and rhythm , ABDOMEN: Soft , no tenderness EXTREMITIES: Right upper extremity swelling redness slightly decreased - Labs CBC & Chem 7: 05/02/25 06:13 05/02/25 06:13 Labs: Abnormal Lab Results - Last 24 Hours (Table) 05/01/25 05/02/25 05/02/25 Range/Units 20:24 05:49 06:13 WBC 31.23 H (4.50-10.00) 10*3/uL RBC 4.07 L (4.10-5.20) 10*6/uL MCV 101.5 H (80.0-97.0) fL MCH 33.7 H (27.0-32.0) pg MPV 12.3 H (9.5-12.2) fL POC Glucose (mg/dL) 132 H 134 H (70-110) mg/dL 05/02/25 Range/Units 16:32 WBC (4.50-10.00) 10*3/uL RBC (4.10-5.20) 10*6/uL MCV (80.0-97.0) fL MCH (27.0-32.0) pg MPV (9.5-12.2) fL POC Glucose (mg/dL) 149 H (70-110) mg/dL Microbiology - Last 24 Hours (Table) 05/02/25 06:55 Gram Stain - Preliminary Sputum 04/30/25 10:58 Nasal Screen MRSA/MSSA - Final Nasal Swab 04/29/25 20:48 Blood Culture - Preliminary Blood Assessment and Plan (1) Sepsis Current Visit: Yes Status: Acute Code(s): A41.9 - SEPSIS, UNSPECIFIED ORGANISM SNOMED Code(s): 02040888 (2) Right arm cellulitis Current Visit: Yes Status: Acute Code(s): L03.113 - CELLULITIS OF RIGHT UPPER LIMB SNOMED Code(s): 59951445215930044 Plan: 1patient presented to hospital with sepsis in this patient who did have a low- grade fever patient did have tachycardia elevated white count elevated lactic acid meeting currently for SIRS/sepsis source is likely a combination of right upper extremity cellulitis plus minus abdominal source as the patient did have evidence of significant stool retention on CT, unfortunately CT was done without any contrast that limit the sensitivity of that testing 2patient is afebrile white count down to 31,000, blood cultures pending sputum cultures currently pending 3patient did have some improvement clinically to continue cefepime and vancomycin while waiting for the culture to finalize Dictation was produced using [employer] dictation software. please excuse any grammatical, word or spelling errors.
[2025-05-02 20:28] LABS: Glucose,Whole Blood 132 mg/dL (70-110)
[2025-05-03 06:03] LABS: Glucose,Whole Blood 106 mg/dL (70-110)
[2025-05-03] MEDS: PANTOPRAZOLE 40 MG TABLET PO SCH (06:20)
[2025-05-03] MEDS: LEVOTHYROXINE 100 MCG TAB PO SCH (06:20)
[2025-05-03 07:32] LABS: HCT 41.9 % (37.2-46.3); HGB 14.2 g/dL (12.0-15.0); MCHC 33.9 g/dL (32.0-37.0); MCV 100.2 fL (80.0-97.0); Mean Platelet Volume 12.4 fL (9.5-12.2); Platelet Count 146 10*3/uL (140-440); RBC 4.18 10*6/uL (4.10-5.20); RDW 12.9 % (11.5-14.5); WBC 24.83 10*3/uL (4.50-10.00)
[2025-05-03 07:51] LABS: African American GFR (CKD) >90 (>60 ml/min/1.73 sqM); Anion Gap 4 mmol/L; Blood Urea Nitrogen 22 mg/dL (7-17); Carbon Dioxide 25 mmol/L (22-30); Chloride 109 mmol/L (98-107); Glucose 104 mg/dL (74-99); Non-African American GFR(CKD) 84 (>60 ml/min/1.73 sqM); Sodium 138 mmol/L (137-145)
[2025-05-03] MEDS: BUDESONIDE 1 MG/2 ML NEBU INHALATION SCH (08:43)
[2025-05-03] MEDS: predniSONE 20 MG TAB PO SCH (09:01)
--- NOTE | 2025-05-03 11:11 | P.PN ---
Subjective HISTORY OF PRESENT ILLNESS: This is an 79-year-old female who follows in the office with Dr. Castillo. Patient is admitted to the hospital secondary to cellulitis. Cardiology was consulted for possible atrial fibrillation. However there has been no evidence of atrial fibrillation. She is maintaining sinus mechanism. She is mildly tachycardic t his morning with a heart rate of 105. Blood pressure is stable. She denies chest pain or shortness of breath. Echocardiogram completed revealing ejection fraction 55 to 60%, moderate concentric LVH, mild pulmonary hypertension, trace TR 05/03/2025 Patient examined this morning. Patient is sitting up in the chair. She denies chest pain or pressure. She continues to report shortness of breath. She is currently having a breathing treatment. PHYSICAL EXAM: VITAL SIGNS: Reviewed. GENERAL: Well-developed in no acute distress. NECK: Supple. No JVD or thyromegaly LUNGS: Respirations even and unlabored. Lungs essentially clear to auscultation bilaterally. HEART: Regular rate and rhythm. S1 and S2 heard. EXTREMITIES: Normal range of motion. No clubbing or cyanosis. Peripheral pulses intact. No lower extremity edema ASSESSMENT: Sepsis Community-acquired pneumonia Right upper extremity cellulitis Sinus tachycardia Atrial fibrillation, ruled out Chronic heart failure with preserved EF, currently euvolemic History of DVT/PE, on Eliquis outpatient Morbid obesity: BMI 40.6 PLAN: Continue Eliquis, Lipitor, Lasix, metoprolol No further inpatient recommendations from a cardiac standpoint We will sign off. Please reconsult if needed. Patient to follow-up postdischarge in the office with Dr. Castillo Nurse practitioner note has been reviewed by physician. Signing provider agrees with the documented findings, assessment, and plan of care documented by [employer] as a scribe. Objective - Vital Signs Vital signs: Vital Signs Temp 97.7 F 05/03/25 08:00 Pulse 82 05/03/25 09:18 Resp 18 05/03/25 08:00 BP 157/84 05/03/25 08:00 Pulse Ox 98 05/03/25 08:00 FiO2 Intake & Output 05/02/25 05/03/25 05/03/25 18:59 06:59 18:59 Intake Total 10 Output Total 1500 900 200 Balance -1500 -900 -190 Weight 113.3 kg Intake: IV 10 Invasive Line 3 10 Output: Urine 1500 900 200 Other: Voiding Method Bedside Commode Bedside Commode Bedside Commode Diaper Diaper Diaper - Labs CBC & Chem 7: 05/03/25 06:42 05/03/25 06:50 Labs: Abnormal Lab Results - Last 24 Hours (Table) 05/02/25 05/02/25 05/03/25 Range/Units 16:32 20:27 06:42 WBC 24.83 H (4.50-10.00) 10*3/uL MCV 100.2 H (80.0-97.0) fL MCH 34.0 H (27.0-32.0) pg MPV 12.4 H (9.5-12.2) fL Chloride (98-107) mmol/L BUN (7-17) mg/dL Glucose (74-99) mg/dL POC Glucose (mg/dL) 149 H 132 H (70-110) mg/dL 05/03/25 Range/Units 06:50 WBC (4.50-10.00) 10*3/uL MCV (80.0-97.0) fL MCH (27.0-32.0) pg MPV (9.5-12.2) fL Chloride 109 H (98-107) mmol/L BUN 22 H (7-17) mg/dL Glucose 104 H (74-99) mg/dL POC Glucose (mg/dL) (70-110) mg/dL Microbiology - Last 24 Hours (Table) 05/02/25 06:55 Gram Stain - Preliminary Sputum Sputum Culture - Preliminary 04/29/25 20:48 Blood Culture - Preliminary Blood 04/30/25 10:58 Nasal Screen MRSA/MSSA - Final Nasal Swab
--- NOTE | 2025-05-03 11:58 | P.PN ---
Subjective Progress Note Date: 05/03/25 Principal diagnosis: Reason for follow-up is right upper extremity cellulitis and pneumonia Patient is a 79-year-old female with a past medical history significant for Asthma, Heart Failure, Hypertension, Pulmonary Embolus (PE), Renal Disease, Thyroid Disorder, patient has been brought into the hospital concerning for weakness increasing shortness of breath and the patient also complaining of increasing swelling redness, has been diagnosed with right upper extremity cellulitis and concern for pneumonia. On today's evaluation that is 05/03/2025,the patient denies any fever or any chills, patient is breathing slightly comfortably on 2 L nasal oxygen the patient denies chest pain shortness of breath and no significant cough, patient denies abdominal pain, no nausea vomiting or diarrhea. Right upper extremity redness has decreased has been concerned about swelling to bilateral upper extremity. Patient white count is down to 24.83 creatinine 0.64 blood and sputum culture currently pending Objective - Vital Signs Vital signs: Vital Signs Temp 97.7 F 05/03/25 08:00 Pulse 82 05/03/25 09:18 Resp 18 05/03/25 08:00 BP 157/84 05/03/25 08:00 Pulse Ox 98 05/03/25 08:00 FiO2 Intake & Output 05/02/25 05/03/25 05/03/25 18:59 06:59 18:59 Intake Total 10 Output Total 1500 900 200 Balance -1500 -900 -190 Weight 113.3 kg Intake: IV 10 Invasive Line 3 10 Output: Urine 1500 900 200 Other: Voiding Method Bedside Commode Bedside Commode Bedside Commode Diaper Diaper Diaper - Exam GENERAL DESCRIPTION: An elderly up in the chair in no distress RESPIRATORY SYSTEM: Unlabored breathing , decreased breath sounds at bases HEART: S1 S2 regular rate and rhythm , ABDOMEN: Soft , no tenderness EXTREMITIES: Right upper extremity swelling redness slightly decreased - Labs CBC & Chem 7: 05/03/25 06:42 05/03/25 06:50 Labs: Abnormal Lab Results - Last 24 Hours (Table) 05/02/25 05/02/25 05/03/25 Range/Units 16:32 20:27 06:42 WBC 24.83 H (4.50-10.00) 10*3/uL MCV 100.2 H (80.0-97.0) fL MCH 34.0 H (27.0-32.0) pg MPV 12.4 H (9.5-12.2) fL Chloride (98-107) mmol/L BUN (7-17) mg/dL Glucose (74-99) mg/dL POC Glucose (mg/dL) 149 H 132 H (70-110) mg/dL 05/03/25 Range/Units 06:50 WBC (4.50-10.00) 10*3/uL MCV (80.0-97.0) fL MCH (27.0-32.0) pg MPV (9.5-12.2) fL Chloride 109 H (98-107) mmol/L BUN 22 H (7-17) mg/dL Glucose 104 H (74-99) mg/dL POC Glucose (mg/dL) (70-110) mg/dL Microbiology - Last 24 Hours (Table) 05/02/25 06:55 Gram Stain - Preliminary Sputum Sputum Culture - Preliminary 04/29/25 20:48 Blood Culture - Preliminary Blood 04/30/25 10:58 Nasal Screen MRSA/MSSA - Final Nasal Swab Assessment and Plan (1) Sepsis Current Visit: Yes Status: Acute Code(s): A41.9 - SEPSIS, UNSPECIFIED ORGANISM SNOMED Code(s): 68904632 (2) Right arm cellulitis Current Visit: Yes Status: Acute Code(s): L03.113 - CELLULITIS OF RIGHT UPPER LIMB SNOMED Code(s): 87644648925146378 Plan: 1patient presented to hospital with sepsis in this patient who did have a low-grade fever patient did have tachycardia elevated white count elevated lactic acid meeting currently for SIRS/sepsis source is likely a combination of right upper extremity cellulitis plus minus abdominal source as the patient did have evidence of significant stool retention on CT, unfortunately CT was done without any contrast that limit the sensitivity of that testing 2patient is afebrile white count trending down blood cultures pending sputum cultures currently pending 3patient is being treated with cefepime and vancomycin while waiting for the culture to finalize Multiple question concern answered Dictation was produced using [employer] dictation software. please excuse any grammatical, word or spelling errors. Time with Patient: Less than 30
[2025-05-03 12:19] LABS: Glucose,Whole Blood 86 mg/dL (70-110)
--- NOTE | 2025-05-03 16:01 | P.PN ---
Subjective Progress Note Date: 05/03/25 Patient was seen and examined. RUE redness and swelling improving slowly. She continues to complain of shortness of breath and persistent nausea but no more vomiting. Antibiotics include Vancomycin dosed per pharmacy, and Cefepime 2g IV BID. CBC shows WBC 24.83, MCV 100.2. BMP Cl 109, BUN 22, glu 104. General: no distress, appears at stated age Derm: warm, dry Head: atraumatic, normocephalic, symmetric Mouth: no lip lesion, mucus membranes moist Cardiovascular: S1 S2 reg No murmur. Lungs: Decreased BS bilaterally, no accessory muscle use Ext: RUE erythema and swelling improved slightly from outline. Neuro: No focal neurologic deficits. Psych: Alert and oriented. Based on my assessment of this patient, this patient meets a high complexity level of care. Sepsis secondary to RUE cellulitis: Continue LR 50 cc/hr. Vancomycin dosed per pharmacy (monitor renal function daily). Cefepime 2g IV BID. BCx prelim neg. Acute on chronic hypoxic hypercapnic respiratory failure secondary to possible CAP and COPD exacerbation: Pulmicort 1 mg INH BID. Perforomist 20 mcg INH BID. DuoNeb QID + Q2H PRN SOB/wheezing. SoluMedrol switched to Prednisone 40 mg PO QD. Fecal impaction: Lactulose 20g PO BID. Miralax 17g PO QD. Sinus tachycardia: Echo EF 55-60% mild concentric LVH and no regional wall motion abnormalities. Metoprolol 50 mg PO BID. Chronic diastolic heart failure: Lasix 20 mg PO BID. Metoprolol as above. History of DVT/PE: Eliquis 5 mg PO BID. Hypothyroidism: TSH 0.453 FT4 1.98. Continue Synthroid 100 mcg PO QD. Continue IV antibiotics per ID recommendation. Still with significant RUE ce llulitis though slowly improving. She is pending clinical improvement. CODE STATUS: FULL CODE DVT Prophylaxis: Eliquis GI Prophylaxis: Protonix PO Designated medical POA if patient is not able to make medical decisions for themselves: I have reviewed the following clinical program consultant notes: ID, Cardio. I have reviewed the results of the following tests: CBC, BMP. I have ordered the following tests: CBC, renal function in the AM. I have discussed the care of this patient with the following independent historian: I have independently interpreted the following test below: I have discussed the management of this patient with the following physician: Objective - Vital Signs Vital signs: Vital Signs Temp 98.1 F 05/03/25 12:00 Pulse 80 05/03/25 12:34 Resp 18 05/03/25 12:00 BP 170/94 05/03/25 12:00 Pulse Ox 96 05/03/25 12:00 FiO2 Intake & Output 05/02/25 05/03/25 05/03/25 18:59 06:59 18:59 Intake Total 20 Output Total 1500 900 800 Balance -9546 -900 -244 Weight 113.3 kg Intake: IV 20 Invasive Line 3 20 Output: Urine 1500 900 800 Other: Voiding Method Bedside Commode Bedside Commode Bedside Commode Diaper Diaper Diaper - Labs CBC & Chem 7: 05/03/25 06:42 05/03/25 06:50 Labs: Abnormal Lab Results - Last 24 Hours (Table) 05/02/25 05/02/25 05/03/25 Range/Units 16:32 20:27 06:42 WBC 24.83 H (4.50-10.00) 10*3/uL MCV 100.2 H (80.0-97.0) fL MCH 34.0 H (27.0-32.0) pg MPV 12.4 H (9.5-12.2) fL Chloride (98-107) mmol/L BUN (7-17) mg/dL Glucose (74-99) mg/dL POC Glucose (mg/dL) 149 H 132 H (70-110) mg/dL 05/03/25 Range/Units 06:50 WBC (4.50-10.00) 10*3/uL MCV (80.0-97.0) fL MCH (27.0-32.0) pg MPV (9.5-12.2) fL Chloride 109 H (98-107) mmol/L BUN 22 H (7-17) mg/dL Glucose 104 H (74-99) mg/dL POC Glucose (mg/dL) (70-110) mg/dL Microbiology - Last 24 Hours (Table) 05/02/25 06:55 Gram Stain - Preliminary Sputum Sputum Culture - Preliminary 04/29/25 20:48 Blood Culture - Preliminary Blood 04/30/25 10:58 Nasal Screen MRSA/MSSA - Final Nasal Swab
--- NOTE | 2025-05-03 16:04 | P.PN ---
Subjective Progress Note Date: 05/03/25 This is a very pleasant 79-year-old female patient with known history of COPD and tracheobronchomalacia who is coming into the hospital feeling weak and fatigued and tired and worn out. Immediately, the patient was noted to have a right upper extremity cellulitis above the elbow extending to the shoulder. The patient has significant leukocytosis with a white cell count of 35 with a hemoglobin of 16 and a platelet count of 177. Electrolytes are all within normal limits. Initial lactic acid level was up to 5.2 and it dropped down to 2.5 with fluids and antibiotics were also started. UA is negative. proBNP is 926. Troponins are negative. Electrolytes are all within normal limits. Normal renal function. Normal LFTs. Cultures were sent. The patient was started on IV cefepime and vancomycin. She has a dry skin and she has been scratching and she has developed some superficial ulceration in the skin in her right upper extremity. No altered mentation. The patient is currently on 4 L o f oxygen by nasal cannula with a pulse ox of 99%. No altered mentation. She is in sinus tachycardia. She has diastolic heart failure and there is no signs of any exacerbation. The patient is seen today May 01, 2025 in follow-up on the selective care unit. She is currently sitting up in a chair at the bedside. Awake and alert in no acute distress. Maintaining O2 saturations in the 90s on 3 L/min per nasal cannula. She has been afebrile. Hemodynamically stable. Echocardiogram reveals preserved left ventricular systolic function with an ejection fraction of 55 to 60%. No significant valvular abnormalities. Technically difficult study. Blood culture pending. White count 40.8. Hemoglobin 14.6. Platelets 172. Creatinine 0.78. Glucose 72. Lactic acid 2.0. She remains on cefepime and vancomycin. Continued on DuoNeb inhalations, Solu-Medrol, Pulmicort. Anticoagulated with Eliquis The patient is seen today May 03, 2025 in follow-up on the selective care unit. She is currently sitting up in a chair at the bedside. Awake and alert in no acute distress. Denies any worsening shortness of breath, cough or congestion. Still have some complaints of fatigue and weakness. She remains on vancomycin and cefepime. Continued on DuoNeb inhalations, Pulmicort and Perforomist inhalations, prednisone taper. Anticoagulated with Eliquis. White count 24.8. Hemoglobin 14.2. Platelets 146. Sodium 138. Potassium 5.0. Bicarb 25. BUN 22. Creatinine 0.64. Glucose 104. Calcium 10.0. Objective - Vital Signs Vital signs: Vital Signs Temp 98.1 F 05/03/25 12:00 Pulse 80 05/03/25 12:34 Resp 18 05/03/25 12:00 BP 170/94 05/03/25 12:00 Pulse Ox 96 05/03/25 12:00 FiO2 Intake & Output 05/02/25 05/03/25 05/03/25 18:59 06:59 18:59 Intake Total 20 Output Total 1500 900 800 Balance -1500 900 -780 Weight 113.3 kg Intake: IV 20 Invasive Line 3 20 Output: Urine 1500 900 800 Other: Voiding Method Bedside Commode Bedside Commode Bedside Commode Diaper Diaper Diaper - Exam GENERAL EXAM: Alert, pleasant, obese 79-year-old female, up in a chair, on 2 L nasal cannula, comfortable in no apparent distress. HEAD: Normocephalic. EYES: Normal reaction of pupils, equal size. NOSE: Clear with pink turbinates. THROAT: No erythema or exudates. NECK: No masses, no JVD. CHEST: No chest wall deformity. LUNGS: Equal air entry with bilateral end expiratory wheeze. CVS: S1 and S2 normal with no audible murmur, regular rhythm. ABDOMEN: No hepatosplenomegaly, normal bowel sounds, no guarding or rigidity. SPINE: No scoliosis or deformity SKIN: No rashes CENTRAL NERVOUS SYSTEM: No focal deficits, tone is normal in all 4 extremities. EXTREMITIES: Cellulitis of the right upper extremity. There is no peripheral edema. No clubbing, no cyanosis. Peripheral pulses are intact. - Labs CBC & Chem 7: 05/03/25 06:42 05/03/25 06:50 Labs: Abnormal Lab Results - Last 24 Hours (Table) 05/02/25 05/02/25 05/03/25 Range/Units 16:32 20:27 06:42 WBC 24.83 H (4.50-10.00) 10*3/uL MCV 100.2 H (80.0-97.0) fL MCH 34.0 H (27.0-32.0) pg MPV 12.4 H (9.5-12.2) fL Chloride (98-107) mmol/L BUN (7-17) mg/dL Glucose (74-99) mg/dL POC Glucose (mg/dL) 149 H 132 H (70-110) mg/dL 05/03/25 Range/Units 06:50 WBC (4.50-10.00) 10*3/uL MCV (80.0-97.0) fL MCH (27.0-32.0) pg MPV (9.5-12.2) fL Chloride 109 H (98-107) mmol/L BUN 22 H (7-17) mg/dL Glucose 104 H (74-99) mg/dL POC Glucose (mg/dL) (70-110) mg/dL Microbiology - Last 24 Hours (Table) 05/02/25 06:55 Gram Stain - Preliminary Sputum Sputum Culture - Preliminary 04/29/25 20:48 Blood Culture - Preliminary Blood 04/30/25 10:58 Nasal Screen MRSA/MSSA - Final Nasal Swab Assessment and Plan Assessment: Acute cellulitis of the right upper extremity. Currently on vancomycin and cefepime Acute sepsis secondary to above, improving Acute leukocytosis secondary to above, improving Acute lactic acidosis secondary to above, improving Acute exacerbation of COPD/asthma with a component of tracheobronchomalacia Acute hypoxic respiratory failure secondary to above, currently on 3 L nasal cannula Sinus tachycardia secondary to above, improved Obesity with a BMI of 44.2 kg/m Polymyalgia rheumatica Hypertension Hypothyroidism Previous history of pulmonary embolism, maintained on long-term anticoagulation with Eliquis Scoliosis Plan: The patient was seen and evaluated Labs and medications reviewed Continue vancomycin and cefepime Continue DuoNeb inhalations Continue Pulmicort inhalations Continue Perforomist inhalations Continue prednisone taper Titrate down the FiO2 as tolerated Increase activity as tolerated We will continue to follow I have personally seen and examined the patient, performed the documentation and the assessment and plan as written. Number of minutes spent on the visit: 10 Dictation was produced using [employer] dictation software. Please excuse any grammatical, word or spelling errors.
[2025-05-03 16:22] LABS: Glucose,Whole Blood 85 mg/dL (70-110)
[2025-05-04 06:54] LABS: Glucose,Whole Blood 93 mg/dL (70-110)
[2025-05-04 07:03] LABS: HGB 13.3 g/dL (12.0-15.0); MCH 33.3 pg (27.0-32.0); MCHC 33.3 g/dL (32.0-37.0); Mean Platelet Volume 11.5 fL (9.5-12.2); Platelet Count 172 10*3/uL (140-440); RDW 12.8 % (11.5-14.5); WBC 13.76 10*3/uL (4.50-10.00)
[2025-05-04] MEDS: VANCOMYCIN TROUGH DUE 1 EACH MISC MISCELLANE ONE (07:05)
[2025-05-04 07:20] LABS: African American GFR (CKD) >90 (>60 ml/min/1.73 sqM); Anion Gap 5 mmol/L; Blood Urea Nitrogen 18 mg/dL (7-17); Calcium 9.4 mg/dL (8.4-10.2); Carbon Dioxide 26 mmol/L (22-30); Chloride 101 mmol/L (98-107); Glucose 90 mg/dL (74-99); Non-African American GFR(CKD) 84 (>60 ml/min/1.73 sqM); Potassium 3.5 mmol/L (3.5-5.1); Sodium 132 mmol/L (137-145)
--- NOTE | 2025-05-04 11:20 | XR ---
EXAMINATION TYPE: XR chest 1V portable DATE OF EXAM: 05/04/2025 11:13 AM COMPARISON: None. CLINICAL INDICATION: Female, 79 years old with history of CHF COPD, TECHNIQUE: XR chest 1V portable view(s) obtained. FINDINGS: The heart size is normal. The pulmonary vasculature is normal. Minimal infiltrate may be of the left costophrenic angle. Correlate for atelectasis. Right shoulder prosthesis present IMPRESSION: 1. Minimal atelectasis likely present at the left costophrenic angle. [facility], , 05/04/2025 11:18 AM
[2025-05-04] MEDS: VANCOMYCIN 1,750 MG in SODIUM CHLORIDE 0.9% 500 ML 500 ML IVPB SCH (11:57)
[2025-05-04 12:05] VITALS: BMI 44.4
--- NOTE | 2025-05-04 12:30 | P.PN ---
Subjective Progress Note Date: 05/04/25 Patient was seen and examined. RUE redness and swelling much improved. She continues to complain of shortness of breath. CXR was done today which shows some atelectasis. Antibiotics include Vancomycin dosed per pharmacy, and Cefepime 2g IV BID. CBC shows WBC 13.76, RBC 4, MCV 100. BMP Na 132, BUN 18. PT and OT recommending SNF, case management on board. General: no distress, appears at stated age Derm: warm, dry Head: atraumatic, normocephalic, symmetric Mouth: no lip lesion, mucus membranes moist Cardiovascular: S1 S2 reg No murmur. Lungs: Decreased BS bilaterally, no accessory muscle use Ext: RUE erythema and swelling improved greatly from outline. Neuro: No focal neurologic deficits. Psych: Alert and oriented. Based on my assessment of this patient, this patient meets a high complexity lev el of care. Sepsis secondary to RUE cellulitis: DC LR 50 cc/hr. Vancomycin dosed per pharmacy (monitor renal function daily). Cefepime 2g IV BID. Discussed with Dr. Lebron, plans to de-escalate Abx to PO today. BCx prelim neg. ID on board. Acute on chronic hypoxic hypercapnic respiratory failure secondary to possible CAP and COPD exacerbation: Pulmicort 1 mg INH BID. Perforomist 20 mcg INH BID. DuoNeb QID + Q2H PRN SOB/wheezing. SoluMedrol switched to Prednisone 40 mg PO QD. Fecal impaction: Lactulose 20g PO BID. Miralax 17g PO QD. Sinus tachycardia: Echo EF 55-60% mild concentric LVH and no regional wall motion abnormalities. Metoprolol 50 mg PO BID. Chronic diastolic heart failure: Lasix 20 mg PO BID. Metoprolol as above. History of DVT/PE: Eliquis 5 mg PO BID. Hypothyroidism: TSH 0.453 FT4 1.98. Continue Synthroid 100 mcg PO QD. Resolved: Lactic acidosis. ELLIOT. Continue antibiotics per ID recommendation. Improved cellulitis. Working with PT and OT recommending SNF. Discussed with case management, pending insurance auth. Plans for DC once accepted to SNF. CODE STATUS: FULL CODE DVT Prophylaxis: Eliquis GI Prophylaxis: Protonix PO Designated medical POA if patient is not able to make medical decisions for themselves: I have reviewed the following cancer program consultant notes: I have reviewed the results of the following tests: CBC, BMP. I have ordered the following tests: CBC, renal function in the AM. I have discussed the care of this patient with the following independent histo scott: Son, RN, Case management. I have independently interpreted the following test below: I have discussed the management of this patient with the following physician: Dr. Lebron. Objective - Vital Signs Vital signs: Vital Signs Temp 98.4 F 05/04/25 12:00 Pulse 86 05/04/25 12:00 Resp 14 05/04/25 12:00 BP 170/84 05/04/25 12:00 Pulse Ox 95 05/04/25 12:00 FiO2 Intake & Output 05/03/25 05/04/25 05/04/25 18:59 06:59 18:59 Intake Total 560 240 Output Total 1100 1425 200 Balance -540 -1425 40 Weight 113.9 kg 113.9 kg Intake: IV 20 Invasive Line 3 20 Oral 540 240 Output: Urine 1100 1425 200 Other: Voiding Method Bedside Commode Bedside Commode Diaper Diaper # Voids 1 1 - Labs CBC & Chem 7: 05/04/25 06:41 05/04/25 06:41 Labs: Abnormal Lab Results - Last 24 Hours (Table) 05/04/25 05/04/25 Range/Units 06:41 06:41 WBC 13.76 H (4.50-10.00) 10*3/uL RBC 4.00 L (4.10-5.20) 10*6/uL MCV 100.0 H (80.0-97.0) fL MCH 33.3 H (27.0-32.0) pg Sodium 132 L (137-145) mmol/L BUN 18 H (7-17) mg/dL Microbiology - Last 24 Hours (Table) 05/02/25 06:55 Gram Stain - Preliminary Sputum Sputum Culture - Preliminary
[2025-05-04] MEDS: CEPHALEXIN 500 MG CAP PO SCH (13:54)
--- NOTE | 2025-05-04 14:38 | P.PN ---
Subjective Progress Note Date: 05/04/25 Principal diagnosis: Acute right upper extremity cellulitis and acute exacerbation of COPD/asthma This is a very pleasant 79-year-old female patient with known history of COPD an d tracheobronchomalacia who is coming into the hospital feeling weak and fatigued and tired and worn out. Immediately, the patient was noted to have a right upper extremity cellulitis above the elbow extending to the shoulder. The patient has significant leukocytosis with a white cell count of 35 with a hemoglobin of 16 and a platelet count of 177. Electrolytes are all within normal limits. Initial lactic acid level was up to 5.2 and it dropped down to 2.5 with fluids and antibiotics were also started. UA is negative. proBNP is 926. Troponins are negative. Electrolytes are all within normal limits. Normal renal function. Normal LFTs. Cultures were sent. The patient was started on IV cefepime and vancomycin. She has a dry skin and she has been scratching and she has developed some superficial ulceration in the skin in her right upper extremity. No altered mentation. The patient is currently on 4 L of oxygen by nasal cannula with a pulse ox of 99%. No altered mentation. She is in sinus tachycardia. She has diastolic heart failure and there is no signs of any exacerbation. The patient is seen today May 01, 2025 in follow-up on the selective care unit. She is currently sitting up in a chair at the bedside. Awake and alert in no acute distress. Maintaining O2 saturations in the 90s on 3 L/min per nasal cannula. She has been afebrile. Hemodynamically stable. Echocardiogram reveals preserved left ventricular systolic function with an ejection fraction of 55 to 60%. No significant valvular abnormalities. Technically difficult study. Blood culture pending. White count 40.8. Hemoglobin 14.6. Platelets 172. Creatinine 0.78. Glucose 72. Lactic acid 2.0. She remains on cefepime and vancomycin. Continued on DuoNeb inhalations, Solu-Medrol, Pulmicort. Anticoagulated with Eliquis Seen today on 05/02/2025, patient is not doing well today, she has generalized aches and pains, shortness of breath, intermittent cough and wheezing, painful right upper extremity, patient is being treated for her cellulitis of the right upper extremity, she is also being treated for her underlying COPD/asthma with multiple bronchodilators, she is also on cefepime and vancomycin as well as steroids and Pulmicort she is anticoagulated with Eliquis. Today's WBC is 31.2, hemoglobin 13.7, improving compared to 40.8 yesterday and 43.4 the day before. Chest x-ray on 04/30 showed no acute process. Today the patient has scattered rhonchi and wheezes on physical examination. But she is on maximal therapy for COPD/asthma. Patient was seen today on 05/04/2025, continues to have multiple symptoms including shortness of breath intermittent cough and wheezing, vague aches and pains, patient is on maximal therapy for her COPD she is also on maximal therapy for her cellulitis. WBC count is improving today down to 13.7 hemoglobin 13.3 electrolytes are normal renal profile is normal, chest x-ray showed minimal atelectasis at the left costophrenic angle no evidence of infiltrate no evidence of pulmonary edema Objective - Vital Signs Vital signs: Vital Signs Temp 98.4 F 05/04/25 12:00 Pulse 86 05/04/25 12:00 Resp 14 05/04/25 12:00 BP 170/84 05/04/25 12:00 Pulse Ox 95 05/04/25 12:00 FiO2 Intake & Output 05/03/25 05/04/25 05/04/25 18:59 06:59 18:59 Intake Total 560 240 Output Total 1100 1425 200 Balance -540 -1425 40 Weight 113.9 kg 113.9 kg Intake: IV 20 Invasive Line 3 20 Oral 540 240 Output: Urine 1100 1425 200 Other: Voiding Method Bedside Commode Bedside Commode Bedside Commode Diaper Diaper Diaper # Voids 1 1 - Exam GENERAL EXAM: 79-year-old female in no distress, obese centimeters nasal cannula HEAD: Normocephalic. EYES: Normal reaction of pupils, equal size. NOSE: Clear with pink turbinates. THROAT: No erythema or exudates. NECK: No masses, no JVD. CHEST: No chest wall deformity. LUNGS: Rhonchi and wheezes noted bilaterally more so on forced expiratory maneuver CVS: S1 and S2 normal with no audible murmur, regular rhythm. ABDOMEN: No hepatosplenomegaly, normal bowel sounds, no guarding or rigidity. SKIN: Extensive erythema involving the upper portion of the right upper extremity/cellulitis of right arm CENTRAL NERVOUS SYSTEM: Alert oriented x 3 no focal deficit EXTREMITIES: Cellulitis of the right upper extremity.No clubbing edema or cyanosis. - Labs CBC & Chem 7: 05/04/25 06:41 05/04/25 06:41 Labs: Abnormal Lab Results - Last 24 Hours (Table) 05/04/25 05/04/25 Range/Units 06:41 06:41 WBC 13.76 H (4.50-10.00) 10*3/uL RBC 4.00 L (4.10-5.20) 10*6/uL MCV 100.0 H (80.0-97.0) fL MCH 33.3 H (27.0-32.0) pg Sodium 132 L (137-145) mmol/L BUN 18 H (7-17) mg/dL Microbiology - Last 24 Hours (Table) 05/02/25 06:55 Gram Stain - Final Sputum Sputum Culture - Final Assessment and Plan Assessment: Impression: Acute cellulitis of the right upper extremity. Currently on vancomycin and cefepime Acute sepsis secondary to above Acute leukocytosis secondary to above Acute lactic acidosis secondary to above, improving Acute exacerbation of COPD/asthma with a component of tracheobronchomalacia Acute hypoxic respiratory failure secondary to above, currently on 3 L nasal cannula Sinus tachycardia secondary to above, improved Obesity with a BMI of 40.6 kg/m Polymyalgia rheumatica Hypertension Hypothyroidism Previous history of pulmonary embolism, maintained on long-term anticoagulation with Eliquis Scoliosis Recommendation: Patient is not making significant improvement in her overall pulm status in spite of maximal therapy with bronchodilators, antibiotics and steroids. Chest x-ray showed minimal atelectasis Continue present course of antibiotics including cefepime and vancomycin Continue bronchodilators and steroids Continue Eliquis Continue Lasix 20 mg twice daily Not ready for any discharge planning We will continue to follow Time with Patient: Less than 30
--- NOTE | 2025-05-04 16:23 | P.PN ---
Subjective Progress Note Date: 05/04/25 Principal diagnosis: Reason for follow-up is right upper extremity cellulitis and pneumonia Patient is a 79-year-old female with a past medical history significant for Asthma, Heart Failure, Hypertension, Pulmonary Embolus (PE), Renal Disease, Thyroid Disorder, patient has been brought into the hospital concerning for weakness increasing shortness of breath and the patient also complaining of increasing swelling redness, has been diagnosed with right upper extremity cellulitis and concern for pneumonia. On today's evaluation that is 05/04/2025,the patient remains to be afebrile, patient is on 2 L nasal cannula supplemental oxygen and has been complaining of swelling and shortness of breath denies any chest pain he did have a cough mostly dry in nature right upper extremity swelling redness has decreased. Patient white count is down to 13.76 creatinine is 0.64 blood and sputum culture have been negative Objective - Vital Signs Vital signs: Vital Signs Temp 98.4 F 05/04/25 12:00 Pulse 86 05/04/25 12:00 Resp 14 05/04/25 12:00 BP 170/84 05/04/25 12:00 Pulse Ox 95 05/04/25 12:00 FiO2 Intake & Output 05/03/25 05/04/25 05/04/25 18:59 06:59 18:59 Intake Total 560 240 Output Total 1100 1425 200 Balance -540 -1425 40 Weight 113.9 kg 113.9 kg Intake: IV 20 Invasive Line 3 20 Oral 540 240 Output: Urine 1100 1425 200 Other: Voiding Method Bedside Commode Bedside Commode Diaper Diaper # Voids 1 1 - Exam GENERAL DESCRIPTION: An elderly up in the chair in no distress RESPIRATORY SYSTEM: Unlabored breathing , decreased breath sounds at bases HEART: S1 S2 regular rate and rhythm , ABDOMEN: Soft , no tenderness EXTREMITIES: Right upper extremity swelling redness slightly decreased - Labs CBC & Chem 7: 05/04/25 06:41 05/04/25 06:41 Labs: Abnormal Lab Results - Last 24 Hours (Table) 05/04/25 05/04/25 Range/Units 06:41 06:41 WBC 13.76 H (4.50-10.00) 10*3/uL RBC 4.00 L (4.10-5.20) 10*6/uL MCV 100.0 H (80.0-97.0) fL MCH 33.3 H (27.0-32.0) pg Sodium 132 L (137-145) mmol/L BUN 18 H (7-17) mg/dL Microbiology - Last 24 Hours (Table) 05/02/25 06:55 Gram Stain - Preliminary Sputum Sputum Culture - Preliminary Assessment and Plan (1) Sepsis Current Visit: Yes Status: Acute Code(s): A41.9 - SEPSIS, UNSPECIFIED ORGANISM SNOMED Code(s): 25122869 (2) Right arm cellulitis Current Visit: Yes Status: Acute Code(s): L03.113 - CELLULITIS OF RIGHT UPPER LIMB SNOMED Code(s): 93039469631476724 Plan: 1patient presented to hospital with sepsis in this patient who did have a low- grade fever patient did have tachycardia elevated white count elevated lactic acid meeting currently for SIRS/sepsis source is likely a combination of right upper extremity cellulitis plus minus abdominal source as the patient did have evidence of significant stool retention on CT, unfortunately CT was done without any contrast that limit the sensitivity of that testing 2patient is afebrile white count trending is down to 13,000, blood and sputum culture have been negative 3patient cefepime and vancomycin will be discontinued started on oral Keflex more targeted towards the right upper extremity cellulitis and will see clinical response Dictation was produced using [employer] dictation software. please excuse any grammatical, word or spelling errors. Time with Patient: Less than 30
[2025-05-05 08:47] VITALS: RESP 18; TEMP 98.6
[2025-05-05 12:32] VITALS: BP 163/81; PULSE 82
--- NOTE | 2025-05-05 12:57 | P.DS ---
Providers Date of admission: 04/29/25 21:49 Expected date of discharge: 05/05/25 Attending physician: Arnold Arreaga MD Consults: 04/29/25 21:49 Consult Physician Routine Consulting Provider: Nathalia Ruff Consult Reason/Comments: copd Do you want consulting provider notified?: Yes Consult Physician Routine Consulting Provider: Geovany Lebron Consult Reason/Comments: sepsis Do you want consulting provider notified?: Yes Primary care physician: Tita Urban DO Hospital Course: 79-year-old female patient with a past medical history including chronic hypoxic respiratory failure and she is supposed to be on 2 L nasal cannula oxygen but she is not using her oxygen, emphysema, diastolic heart failure, history of DVT/PE and currently on Eliquis 5 mg twice daily and spinal stenosis who presents to the ED with multiple complaints. Patient reports that she lives by herself and no one takes care of her. She presents today complaining of dyspnea and had to use her oxygen as she is desatting. She does complain of right shoulder pain and right upper extremity increased redness and erythema. In the ED she underwent extensive evaluation. BP 88/63, HR 146, RR 25, T 99.6, 98% on 3L NC. CBC, CMP significant for WBC 35.79, Hg 16.6, Hct 50.2, MCV 103.3, Na 136, BUN 25, Lactic acid 3.7-5.2-2, Ca 10.4, T. Bili 1.5, TSH 0.453, FT4 1.98, Trop < 0.012. Mag 2.1, BNP 926. UA neg. EKG shows concerns for AFib RVR with rate of 146. CXR showing concerns for PNA. Patient was started on Cardizem drip later switched to Amiodarone drink, Vancomycin and Cefepime and admitted for treatment of PNA + cellulitis. ID, Pulmonary and Cardiology consulted. Cardiology evaluated the patient and did not see any signs of A-Fib. Amiodarone was discontinued and she was restarted on Metoprolol. Previously on Eliquis for DVT which was continued. Echo showed EF 55-60% mild concentric LVH and no regional wall motion abnormalities. ID recommended CT AP which showed moderate fecal retention with fecal bolus in the rectum. ID added Flagyl to her antibiotics. BCx, MRSA nasal screen and Sputum culture were all negative. Her cellulitis improved and she was switched to Keflex to complete a total of 2 weeks antibiotics. Her TSH was low at 0.453, FT4 1.98. Synthroid dose was reduced from 112 mcg PO QD to 100 mcg PO QD. She was started on Lactulose and Miralax and was able to have multiple bowel movements during her hospitalization. Pulmonary optimized her bronchodilators. PT and OT evaluated, recommended SNF. 05/05 Patient was seen and examined. Doing well. Erythema improving. Approved for SNF today. No new labs done today. Discharge Plans: Diet: 1.5L fluid restriction, low salt Prednisone taper 40 mg PO QD x 3 days, 30 mg PO QD x 3 days, 20 mg PO QD x 3 days, 10 mg PO QD after that. Keflex 500 mg PO QID x 7 days. Repeat TSH + FT4 in 6 weeks for further adjustments of synthroid Follow up with PCP within 1-2 days, Cardiology/Pulmonary/ID within 1 week of discharge. General: no distress, appears at stated age Derm: warm, dry Head: atraumatic, normocephalic, symmetric Mouth: no lip lesion, mucus membranes moist Cardiovascular: S1 S2 reg No murmur. Lungs: Decreased BS bilaterally, no accessory muscle use Ext: RUE erythema and swelling improved greatly from outline. Neuro: No focal neurologic deficits. Psych: Alert and oriented. Discharge Diagnosis: Sepsis secondary to RUE cellulitis Acute on chronic hypoxic hypercapnic respiratory failure secondary to possible CAP and COPD exacerbation Fecal impaction Sinus tachycardia Chronic diastolic heart failure History of DVT/PE Hypothyroidism Resolved: Lactic acidosis. ELLIOT. This complex discharge took 35 minutes to complete. Patient Condition at Discharge: Stable Plan - Discharge Summary Discharge Rx Participant: No New Discharge Prescriptions: New polyethylene glycoL 3350 [Miralax] 17 gm PO DAILY packet Cephalexin [Keflex] 500 mg PO QID #28 cap Atorvastatin [Lipitor] 40 mg PO HS tab Melatonin 3 mg PO HS PRN tab PRN Reason: Insomnia predniSONE See Taper PO DIRECTED 12 Days #30 tab Pantoprazole [Protonix] 40 mg PO AC-BRKFST tab Levothyroxine Sodium [Synthroid] 100 mcg PO DAILY@0630 tab Metoprolol Succinate (ER) [Toprol XL] 50 mg PO BID tab Continue Aspirin [Adult Low Dose Aspirin EC] 81 mg PO DAILY Ipratropium/Albuterol Sulfate [Combivent Respimat Inhaler] 1 puff INHALATION RT-QID PRN PRN Reason: Shortness Of Breath predniSONE 10 mg PO DAILY Multivit-Min/Iron/Folic/Lutein [Centrum Silver Women Tablet] 1 tab PO DAILY Cyclobenzaprine [Flexeril] 10 mg PO HS PRN 30 Days #30 tab PRN Reason: Muscle Spasm Biotin 5,000 mcg PO DAILY guaiFENesin-DM 100-10MG/5ML [Robitussin DM] 20 ml PO QID PRN PRN Reason: Congestion Fluticasone/Umeclidin/Vilanter [Trelegy Ellipta 200-62.5-25] 1 puff INHALATION RT-DAILY HYDROcodone/APAP 10-325MG [Jud 10-325] 1 tab PO QID PRN 3 Days #12 tab PRN Reason: Pain Apixaban [Eliquis] 5 mg PO BID Furosemide [Lasix] 20 mg PO BID Potassium Chloride ER [K-Dur 10] 10 meq PO MOWEFR Ipratropium-Albuterol Nebulize [Duoneb 0.5 mg-3 mg/3 ml Soln] 3 ml INHALATION RT-QID Cholecalciferol (Vitamin D3) [Vitamin D3 (50 Mcg = 2000 Iu)] 50 mcg PO DAILY Discontinued Levothyroxine Sodium [Synthroid] 112 mcg PO DAILY Metoprolol Succinate (ER) [Toprol Xl] 100 mg PO DAILY Discharge Medication List Aspirin [Adult Low Dose Aspirin EC] 81 mg PO DAILY 07/21/16 [History] Ipratropium/Albuterol Sulfate [Combivent Respimat Inhaler] 1 puff INHALATION RT- QID PRN 07/21/16 [History] Apixaban [Eliquis] 5 mg PO BID 05/05/22 [History] Furosemide [Lasix] 20 mg PO BID 05/05/22 [History] Multivit-Min/Iron/Folic/Lutein [Centrum Silver Women Tablet] 1 tab PO DAILY 09/26/24 [History] predniSONE 10 mg PO DAILY 09/26/24 [History] Cyclobenzaprine [Flexeril] 10 mg PO HS PRN 30 Days #30 tab 03/22/25 [Rx] Biotin 5,000 mcg PO DAILY 04/30/25 [History] Cholecalciferol (Vitamin D3) [Vitamin D3 (50 Mcg = 2000 Iu)] 50 mcg PO DAILY 04/30/25 [History] Fluticasone/Umeclidin/Vilanter [Trelegy Ellipta 200-62.5-25] 1 puff INHALATION RT-DAILY 04/30/25 [History] Ipratropium-Albuterol Nebulize [Duoneb 0.5 mg-3 mg/3 ml Soln] 3 ml INHALATION RT-QID 04/30/25 [History] Potassium Chloride ER [K-Dur 10] 10 meq PO MOWEFR 04/30/25 [History] guaiFENesin-DM 100-10MG/5ML [Robitussin DM] 20 ml PO QID PRN 04/30/25 [History] Atorvastatin [Lipitor] 40 mg PO HS tab 05/05/25 [Rx] Cephalexin [Keflex] 500 mg PO QID #28 cap 05/05/25 [Rx] HYDROcodone/APAP 10-325MG [Jud 10-325] 1 tab PO QID PRN 3 Days #12 tab 05/05/25 [Rx] Levothyroxine Sodium [Synthroid] 100 mcg PO DAILY@0630 tab 05/05/25 [Rx] Melatonin 3 mg PO HS PRN tab 05/05/25 [Rx] Metoprolol Succinate (ER) [Toprol XL] 50 mg PO BID tab 05/05/25 [Rx] Pantoprazole [Protonix] 40 mg PO AC-BRKFST tab 05/05/25 [Rx] polyethylene glycoL 3350 [Miralax] 17 gm PO DAILY packet 05/05/25 [Rx] predniSONE See Taper PO DIRECTED 12 Days #30 tab 05/05/25 [Rx] Follow up Appointment(s)/Referral(s): Lucian De Los Santos MD [STAFF PHYSICIAN] - 1 Week Glen Barrera MD [STAFF PHYSICIAN] - 1 Week Tita Urban DO [Primary Care Provider] - 1-2 days Geovany Lebron MD [STAFF PHYSICIAN] - 1 Week Activity/Diet/Wound Care/Special Instructions: Diet: 1.5L fluid restriction, low salt Prednisone taper 40 mg PO QD x 3 days, 30 mg PO QD x 3 days, 20 mg PO QD x 3 days, 10 mg PO QD after that. Keflex 500 mg PO QID x 7 days. Repeat TSH + FT4 in 6 weeks for further adjustments of synthroid Discharge Disposition: TRANSFER TO SNF/ECF
--- NOTE | 2025-05-05 15:05 | P.PN ---
Subjective Progress Note Date: 05/05/25 Principal diagnosis: Acute right upper extremity cellulitis and acute exacerbation of COPD/asthma This is a very pleasant 79-year-old female patient with known history of COPD an d tracheobronchomalacia who is coming into the hospital feeling weak and fatigued and tired and worn out. Immediately, the patient was noted to have a right upper extremity cellulitis above the elbow extending to the shoulder. The patient has significant leukocytosis with a white cell count of 35 with a hemoglobin of 16 and a platelet count of 177. Electrolytes are all within normal limits. Initial lactic acid level was up to 5.2 and it dropped down to 2.5 with fluids and antibiotics were also started. UA is negative. proBNP is 926. Troponins are negative. Electrolytes are all within normal limits. Normal renal function. Normal LFTs. Cultures were sent. The patient was started on IV cefepime and vancomycin. She has a dry skin and she has been scratching and she has developed some superficial ulceration in the skin in her right upper extremity. No altered mentation. The patient is currently on 4 L of oxygen by nasal cannula with a pulse ox of 99%. No altered mentation. She is in sinus tachycardia. She has diastolic heart failure and there is no signs of any exacerbation. The patient is seen today May 01, 2025 in follow-up on the selective care unit. She is currently sitting up in a chair at the bedside. Awake and alert in no acute distress. Maintaining O2 saturations in the 90s on 3 L/min per nasal cannula. She has been afebrile. Hemodynamically stable. Echocardiogram reveals preserved left ventricular systolic function with an ejection fraction of 55 to 60%. No significant valvular abnormalities. Technically difficult study. Blood culture pending. White count 40.8. Hemoglobin 14.6. Platelets 172. Creatinine 0.78. Glucose 72. Lactic acid 2.0. She remains on cefepime and vancomycin. Continued on DuoNeb inhalations, Solu-Medrol, Pulmicort. Anticoagulated with Eliquis Seen today on 05/02/2025, patient is not doing well today, she has generalized aches and pains, shortness of breath, intermittent cough and wheezing, painful right upper extremity, patient is being treated for her cellulitis of the right upper extremity, she is also being treated for her underlying COPD/asthma with multiple bronchodilators, she is also on cefepime and vancomycin as well as steroids and Pulmicort she is anticoagulated with Eliquis. Today's WBC is 31.2, hemoglobin 13.7, improving compared to 40.8 yesterday and 43.4 the day before. Chest x-ray on 04/30 showed no acute process. Today the patient has scattered rhonchi and wheezes on physical examination. But she is on maximal therapy for COPD/asthma. Patient was seen today on 05/04/2025, continues to have multiple symptoms including shortness of breath intermittent cough and wheezing, vague aches and pains, patient is on maximal therapy for her COPD she is also on maximal therapy for her cellulitis. WBC count is improving today down to 13.7 hemoglobin 13.3 electrolytes are normal renal profile is normal, chest x-ray showed minimal atelectasis at the left costophrenic angle no evidence of infiltrate no evidence of pulmonary edema Seen today on 05/05/2025, patient is feeling better, breathing easier, less cough less wheezing less shortness of breath, her cellulitis seems to be responding well to treatment, her WBC count has been coming down nicely is 13.7 today, electrolytes are normal renal profile is normal hence I will cleared the patient for discharge if cleared by other consultants on the case. Objective - Vital Signs Vital signs: Vital Signs Temp 98.6 F 05/05/25 08:43 Pulse 82 05/05/25 12:30 Resp 18 05/05/25 12:30 BP 163/81 05/05/25 12:30 Pulse Ox 95 05/05/25 12:30 FiO2 Intake & Output 05/04/25 05/05/25 05/05/25 18:59 06:59 18:59 Intake Total 720 260 Output Total 200 2225 600 Balance 520 -2225 -340 Weight 113.9 kg 111.7 kg Intake: IV 20 Invasive Line 5 10 Invasive Line 6 10 Oral 720 240 Output: Urine 200 800 400 Stool 275 200 Urine/Stool Mix 1150 Other: Voiding Method Bedside Commode Bedside Commode Bedside Commode Diaper Diaper Diaper # Voids 7 5 # Bowel Movements 4 3 1 - Exam GENERAL EXAM: 79-year-old female in no distress, obese centimeters nasal cannula HEAD: Normocephalic. EYES: Normal reaction of pupils, equal size. NOSE: Clear with pink turbinates. THROAT: No erythema or exudates. NECK: No masses, no JVD. CHEST: No chest wall deformity. LUNGS: Clear bilaterally no rhonchi no wheezes CVS: S1 and S2 normal with no audible murmur, regular rhythm. ABDOMEN: No hepatosplenomegaly, normal bowel sounds, no guarding or rigidity. SKIN: Less erythema noted in her right upper extremity/cellulitis CENTRAL NERVOUS SYSTEM: Alert oriented x 3 no focal deficit EXTREMITIES: Cellulitis of the right upper extremity.No clubbing edema or cyanosis. - Labs CBC & Chem 7: 05/04/25 06:41 05/04/25 06:41 Labs: Microbiology - Last 24 Hours (Table) 04/29/25 20:48 Blood Culture - Final Blood 05/02/25 06:55 Gram Stain - Final Sputum Sputum Culture - Final Assessment and Plan Assessment: Impression: Acute cellulitis of the right upper extremity. Responded well to treatment Acute sepsis secondary to above, improved Acute leukocytosis secondary to above Acute lactic acidosis secondary to above, improving Acute exacerbation of COPD/asthma with a component of tracheobronchomalacia Acute hypoxic respiratory failure secondary to above, currently on 3 L nasal cannula Sinus tachycardia secondary to above, improved Obesity with a BMI of 40.6 kg/m Polymyalgia rheumatica Hypertension Hypothyroidism Previous history of pulmonary embolism, maintained on long-term anticoagulation with Eliquis Scoliosis Recommendation: Will clear patient for discharge on bronchodilators and prednisone tapering Continue prednisone and taper on outpatient basis Antibiotics as per ID on the case Continue Eliquis Continue Lasix 20 mg twice daily Will cleared for discharge today. Time with Patient: Less than 30
[2025-05-05] MEDS ORDERED: SYMBICORT 160-4.5 MCG INHALER INHALATION SCH (20:00)
--- NOTE | 2025-05-06 18:23 | P.PN ---
Subjective Progress Note Date: 05/05/25 Principal diagnosis: Reason for follow-up is right upper extremity cellulitis and pneumonia Patient is a 79-year-old female with a past medical history significant for Asthma, Heart Failure, Hypertension, Pulmonary Embolus (PE), Renal Disease, Thyroid Disorder, patient has been brought into the hospital concerning for weakness increasing shortness of breath and the patient also complaining of increasing swelling redness, has been diagnosed with right upper extremity cellulitis and concern for pneumonia. On today's evaluation that is 05/05/2025, the patient continues to be afebrile, the patient is on 2 L nasal cannula oxygen and breathing comfortably, the Pt den ies having any chest pain or any worsening cough, the patient denies having any abdominal pain no vomiting or any diarrhea right upper extremity swelling redness has decreased. No new lab has been obtained today blood and sputum culture has been negative Objective - Vital Signs Vital signs: Vital Signs Temp 98.6 F 05/05/25 08:43 Pulse 82 05/05/25 12:30 Resp 18 05/05/25 12:30 BP 163/81 05/05/25 12:30 Pulse Ox 95 05/05/25 12:30 FiO2 Intake & Output 05/04/25 05/05/25 05/05/25 18:59 06:59 18:59 Intake Total 720 260 Output Total 200 2225 600 Balance 520 -2225 -340 Weight 113.9 kg 111.7 kg Intake: IV 20 Invasive Line 5 10 Invasive Line 6 10 Oral 720 240 Output: Urine 200 800 400 Stool 275 200 Urine/Stool Mix 1150 Other: Voiding Method Bedside Commode Bedside Commode Bedside Commode Diaper Diaper Diaper # Voids 7 5 # Bowel Movements 4 3 1 - Exam GENERAL DESCRIPTION: An elderly up in the chair in no distress RESPIRATORY SYSTEM: Unlabored breathing , decreased breath sounds at bases HEART: S1 S2 regular rate and rhythm , ABDOMEN: Soft , no tenderness EXTREMITIES: Right upper extremity swelling redness slightly decreased - Labs CBC & Chem 7: 05/04/25 06:41 05/04/25 06:41 Labs: Microbiology - Last 24 Hours (Table) 04/29/25 20:48 Blood Culture - Final Blood 05/02/25 06:55 Gram Stain - Final Sputum Sputum Culture - Final Assessment and Plan (1) Sepsis Status: Acute Code(s): A41.9 - SEPSIS, UNSPECIFIED ORGANISM SNOMED Code(s): 54765376 (2) Right arm cellulitis Status: Acute Code(s): L03.113 - CELLULITIS OF RIGHT UPPER LIMB SNOMED Code(s): 40168983859942419 Plan: 1patient presented to hospital with sepsis in this patient who did have a low- grade fever patient did have tachycardia elevated white count elevated lactic acid meeting currently for SIRS/sepsis source is likely a combination of right upper extremity cellulitis plus minus abdominal source as the patient did have evidence of significant stool retention on CT, unfortunately CT was done without any contrast that limit the sensitivity of that testing 2patient is afebrile white count trending is down to 13,000, blood and sputum culture have been negative 3patient seems to be doing well with oral Keflex and improvement in right upper extremity cellulitis, plan is to finish therapy with 7-day course of oral Keflex discussed with the admitting physician Dictation was produced using [employer] dictation software. please excuse any grammatical, word or spelling errors. Time with Patient: Less than 30
--- NOTE | 2025-05-08 14:43 | CDI ---
Documentation Clarification Form Date: 05/08/2025 02:12:31 PM From: Carmina Killian Phone: Admit Date: 04/29/2025 09:49:00 PM Patient Name: Lyudmila Brower Visit Number: [id number] Discharge Date: 05/05/2025 03:05:00 PM ATTENTION: The Clinical Documentation Specialists (CDI) and [facility] Coding Staff appreciate your assistance in clarifying documentation. Please respond to the clarification below the line at the bottom and electronically sign. The CDI & [facility] Coding staff will review the response and follow-up if needed. Please note: Queries are made part of the Legal Health Record. If you have any questions, please contact the author of this message via ITS. Doctor/Provider: Arnold Arreaga Conflicting documentation has been found in the medical record. As attending physician, please provide clarification. MRSA infection per Progress Note per 05/03 Progress Note MRSAnasal screen and Sputum culturewere all negative per Microbiology Reports History/Risk Factors: 79yo F, acutecellulitis RUE, sepsis, AECOPD/asthma, AH/HRF w O2 (noncompliant), morbid obesity, Polymyalgia rheumatic, HTN, CDHF, hypothyroidism, Hx DVT/PE, former smoker Clinical Indicators: sepsis, RUE cellulitis, ELLIOT, lactic acidosis Treatment: Progress Note 05/01 Antibiotics include Vancomycin dosed per pharmacy, Flagyl 500 mg PO TID and Cefepime 2g IV BID. Progress Note 05/03 patient is being treated with cefepime and vancomycin while waiting for the culture to finalize DCS 05/05 ID added Flagyl to her ABx. BCx,MRSAnasal screen and Sputum culturewere all negative. Hercellulitisimproved and she was switched to Keflex to complete a total of 2 weeks antibiotics. Please clarify which diagnosis is most appropriate: [ ] MRSA infection ruled in [ x] MRSA infection ruled out [ ] Other (please specify) [ ] Unable to determine (Template Last Revised: January 2021) CASSYD
--- NOTE | 2025-05-08 14:54 | CDI ---
Documentation Clarification Form Date: 05/08/2025 02:43:56 PM From: Carmina Killian Phone: Admit Date: 04/29/2025 09:49:00 PM Patient Name: Lyudmila Brower Visit Number: [id number] Discharge Date: 05/05/2025 03:05:00 PM ATTENTION: The Clinical Documentation Specialists (CDI) and [facility] Coding Staff appreciate your assistance in clarifying documentation. Please respond to the clarification below the line at the bottom and electronically sign. The CDI & [facility] Coding staff will review the response and follow-up if needed. Please note: Queries are made part of the Legal Health Record. If you have any questions, please contact the author of this message via ITS. Doctor/Provider: Arnold Arreaga Hypotension is documented per H&P and patient is noted to have Cardizem drip for A Fib. Please clarify if there is a relationship between the diagnosis and medication. History/Risk Factors: 79yo F, sepsis, acute cellulitis RUE, sepsis, AECOPD/asthma, AH/HRF w O2 (noncompliant), morbid obesity, Polymyalgia rheumatic, HTN, CDHF, hypothyroidism, Hx DVT/PE, former smoker Clinical Indicators: Temp Pulse Resp BP Pulse Ox 04/29/25 22:00 128 H 22 111/56 98 04/29/25 20:52 98.0 F 133 H 20 106/75 98 04/29/25 20:45 124 H 04/29/25 20:39 129 H 04/29/25 20:19 126 H 20 112/59 97 04/29/25 20:02 115 H 23 98/58 97 04/29/25 19:52 87 23 86/50 98 04/29/25 19:40 148 H 20 104/66 98 04/29/25 19:30 99.6 F 146 H 25 H 88/63 Treatment: Treated initially with Cardizem drip but patient becamehypotensive. DiscontinueCardizem drip will start patient on amiodarone drip. Will order TSH andechocardiogram. Consult cardiology Please clarify the relationship, if any, which is clinically appropriate for this patient: [ x ] Hypotension is due to Cardizem drip [ ] Hypotension is not due to Cardizem drip [ ] Other explanation of clinical findings (please specify) [ ] Unable to determine (no explanation for clinical findings) (Template Last Revised: January 2021) MTDD
== END 2025-05-05 15:05 | DRG 871 ==
LOC: EC 19:25 → 3SCARD 21:49
PROVIDERS: ADMIT Student in an Organized Health Care Education/Training Program; ATTEND Student in an Organized Health Care Education/Training Program
PROC: 3E033RZ Introduction of Antiarrhythmic into Peripheral Vein, Percutaneous Approach (ICD-10-PCS; principal; 2025-04-29)
DX: A41.9 Sepsis, unspecified organism (principal); J96.21 Acute and chronic respiratory failure with hypoxia; J96.22 Acute and chronic respiratory failure with hypercapnia; I50.32 Chronic diastolic (congestive) heart failure; J44.1 Chronic obstructive pulmonary disease with (acute) exacerbation; E66.01 Morbid (severe) obesity due to excess calories; I11.0 Hypertensive heart disease with heart failure; I27.20 Pulmonary hypertension, unspecified; E03.9 Hypothyroidism, unspecified; M35.3 Polymyalgia rheumatica; Z68.41 Body mass index [BMI] 40.0-44.9, adult; L03.113 Cellulitis of right upper limb; N17.9 Acute kidney failure, unspecified; E87.21 Acute metabolic acidosis; J45.901 Unspecified asthma with (acute) exacerbation; J43.9 Emphysema, unspecified; K56.41 Fecal impaction; I48.91 Unspecified atrial fibrillation; R65.20 Severe sepsis without septic shock; J98.09 Other diseases of bronchus, not elsewhere classified; T38.0X5A Adverse effect of glucocorticoids and synthetic analogues, initial encounter; Z96.611 Presence of right artificial shoulder joint; T37.3X5A Adverse effect of other antiprotozoal drugs, initial encounter; I95.2 Hypotension due to drugs; T46.1X5A Adverse effect of calcium-channel blockers, initial encounter; M41.9 Scoliosis, unspecified; Z99.81 Dependence on supplemental oxygen; Z91.198 Patient's noncompliance with other medical treatment and regimen for other reason; Z79.01 Long term (current) use of anticoagulants; Z79.82 Long term (current) use of aspirin; Z79.890 Hormone replacement therapy; Z79.51 Long term (current) use of inhaled steroids; Z79.52 Long term (current) use of systemic steroids; Z86.718 Personal history of other venous thrombosis and embolism; Z86.711 Personal history of pulmonary embolism; Z87.891 Personal history of nicotine dependence; Z79.899 Other long term (current) drug therapy; Z96.653 Presence of artificial knee joint, bilateral
CPT/HCPCS: 36415; 36600; 71045; 71046; 74176; 80048; 80053; 80202; 81003; 82565; 82805; 83605; 83735; 83880; 84100; 84439; 84443; 84484; 85025; 85027; 86738; 87040; 87070; 87205; 87449; 93005; 93306; 94640; 94760; 96361; 96365; 96366; 96367; 96368; 96375; 96376; 99291